=== PATIENT | male | born 1950 | race Caucasian/White ===

== ENCOUNTER 2018-10-25 10:36 | Emergency (ER) | payer OTHER, SELFPAY ==
[2018-10-25 10:38] VITALS: BP 152/81; PULSE 92; RESP 16; TEMP 36.7; O2SAT 91; BMI 21.2
--- NOTE | 2018-10-25 10:48 | CT_ITS ---
STUDY: CT BRAIN WITHOUT CONTRAST REASON FOR EXAM: Male, 68 years old. Headache. RADIATION DOSAGE (If Supplied By Facility): CTDIvol = ( 60.81 ) mGy, DLP = ( 1067.08 ) mGycm TECHNIQUE: Transaxial CT imaging of the brain was performed without administration of intravenous contrast material. Individualized dose optimization techniques were used for this CT. COMPARISON: Comparison is made with prior study dated January 08, 2007. FINDINGS: Normal soft tissue structures. Normal calvarium. There is mild cerebral atrophy with widening of the extra-axial spaces and ventricular dilatation. There are areas of decreased attenuation within the white matter tracts of the supratentorial brain, consistent with microvascular disease changes. Normal basal ganglia and thalami. Normal brainstem. Normal cerebellum. There is no intracranial hemorrhage. There are no findings of an acute ischemic infarction. Opacification of the maxillary sinuses as well as the ethmoid sinuses and right sphenoid sinus. Partial opacification of the frontal sinus worse on the left side. CT/Brain/Head without Contrast IMPRESSION: Chronic involutional changes of the brain. Pansinusitis. Electronically Signed: David Castanon, at 12:58 EDT , Service support ,
--- NOTE | 2018-10-25 11:04 | ED.DCSUM_ITS ---
- ER Visit Summary Date of Service: 10/25/18 Chief Complaint: Headache, nausea, vomiting History of Present Illness: The patient is a 68 M who is otherwise healthy presents to the emergency department with gradual onset of headache, nausea, and one episode of emesis. The patient was recently diagnosed with flu. He finished his Tamiflu yesterday. He states he woke this morning with a dull pressure behind his eyes and fullness in his face. He states it feels like a sinus headache. It did not wake him from sleep. He denies any visual change. He denies any weakness, numbness, tingling, or change in gait. He has no history of aneurysm. He states that he was also nauseated and had one episode of emesis. He denies any abdominal pain. He had normal bowel movement yesterday. He denies any fevers or chills. He denies any other systemic complaints. Physical Examination: Well-appearing patient is in no acute distress. Head is normocephalic, atraumatic. Pupils equal round reactive, extraocular muscles intact. There is no temporal artery tenderness. There is no vesicular rash. Neck supple. Kernig's and Brudzinski's are negative. Heart regular rate and rhythm. Lungs clear, chest nontender. Abdomen soft, nontender, nondistended. Neuro exam displays no focal or lateralizing deficit. 2+ symmetric lower extremity reflexes. No clonus. No ataxia or gait abnormality. Test Results: [] Emergency Department Course and Treatment: The patient presents with facial pressure and dull headache. His symptoms do seem consistent with sinusitis. However, given his age, I did obtain a head CT. Screening labs are unremarkable. The patient was given fentanyl as I wanted to hold on Toradol until his CT was done. With this, he did have some transient hypoxia. The patient does have underlying history of COPD. He was able to be quickly weaned from the oxygen. He ambulated through the emergency department and kept his saturations greater than 92%. His chest x-ray was unremarkable. CT does con firm sinusitis. I am going to treat the patient with Augmentin. On reevaluation is resting comfortably. Is not meningitic. He is nonencephalopathic. His neuro exam is normal. He will be discharged home. Treatment Plan: Disposition: Discharge Impression: 1. Acute sinusitis This note was generated with Dragon dictation software. It may contain incorrect words, spelling, and punctuation that were not noted in review of the chart prior to signing ED Disposition - Plan for ED Patient: Instructions: ED Sinusitis Abx Tx Prescriptions: Amox/Clavulanate Tablet [Augmentin Tablet] 875 mg PO Q12H #20 tab Referrals: Luis Antonio Reed MD [Primary Care Provider] -
[2018-10-25 11:07] LABS: Absolute Lymphocyte Count 1.95 X10^3/ul (0.83-4.51); Absolute Neutrophil Count 6.7 X10^3/uL (2.0-7.7); Basophil# 0.02 X10^3/uL; Basophil% 0.2 % (0-1); Eosinophil# 0.09 X10^3/uL; Hematocrit 44.3 % (40-54); Hemoglobin 14.4 g/dl (13.0-16.5); Lymphocyte # 1.95 X10^3/ul (4.0); Lymphocyte % 20.6 % (19-41); Mean Corp Hgb Conc 32.5 g/gl (32-36); Mean Corpuscular Hgb 31.4 pg (27.0-32.0); Mean Corpuscular Volume 96.5 fL (80-94); Mean Platelet Vol. 9.3 fl (6.2-12.0); Monocyte# 0.64 X10^3/uL; Monocyte% 6.8 % (0-10); Neutrophil # 6.73 X10^3/uL (2.7-7.7); Neutrophil % 71.2 % (47-70); Platelet Count 301 K/mm3 (150-450); RBC Distribution Width SD 49.4 fl (35.1-43.9); Red Blood Count 4.59 M/mm3 (4.6-6.2); White Blood Count 9.5 K/mm3 (4.4-11.0)
[2018-10-25 11:10] LABS: POSITIVE COUNT NO; POSITIVE DIFFERENTIAL NO; POSITIVE MORPHOLOGY NO
[2018-10-25 11:21] LABS: ALB/GLOB Ratio 0.7 RATIO (0.9-2.4); AST(SGOT) 26 U/L (15-37); Alanine Aminotransfer ALT/SGPT 33 U/L (16-61); Albumin, Serum 3.1 g/dL (3.2-5.0); Alkaline Phosphatase 117 U/L (45-117); Anion Gap 8 (5-15); BUN 10 mg/dL (7-18); BUN/Creat Ratio 12.2 RATIO (10-20); Calcium,Total 8.9 mg/dL (8.5-10.1); Chloride 108 mmol/L (98-107); Creatinine, Serum 0.82 mg/dL (0.70-1.30); EST Glomerular Filtration Rate 99 mL/min (>60); Est Glom Filt Rate - Afr Amer 120 mL/min (>60); Estimated Creatinine Clearance 76.37 ml/min; Globulin 4.2 g/dL (2.2-4.2); Glucose 139 mg/dL (74-106); Potassium 3.6 mmol/L (3.5-5.1); Protein, Total 7.3 g/dL (6.4-8.2); Sodium Level 143 mmol/L (136-145)
[2018-10-25] MEDS: Ondansetron 4 MG/2 ML Vial IV (11:28)
[2018-10-25] MEDS: 0.9% Normal Saline 1,000 ML 1000 ML IV (11:28)
[2018-10-25] MEDS: fentaNYL 100 MCG/2 ML Ampul 50 MCG IV (11:28)
--- NOTE | 2018-10-25 11:54 | RAD_ITS ---
STUDY: X-RAY CHEST REASON FOR EXAM: Male, 68 years old. One day history of headaches and nausea. TECHNIQUE: Single AP portable view of the chest. COMPARISON: Comparison is made with prior study dated August 13, 2016. FINDINGS: EKG electrodes are seen. Hyperinflation. Stable increased linear markings at the lung bases suggestive of bibasilar scarring. There is no demonstrated pleural abnormality. Normal size heart. Normal mediastinum and genny. Normal visualized pulmonary arteries. Normal visualized aortic arch and descending thoracic aorta. There are diffuse degenerative changes of the visualized thoracic spine. Normal visualized ribs, clavicles, and shoulders. There is no demonstrated abnormality of the visualized soft tissue structures of the upper abdomen. RAD/Chest 1 View (Portable) IMPRESSION: Hyperinflation. No acute abnormality is seen. Electronically Signed: David Castanon, at 12:39 EDT , Service support ,
[2018-10-25 13:18] VITALS: BP 154/76; PULSE 77; RESP 20; O2SAT 93
[2018-10-25] MEDS: Amox/Clavulanate 875 MG Tablet PO (13:19)
[2018-10-25 14:04] VITALS: BP 146/76; PULSE 84; RESP 18; O2SAT 94
== END 2018-10-25 14:04 | disposition home or self-care (01) ==
PROVIDERS: Emergency Provider Emergency Medicine; Family Provider Family Medicine; PCP Family Medicine
DX: J01.90 Acute sinusitis, unspecified (principal); J44.9 Chronic obstructive pulmonary disease, unspecified; Z87.891 Personal history of nicotine dependence
CPT/HCPCS: 70450; 71045; 80053; 85025; 96361; 96374; 96375; 99285; J7030; A4216; J2405

== ENCOUNTER → 2022-06-14 | Outpatient (CLI) | payer MEDICARE, SELFPAY ==
[2022-06-14 17:50] LABS: Absolute Lymphocyte Count 2.16 X10^3/uL (0.83-4.51); Absolute Neutrophil Count 5.6 X10^3/uL (2.0-7.7); Basophil# 0.05 X10^3/uL; Basophil% 0.6 % (0-1); Eosinophil# 0.29 X10^3/uL; Eosinophils% 3.3 % (0-5); Hematocrit 44.2 % (40-54); Hemoglobin 14.3 g/dL (13.0-16.5); Lymphocyte # 2.16 X10^3/ul (0.83-4.51); Lymphocyte % 24.6 % (19-41); Mean Corp Hgb Conc 32.4 g/dL (32-36); Mean Corpuscular Hgb 31.7 pg (27.0-32.0); Mean Platelet Vol. 9.6 fl (6.2-12.0); Monocyte# 0.61 X10^3/uL; Monocyte% 6.9 % (0-10); NRBC Flagged by Analyzer 0 % (0-5); Neutrophil # 5.64 X10^3/uL (2.7-7.7); Neutrophil % 64.3 % (47-70); Platelet Count 318 K/mm3 (150-450); RBC Distribution Width CV 13.6 % (11.6-14.6); RBC Distribution Width SD 49.5 fl (35.1-43.9); Red Blood Count 4.51 M/mm3 (4.6-6.2); White Blood Count 8.8 K/mm3 (4.4-11.0)
[2022-06-14 19:29] LABS: ALB/GLOB Ratio 0.9 RATIO (0.9-2.4); AST(SGOT) 14 U/L (15-37); Alanine Aminotransfer ALT/SGPT 22 U/L (16-61); Albumin, Serum 3.6 g/dL (3.2-5.0); Alkaline Phosphatase 84 U/L (45-117); Anion Gap 6 (5-15); BUN 8 mg/dL (7-18); BUN/Creat Ratio 8.5 RATIO (10-20); Chloride 104 mmol/L (98-107); Cholesterol 137 mg/dL (200); Creatinine, Serum 0.95 mg/dL (0.70-1.30); EST Glomerular Filtration Rate 83 mL/min (>60); Est Glom Filt Rate - Afr Amer 101 mL/min (>60); Globulin 3.9 g/dL (2.2-4.2); Glucose 97 mg/dL (74-106); High Density Lipoprotein 54 mg/dL; Potassium 4.6 mmol/L (3.5-5.1); Protein, Total 7.5 g/dL (6.4-8.2); Sodium Level 138 mmol/L (136-145); Triglycerides 84 mg/dL; Very Low Density Lipoprotein 17 mg/dL (5-40)
== END | disposition home or self-care (01) ==
PROVIDERS: PCP Family Medicine; Visit Provider Family Medicine
DX: I25.10 Atherosclerotic heart disease of native coronary artery without angina pectoris (principal); E78.5 Hyperlipidemia, unspecified; R06.00 Dyspnea, unspecified
CPT/HCPCS: 36415; 80053; 80061; 84443; 85025

== ENCOUNTER → 2022-07-27 | Outpatient (CLI) | payer MEDICARE, SELFPAY ==
--- NOTE | 2022-07-27 13:02 | CT_ITS ---
STUDY: LOW DOSE CT LUNG CANCER SCREENING REASON FOR EXAM: Male, 71 years old. Lung cancer screening -- 40 no suspicious nodules are seen. Yr hx;former smoker;asymptomatic RADIATION DOSAGE (If Supplied By Facility): CTDIvol = ( 4.02 ) mGy, DLP = ( 143.46 ) mGycm TECHNIQUE: No contrast was administered. Low dose technique was utilized (average mAS-38 and kVp 120). 1.25 mm axial source images with a slice interval of 1.25-mm were reconstructed in lung windows. 2.5 mm axial source images with a slice interval of 2.5-mm were reconstructed in lung windows. 5.0 mm axial source images with a slice interval of 5.0-mm were reconstructed in soft tissue windows. COMPARISON: None. NODULES: Emphysema: Emphysematous changes more prominent in the upper lobes with a centrilobular emphysematous changes. Pleural-based bulla are seen in the right lateral chest. Mild linear scarring at the lung bases as well as in the right middle lobe. Endobronchial lesion: None Aorta: Minimal atherosclerotic plaque formation. CORONARY ARTERIES: Coronary artery calcification is seen. Heart: Unremarkable Pulmonary artery: Unremarkable Mediastinal nodes: Small mediastinal lymph nodes. Other chest and abdominal findings: CT/Low Dose CT Lung Screening IMPRESSION: Lung-RADS category 2 - Continue annual screening with LDCT in 12 months. IMPORTANT NOTES FOR USE: ACR Lung-RADS Version 1.1 Assessment Categories Release Date: 2018 Category: Coded 0-4 bases on nodule(s) with highest degree of suspicion. Negative screen is defined as categories 1 and 2; a positive screen is defined as categories 3 and 4. Category 3 and 4A nodules that are unchanged on interval CT should be coded as category 2, and individuals returned to screening in 12 months. Category 4X: Category 3 or 4 nodules with additional imaging findings that increase the suspicion of lung cancer, such as spiculation, GGN that doubles in size in 1 year, enlarged lymph notes, etc. Category Modifiers: S (significant finding unrelated to lung cancer) Electronically Signed: David Castanon MD at 13:31 EST ,
== END | disposition home or self-care (01) ==
PROVIDERS: PCP Family Medicine; Visit Provider Nurse Practitioner Family
DX: Z12.2 Encounter for screening for malignant neoplasm of respiratory organs (principal); I70.0 Atherosclerosis of aorta; I25.10 Atherosclerotic heart disease of native coronary artery without angina pectoris; R91.8 Other nonspecific abnormal finding of lung field; J98.4 Other disorders of lung; Z87.891 Personal history of nicotine dependence
CPT/HCPCS: 71271

== ENCOUNTER → 2023-06-17 | Outpatient (CLI) | payer MEDICARE, SELFPAY ==
[2023-06-17 12:48] LABS: Absolute Neutrophil Count 5.4 X10^3/uL (2.0-7.7); Basophil# 0.04 X10^3/uL; Basophil% 0.5 % (0-1); Eosinophil# 0.25 X10^3/uL; Eosinophils% 3.1 % (0-5); Hematocrit 46.7 % (40-54); Hemoglobin 14.8 g/dL (13.0-16.5); Lymphocyte % 21.2 % (19-41); Mean Corp Hgb Conc 31.7 g/dL (32-36); Mean Corpuscular Hgb 30.9 pg (27.0-32.0); Mean Corpuscular Volume 97.5 fL (80-94); Mean Platelet Vol. 9.3 fl (6.2-12.0); Monocyte# 0.62 X10^3/uL; Monocyte% 7.7 % (0-10); NRBC Flagged by Analyzer 0 % (0-5); Neutrophil % 67.4 % (47-70); Platelet Count 321 K/mm3 (150-450); RBC Distribution Width CV 13.5 % (11.6-14.6); RBC Distribution Width SD 49.7 fl (35.1-43.9); Red Blood Count 4.79 M/mm3 (4.6-6.2)
[2023-06-17 12:54] LABS: AST(SGOT) 15 U/L (15-37); Alanine Aminotransfer ALT/SGPT 24 U/L (16-61); Albumin, Serum 3.8 g/dL (3.2-5.0); Alkaline Phosphatase 93 U/L (45-117); Anion Gap 4 (5-15); BUN 13 mg/dL (7-18); Calcium,Total 9.1 mg/dL (8.5-10.1); Chloride 105 mmol/L (98-107); Cholesterol 148 mg/dL (200); EST Glomerular Filtration Rate 78 mL/min (>60); Est Glom Filt Rate - Afr Amer 94 mL/min (>60); Globulin 3.8 g/dL (2.2-4.2); Glucose 112 mg/dL (74-106); High Density Lipoprotein 59 mg/dL; Potassium 4.3 mmol/L (3.5-5.1); Protein, Total 7.6 g/dL (6.4-8.2); Sodium Level 138 mmol/L (136-145); Triglycerides 112 mg/dL; Very Low Density Lipoprotein 22 mg/dL (5-40)
== END | disposition home or self-care (01) ==
LOC: BFHLAB 10:52
PROVIDERS: PCP Family Medicine; Visit Provider Nurse Practitioner Family
DX: E78.5 Hyperlipidemia, unspecified (principal); I10 Essential (primary) hypertension
CPT/HCPCS: 36415; 80053; 80061; 85025

== ENCOUNTER → 2023-08-16 | Outpatient (CLI) | payer MEDICARE, SELFPAY ==
--- NOTE | 2023-08-16 14:59 | CT_ITS ---
EXAM: CT CHEST, LUNG CANCER SCREENING WITHOUT INTRAVENOUS CONTRAST CLINICAL INDICATION: SCREEN TECHNIQUE: Helically acquired images were obtained of the chest without intravenous contrast using low dose (LDCT) lung cancer screening protocol. This CT exam was performed using one or more of the following dose reduction techniques: automated exposure control, adjustment of the mA and/or kV according to patient size, and/or use of iterative reconstruction technique. COMPARISON: 07/27/2022 FINDINGS: LUNGS AND PLEURAL SPACES: There is mild emphysematous change in the right upper lobe. There is minimal scarring in the right middle lobe and lung bases. No mass. No pleural effusion or thickening. No pneumothorax. HEART: Unremarkable. Heart size is normal. No pericardial effusion. No significant coronary artery calcifications. MEDIASTINUM: Unremarkable. No mediastinal or hilar adenopathy. Esophagus is unremarkable. No hiatal hernia. THYROID: Unremarkable. No thyroid lesions. BONES/JOINTS: Unremarkable. No suspicious lytic or blastic abnormality. VASCULATURE: Unremarkable. Thoracic aorta is non-dilated. LYMPH NODES: Unremarkable. No enlarged lymph nodes. CT/Low Dose CT Lung Screening IMPRESSION: No acute pulmonary abnormality. There are emphysematous changes in the upper lobes with minimal scarring. There has been no significant change from the reference exam. Lung-RADS score: 1 - Recommend continued annual screening with a low-dose CT (LDCT) in 12 months. Electronically Signed: Evert Montalvo MD at 0:01 EST ,
--- OUTSIDE RECORDS SUMMARY | 2023-08-16 17:38 | XMS RPT_ITS | CCD ---
Author Name Unknown Address [address] [facility] [address] [place] [address] Organization [facility] Care Team Providers Care Firer [employer] Name Role Phone DIMITRY FRYE Unavailable Unavailable MIRIZACH Attending Unavailable MIRIZACH Primary Care Unavailable MIRIZACH BLAKE Admitting Unavailable MIRIZACH Attending Unavailable MIRIZACH BLAKE Primary Care Unavailable MIRIZACH Admitting Unavailable Allergies Allergy Classification Reported Allergen(s) Allergy Type Date of Onset Reaction(s) Facility (1 source) morphine; Translations: [MORPHINE] Drug Allergy 0 AOF [facility] Repository (1 source) OTHER; Translations: [OTHER] Propensity to adverse reactions (disorder) [facility] Repository Results Test Name Value Interpretation Reference Range Facil ity Encounters Encounter Date Encounter Type Care Provider Facility Start: 11-10-2020 End: 11-10-2020 Patient encounter procedure ZACH Holly [facility] Start: 10-20-2020 End: 10-20-2020 Patient encounter procedure ZACH Holly [facility] Start: 11-24-2017 End: 11-25-2017 Ambulatory DIMITRY FRYE [facility] Start: 02-14-2017 End: 02-18-2017 Ambulatory DIMITRY FRYE [facility] Summary Purpose Family History No Family History Records FoundNo Family History Records Found Advance Directives No Advanced Directives Records FoundNo Advanced Directives Records Found Additional Source Comments (unrecognized sect ion and content) No Status Records FoundNo Status Records Found INFORMATION SOURCE (unrecogn ized section and content) DATE CREATED AUTHOR AUTHOR'S MUSA ATCHAYA 11/19/2020 [facility] FOR RECORDS PERTAINING TO PATIENTS WHO ARE OR HAVE BEEN ENROLLED IN A CHEMICAL DEPENDENCY/SUBSTANCEABUSE PROGRAM, SOME INFORMATION MAY BE OMITTED. This clinical summary was aggregated from multiple sources. Caution should be exercised in using it in the provision of clinical care. This summary normalizes information from multiple sources, and as a consequence, information in this document may materially change the coding, format and clinical context of patient data. In addition, data may be omitted in some cases. CLINICAL DECISIONS SHOULD BE BASED ON THE PRIMARY CLINICAL RECORDS. [facility] [employer] [facility]. provides no warranty or guarantee of the accuracy or completeness of information in this document.
== END | disposition home or self-care (01) ==
LOC: CT 14:59
PROVIDERS: PCP Nurse Practitioner Family; Referring Provider Nurse Practitioner Family; Visit Provider Nurse Practitioner Family
DX: Z12.2 Encounter for screening for malignant neoplasm of respiratory organs (principal); F17.210 Nicotine dependence, cigarettes, uncomplicated
CPT/HCPCS: 71271

== ENCOUNTER → 2023-09-30 | Outpatient (CLI) | payer MEDICARE, SELFPAY ==
[2023-09-30 15:52] LABS: Absolute Lymphocyte Count 1.96 X10^3/uL (0.83-4.51); Absolute Neutrophil Count 6.6 X10^3/uL (2.0-7.7); Basophil# 0.05 X10^3/uL; Basophil% 0.5 % (0-1); Eosinophil# 0.28 X10^3/uL; Eosinophils% 2.9 % (0-5); Hematocrit 43.9 % (40-54); Hemoglobin 13.8 g/dL (13.0-16.5); Lymphocyte # 1.96 X10^3/ul (0.83-4.51); Lymphocyte % 20.4 % (19-41); Mean Corp Hgb Conc 31.4 g/dL (32-36); Mean Corpuscular Hgb 30.7 pg (27.0-32.0); Mean Corpuscular Volume 97.8 fL (80-94); Mean Platelet Vol. 9.4 fl (6.2-12.0); Monocyte# 0.73 X10^3/uL; Monocyte% 7.6 % (0-10); NRBC Flagged by Analyzer 0 % (0-5); Neutrophil # 6.55 X10^3/uL (2.7-7.7); Neutrophil % 68.3 % (47-70); Platelet Count 405 K/mm3 (150-450); RBC Distribution Width CV 13.3 % (11.6-14.6); RBC Distribution Width SD 47.9 fl (35.1-43.9); Red Blood Count 4.49 M/mm3 (4.6-6.2); White Blood Count 9.6 K/mm3 (4.4-11.0)
[2023-09-30 16:35] LABS: ALB/GLOB Ratio 0.8 RATIO (0.9-2.4); AST(SGOT) 17 U/L (15-37); Alanine Aminotransfer ALT/SGPT 28 U/L (16-61); Albumin, Serum 3.3 g/dL (3.2-5.0); Alkaline Phosphatase 93 U/L (45-117); Anion Gap 4 (5-15); BUN 8 mg/dL (7-18); Calcium,Total 9.4 mg/dL (8.5-10.1); Chloride 102 mmol/L (98-107); Creatinine, Serum 0.89 mg/dL (0.70-1.30); EST Glomerular Filtration Rate 89 mL/min (>60); Est Glom Filt Rate - Afr Amer 107 mL/min (>60); Globulin 4.3 g/dL (2.2-4.2); Glucose 111 mg/dL (74-106); Magnesium 2.4 mg/dL (1.6-2.6); Potassium 4.1 mmol/L (3.5-5.1); Protein, Total 7.6 g/dL (6.4-8.2); Sodium Level 136 mmol/L (136-145)
== END | disposition home or self-care (01) ==
LOC: BFHLAB 13:46
PROVIDERS: PCP Nurse Practitioner Family; Visit Provider Nurse Practitioner Family
DX: R25.2 Cramp and spasm (principal)
CPT/HCPCS: 36415; 80053; 83735; 85025

== ENCOUNTER → 2023-10-11 | Outpatient (CLI) | payer MEDICARE, SELFPAY ==
--- NOTE | 2023-10-11 13:38 | ADU_ITS ---
Reason For Study: cramps and spasms Right Velocities Left Velocities Ext. Iliac Artery, dist = 168.2 cm./sec. Ext Iliac Artery, dist = 170.8 cm./sec. Common Femoral Artery, mid = 160.4 cm./sec. Common Femoral Artery, mid = 177.5 cm./sec. Supf Femoral Artery, prox = 144.9 cm./sec. Supf. Femoral Artery, prox = 195.9 cm./sec. Supf Femoral Artery, mid = 213.0 cm./sec. Supf. Femoral Artery, mid = 89.7 cm./sec. Common Femoral Artery, dist = 92.8 cm./sec. Supf. Femoral Artery, dist = 105.2 cm./sec. Supf Femoral Artery, dist. = 92.8 cm./sec. Profunda Femoral Artery = 113.1 cm./sec. Profunda Femoral Artery = 72.3 cm./sec. Popliteal Artery, proximal, = 120.8 cm./sec. Popliteal Artery, prox. = 212.8 cm./sec. Ant.Tibial Artery, prox = 68.7 cm./sec. Ant. Tibial Artery, prox = 146.9 cm./sec. Ant Tibial Artery, mid = 68.7 cm./sec. Ant. Tibial Artery, mid = 94.2 cm./sec. Ant. Tibial Artery, distal = 70.5 cm./sec. Ant. Tibial Artery, dist = 105.1 cm./sec. Post. Tibial Artery, prox = 92.4 cm./sec. Post. Tibial Artery, prox = 54.2 cm./sec. Post Tibial Artery, mid = 65.0 cm./sec. Post. Tibial Artery, mid = 67.1 cm./sec. Post Tibial Artery, dist. = 92.4 cm./sec. Post. Tibial Artery, dist = 38.2 cm./sec. Peroneal Artery, prox = 37.6 cm./sec. Peroneal Artery, prox = 71.1 cm./sec. Peroneal Artery, mid = 74.2 cm./sec. Peroneal Artery, mid = 96.6 cm./sec. Peroneal Artery,dist. = 70.5 cm./sec. Peroneal Artery,dist = 72.9 cm./sec. Procedure The exam was diagnostic. Exam performed in department. VL/US Art Duplex Bilat Lower Ext Interpretation Summary Right lower extremity arteries patent with normal velocities and no stenosis id entified. Posterior tibial artery with diminished waveforms. Left lower extremity arteries patent with normal velocities and no evidence of stenosis. Normal waveforms throughout Ordering Physician: Nataliya Blanca Performed By: Angel Frost RVT
== END | disposition home or self-care (01) ==
LOC: CVS 13:37
PROVIDERS: PCP Nurse Practitioner Family; Referring Provider Nurse Practitioner Family; Visit Provider Nurse Practitioner Family
DX: R25.2 Cramp and spasm (principal); R29.898 Other symptoms and signs involving the musculoskeletal system; R09.89 Other specified symptoms and signs involving the circulatory and respiratory systems
CPT/HCPCS: 93925

== ENCOUNTER → 2023-10-14 | Outpatient (CLI) | payer MEDICARE, SELFPAY ==
--- NOTE | 2023-10-14 12:00 | RAD_ITS ---
STUDY: X-RAY - LUMBAR SPINE REASON FOR EXAM: Male, 72 years old. LEG PAIN TECHNIQUE: 4 view(s) of the lumbar spine were obtained. COMPARISON: None FINDINGS: Normal lumbar lordosis. There is no substantial scoliosis. There is a normal alignment of the vertebrae. Normal vertebral bodies with spurring at the endplates. Normal disc space heights. The soft tissue structures are unremarkable. Calcified aorta. RAD/L/S Spine Min 4 Views IMPRESSION: Degenerative changes of the lumbar vertebral column. Electronically Signed: Morteza Gil DO at 18:36 EST Reading Location ID and State: [facility] / [place] Tel [phone], Service support ,
--- OUTSIDE RECORDS SUMMARY | 2023-10-14 12:16 | XMS RPT_ITS | CCD ---
Author Name Unknown Address [address] [facility] [address] [place] [address] Organization [facility] Care Team Providers Care Director Post Name Role Phone DIMITRY FRYE Unavailable Unavailable MIRIZACH Attending Unavailable MIRIZACH Primary Care Unavailable MIRIZACH BLAKE Admitting Unavailable MIRIZACH Attending Unavailable MIRIAZCH BLAKE Primary Care Unavailable MIRIZACH Admitting Unavailable Allergies Allergy Classification Reported Allergen(s) Allergy Type Date of Onset Reaction(s) Facility (1 source) morphine; Translations: [MORPHINE] Drug Allergy 0 AOF [facility] Repository (1 source) OTHER; Translations: [OTHER] Propensity to adverse reactions (disorder) [facility] Repository Results Test Name Value Interpretation Reference Range Facil ity Encounters Encounter Date Encounter Type Care Provider Facility Start: 11-10-2020 End: 11-10-2020 Patient encounter procedure ZACH Holly [facility] Start: 10-20-2020 End: 10-20-2020 Patient encounter procedure ZACH Holly [facility] Start: 11-24-2017 End: 11-25-2017 Ambulatory DIMITRY FRYE [facility] Start: 02-14-2017 End: 02-18-2017 Ambulatory DIMITRY FRYE [facility] Summary Purpose Family History No Family History Records FoundNo Family History Records Found Advance Directives No Advanced Directives Records FoundNo Advanced Directives Records Found Additional Source Comments (unrecognized sect ion and content) No Status Records FoundNo Status Records Found INFORMATION SOURCE (unrecogn ized section and content) DATE CREATED AUTHOR AUTHOR'S MUSA ATCHAYA 11/19/2020 [facility] FOR RECORDS PERTAINING TO PATIENTS WHO [...] BE BASED ON THE PRIMARY CLINICAL RECORDS. [facility] [employer] [facility]. provides no warranty or guarantee of the accuracy or completeness of information in this document.
== END | disposition home or self-care (01) ==
LOC: RAD 11:55
PROVIDERS: PCP Nurse Practitioner Family; Referring Provider Nurse Practitioner Family; Visit Provider Nurse Practitioner Family
DX: M79.604 Pain in right leg (principal); M79.605 Pain in left leg
CPT/HCPCS: 72100; 72110

== ENCOUNTER → 2024-03-05 | Outpatient (CLI) | payer MEDICARE, SELFPAY ==
--- NOTE | 2024-03-05 13:30 | RAD_ITS ---
STUDY: X-RAY CHEST REASON FOR EXAM: Male, 73 years old. COUGH - R/O PNEUMONIA TECHNIQUE: PA and lateral views of the chest. COMPARISON: Comparison is made with prior study dated October 25, 2018. FINDINGS: There is hyperinflation of the lungs consistent with chronic obstructive lung disease (COPD). Increased markings are seen in the right lower lobe with areas of confluence. Early infiltrate should be ruled out. Radiographic follow-up recommended. There is no demonstrated pleural abnormality. Normal size heart. Normal mediastinum and genny. There is prominence of the pulmonary hilar arteries without peripheral pulmonary vascular congestion, suggesting pulmonary hypertension. Normal visualized aortic arch and descending thoracic aorta. There are diffuse degenerative changes of the visualized thoracic spine. There is deformity of the right scapula. There is no demonstrated abnormality of the visualized soft tissue structures of the upper abdomen. RAD/Chest PA and Lateral IMPRESSION: Hyperinflation. Increased markings at the right lung base suggestive of early infiltrate. Follow-up recommended. Electronically Signed: David Castanon MD at 12:41 EDT ,
== END | disposition home or self-care (01) ==
LOC: MTRAD 13:29
PROVIDERS: PCP Nurse Practitioner Family; Referring Provider Nurse Practitioner Family; Visit Provider Nurse Practitioner Family
DX: R05.9 Cough, unspecified (principal); J44.9 Chronic obstructive pulmonary disease, unspecified
CPT/HCPCS: 71046

== ENCOUNTER → 2024-06-18 | Outpatient (CLI) | payer MEDICARE, SELFPAY ==
--- OUTSIDE RECORDS SUMMARY | 2024-06-18 17:08 | XMS RPT_ITS | CCD ---
Author Organization [facility] Care Team Providers Care Sports Equipment Racker Name Role Phone DIMITRY FRYE Unavailable Unavailable MIRIZACH Attending Unavailable MIRI, ZACH Holly Primary Care Unavailable MIRIZACH Admitting Unavailable MIRI, ZACH Holly Attending Unavailable MIRI, ZACH Holly Primary Care Unavailable MIRI, ZACH Holly Admitting Unavailable Allergies Allergy Classification Reported Allergen(s) Allergy Type Date of Onset Reaction(s) Facility (1 source) morphine; Translations: [MORPHINE] Drug Allergy 0 AOF [facility] Repository (1 source) OTHER; Translations: [OTHER] Propensity to adverse reactions (disorder) [facility] Repository Results Test Name Value Interpretation Reference Range Facility [facility] 11-24-2017 CNOV Office Visit (UCWSTR) LÁZARO SMITH ([id number]) 1950 MDate Time Provider Department11/24/17 4:45 PM KELLI HAIRSTON (ALEJANDRO) WSTR During your visit today, we recorded the following information about you: Temperature Pulse Respiration Blood pressure 98.8 degrees 102/minute 18/minute 122/78 Weight 78 kgKelli Hairston APRN.CNP 11/24/2017 5:06 PM SignedSubjectiveHPIHPI Lázaro Caro Willie is a 67 year old male who presents today for CC of coughThis started today. He is also having body aches. Symptoms are worsened bylying down. he has tried no treatment or medicaitons Risk factors co workersPMH COPD, h/o 20+ years smoking.BP 122/78 Pulse 102 Temp 37.1 ?C (98.8 ?F) (Tympanic) Resp 18 Wt 78 kg(172 lb) SpO2 95%ALLERGIESAllergen Reactions- Environmental [Othe*- Morphine Vomiting- Latex Lind [Other]ACTIVE PROBLEM LISTUnspecified Cardiovascular DiseaseChest Pain, UnspecifiedEsophageal RefluxPure HypercholesterolemiaUnspecified Asthma(493.90)Allergy, Unspecified Not Elsewhere ClassifiedUnspecified Essential HypertensionOther Voice and Resonance DisordersAbdominal Pain, Unspecified SiteHypertrophy of Prostate With Urinary Obstruction and Other Lower Urinary TractSymptoms (Luts)Chronic ProstatitisBack PainBladder Neck ObstructionClosed Fracture of Unspecified Part of ScapulaAdhesive Capsulitis of ShoulderFamily HistoryProblem Relation Age of Onset- Cancer Father liver- Heart MotherSocial History Marital status: Spouse name: Laura Years of education: Number of children: 3Occupational HistoryOccupation Employer Comment [employer]*Social History Main Topics Smoking status: Former Smoker Packs/day: 1.50 Years: 20.00 Types: Cigarettes Quit date: 08/15/2007 Smokeless status: Never Used Alcohol use: Yes Comment: hx alcoholism Drug use: No Sexual activity: Yes Partners with: FemaleReview of SystemsConstitutional: Negative. Negative for chills, fever and malaise/fatigue.HENT: Negative for congestion, ear pain, sinus pain and sore throat.Respiratory: Positive for cough. Negative for sputum production, shortness ofbreath and wheezing.Cardiovascular: Negative for chest pain.Musculoskeletal: Positive for myalgias.Skin: Negative for rash.Neurological: Negative for headaches.ObjectivePhysical ExamConstitutional: He is well-developed, well-nourished, and in no distress.HENT:Head: Normocephalic and atraumatic.Right Ear: Tympanic membrane, external ear and ear canal normal. Tympanicmembrane is not injected, not erythematous, not retracted and not bulging. Nomiddle ear effusion.Left Ear: Tympanic membrane, external ear and ear canal normal. Tympanicmembrane is not injected, not erythematous, not retracted and not bulging. Nomiddle ear effusion.Nose: Mucosal edema and rhinorrhea present. Right sinus exhibits no maxillarysinus tenderness and no frontal sinus tenderness. Left sinus exhibits nomaxillary sinus tenderness and no frontal sinus tenderness.Mouth/Throat: Uvula is midline and mucous membranes are normal. Posteriororopharyngeal erythema present. No oropharyngeal exudate, posteriororopharyngeal edema or tonsillar abscesses.Eyes: Conjunctivae and EOM are normal. Pupils are equal, round, and reactive tolight.Neck: Normal range of motion.Cardiovascular: Normal rate, regular rhythm and normal heart sounds.Pulmonary/Chest: Effort normal. No respiratory distress. He has no decreasedbreath sounds. He has wheezes (scattered expiratory). He has no rhonchi. He hasno rales.Lymphadenopathy: Head (right side): No submental, no submandibular, no tonsillar, nopreauricular and no posterior auricular adenopathy present. Head (left side): No submental, no submandibular, no tonsillar, nopreauricular and no posterior auricular adenopathy present. He has no cervical adenopathy. Right cervical: No posterior cervical adenopathy present. Left cervical: No posterior cervical adenopathy present. Right: No supraclavicular adenopathy present. Left: No supraclavicular adenopathy present.Skin: Skin is warm and dry.Psychiatric: Affect normal.Nursing note and vitals reviewed. ASSESSMENT/PLAN:1. COPD with exacerbation (HCC) - ICD9: 491.21, ICD10: J44.1 (primary diagnosis)- Discussed use of Prednisone 5 day course and albuterol inhaler as needed forcough, wheeze, shortness of breath* Prednisone 40 mg (2 tablets) per day for 5 days, take in morning or early inday* Do not NSAIDs during this 5 day course (ibuprofen, naproxen, Motrin, Aleve,Advil) Tylenol only during prednisone use* Follow up with primary care provider if no improvement with treatment* Seek medical care immediately, call 911, go to ER if you have chest pain,difficulty breathing, shortness of breath, inability to swallow.Rest, oral fluids, tylenol or motrin as needed for pain or feverSee your doctor if not improvingSeek emergency room care for worsening symptoms or condition changesPrednisone for airway congestion/wheezing/coughingZithro max for infection please take as directed and finish the entireprescription unless instructed otherwise - start if symptoms worsen, and notalleviated by prednisone and albuterol2. Cough - ICD9: 786.2, ICD10: [id number] and treatment plan were discussed and questions were answered to thepatient's satisfaction. Pt acknowledged understanding of concepts and follow upplan.Specific signs and symptoms that would indicate the need for higher level ofcare were discussed in detail warranting prompt ER evaluation.Pebbles Hernadez APRN.CNP 11/24/2017 5:02 PM SignedASSESSMENT/PLAN:1. COPD with exacerbation (HCC) - ICD9: 491.21, ICD10: J44.1 (primary diagnosis)- Discussed use of Prednisone 5 day course and albuterol inhaler as needed forcough, wheeze, shortness of breath* Prednisone 40 mg (2 tablets) per day for 5 days, take in morning or early inday* Do not NSAIDs during this 5 day course (ibuprofen, naproxen, Motrin, Aleve,Advil) Tylenol only during prednisone use* Follow up with primary care provider if no improvement with treatment* Seek medical care immediately, call 911, go to ER if you have chest pain,difficulty breathing, shortness of breath, inability to swallow.Rest, oral fluids, tylenol or motrin as needed for pain or feverSee your doctor if not improvingSeek emergency room care for worsening symptoms or condition changesPrednisone for airway congestion/wheezing/coughingZithro max for infection please take as directed and finish the entireprescription unless instructed otherwise - start if symptoms worsen, and notalleviated by prednisone and albuterol2. Cough - ICD9: 786.2, ICD10: Z06Faeexvsbm Provider: SELF [200]Allergies As of Date: 11/24/2017 Noted Allergy ReactionENVIRONMENTAL [Other] 03/31/2005MORPHINE 12/18/2009 11 - Vomitinglatex paint [Other] 04/08/2006Date Reviewed: 11/24/2017Reviewed by: Kelli Hairston - Fully AssessedReason for Visit: cough and HOBSON [Other] Cmt: symptoms started this amPrimary Visit Diagnosis:COPD with exacerbation (HCC) [J44.1] Other Visit Diagnosis:Cough [R05]Order(s):predniSONE (DELTASONE) 20 mg tabletPrednisone 40 mg (2-20mg tablets) po QD for 5 daysDisp: 10 tabletRfl: 0 azithromycin (ZITHROMAX Z-FARRUKH) 250 mg tabletTake 2 tablets day one, then, 1 tablet daily until gone.Disp: 1 PackageRfl: 0Prescriptions as of 11/24/2017 Sig: DISULFIRAM 500 MG TABLET CLOPIDOGREL 75 MG TABLET HYOSCYAMINE 0.125 MG SUBLINGU* Take 1 tablet by mouth twice * DEXLANSOPRAZOLE 60 MG CAPSULE* Take by mouth. ZOCOR 40 MG TABLET Take one(1) tablet two(2) nuria* IMDUR 30 MG TABLET,EXTENDED R* 1/2 tab a day FISH OIL 500 MG CAPSULE Take one(1) capsule daily. DXVFOMAOSMDQE-SKEGIAQRGEGJR-Q* as needed for migraines ZONEGRAN 100 MG CAPSULE once daily NITROSTAT 0.4 MG SUBLINGUAL T* Place one(1) tablet on tongue* TOPROL XL 25 MG TABLET,EXTEND* Take one(1) tablet daily. CENTRUM SILVER TABLET Take one(1) tablet daily. FOLIC ACID 400 MCG TABLET Take one(1) tablet daily. PREDNISONE 20 MG TABLET Prednisone 40 mg (2-20mg tabl* AZITHROMYCIN 250 MG TABLET Take 2 tablets day one, then,*Problem List As Of Date 11/24/2017 Noted Resolved ASCVD [I25.10] INVALID FOR* CHEST PAIN NOS [R07.9] INVALID FOR* ESOPHAGEAL REFLUX [K21.9] INVALID FOR* PURE HYPERCHOLESTEROLEM [E78.00] INVALID FOR* ASTHMA UNSPECIFIED [J45.909] INVALID FOR* ALLERGY, UNSPECIFIED [T78.40XA] INVALID FOR* HYPERTENSION NOS [I10] INVALID FOR* VOICE DISTURBANCE NEC [R49.8] INVALID FOR* ABDOMINAL PAIN UNSPEC SITE [R10.9] INVALID FOR* HYPERTROPHY PROSTATE WITH OBST [N40.1] INVALID FOR* CHRONIC PROSTATITIS [N41.1] INVALID FOR* Back Pain [M54.9] INVALID FOR* Bladder Neck Obstruction [N32.0] INVALID FOR* Closed Fracture of Unspecified Part of Scapula *INVALID FOR* Adhesive Capsulitis of Shoulder [M75.00] INVALID FOR* Other instructions from your clinician: ASSESSMENT/PLAN: 1. COPD with exacerbation (HCC) - ICD9: 491.21, ICD10: J44.1 (primary diagnosis) - Discussed use of Prednisone 5 day course and albuterol inhaler as needed for cough, wheeze, shortness of breath * Prednisone 40 mg (2 tablets) per day for 5 days, take in morning or early in day * Do not NSAIDs during this 5 day course (ibuprofen, naproxen, Motrin, Aleve, Advil) Tylenol only during prednisone use * Follow up with primary care provider if no improvement with treatment * Seek medical care immediately, call 911, go to ER if you have chest pain, difficulty breathing, shortness of breath, inability to swallow. Rest, oral fluids, tylenol or motrin as needed for pain or fever See your doctor if not improving Seek emergency room care for worsening symptoms or condition changes Prednisone for airway congestion/wheezing/coughing Zithromax for infection please take as directed and finish the entire prescription unless instructed otherwise - start if symptoms worsen, and not alleviated by prednisone and albuterol 2. Cough - ICD9: 786.2, ICD10: [id number] ordered this encounter Disp Refills Start End PREDNISONE 20 MG TABLET 10 t* 0 11/24/2017 Sig: Prednisone 40 mg (2-20mg tablets) po QD for 5 days AZITHROMYCIN 250 MG TABLET 1 Pa* 0 11/24/2017 11/29/2017 Class: Print RX Sig: Take 2 tablets day one, then, 1 tablet daily until gone. Status:Closed by KELLI HAIRSTON CNP on 11/24/17 [facility] PROGRESSon 11-24-2017 PROGRESS HNO ID: [id number] thor: Kelli (Alejandro) Blancaervice: (none)Author Type: Nurse PractitionerType: Progress NotesFiled: 11/24/2017 5:06 PMNote Text:SubjectiveHPIHPI Lázaro Smith is a 67 year old male who presents today for CC ofcough This started today. He is also having body aches. Symptoms areworsened by lying down. he has tried no treatment or medicaitons Riskfactors co workers PMH COPD, h/o 20+ years smoking.BP 122/78 Pulse 102 Temp 37.1 ?C (98.8 ?F) (Tympanic) Resp 18 Wt78 kg (172 lb) SpO2 95%ALLERGIESAllergen Reactions- Environmental [Othe*- Morphine Vomiting- Latex Lind [Other]ACTIVE PROBLEM LISTUnspecified Cardiovascular DiseaseChest Pain, UnspecifiedEsophageal RefluxPure HypercholesterolemiaUnspecified Asthma(493.90)Allergy, Unspecified Not Elsewhere ClassifiedUnspecified Essential HypertensionOther Voice and Resonance DisordersAbdominal Pain, Unspecified SiteHypertrophy of Prostate With Urinary Obstruction and Other Lower UrinaryTract Symptoms (Luts)Chronic ProstatitisBack PainBladder Neck ObstructionClosed Fracture of Unspecified Part of ScapulaAdhesive Capsulitis of ShoulderFamily HistoryProblem Relation Age of Onset- Cancer Father liver- Heart MotherSocial History Marital status: Spouse name: Laura Years of education: Number of children: 3Occupational HistoryOccupation Employer Comment [employer]*Social History Main Topics Smoking status: Former Smoker Packs/day: 1.50 Years: 20.00 Types: Cigarettes Quit date: 08/15/2007 Smokeless status: Never Used Alcohol use: Yes Comment: hx alcoholism Drug use: No Sexual activity: Yes Partners with: FemaleReview of SystemsConstitutional: Negative. Negative for chills, fever and malaise/fatigue.HENT: Negative for congestion, ear pain, sinus pain and sore throat.Respiratory: Positive for cough. Negative for sputum production, shortnessof breath and wheezing.Cardiovascular: Negative for chest pain.Musculoskeletal: Positive for myalgias.Skin: Negative for rash.Neurological: Negative for headaches.ObjectivePhysical ExamConstitutional: He is well-developed, well-nourished, and in no distress.HENT:Head: Normocephalic and atraumatic.Right Ear: Tympanic membrane, external ear and ear canal normal. Tympanicmembrane is not injected, not erythematous, not retracted and not bulging.No middle ear effusion.Left Ear: Tympanic membrane, external ear and ear canal normal. Tympanicmembrane is not injected, not erythematous, not retracted and not bulging. No middle ear effusion.Nose: Mucosal edema and rhinorrhea present. Right sinus exhibits nomaxillary sinus tenderness and no frontal sinus tenderness. Left sinusexhibits no maxillary sinus tenderness and no frontal sinus tenderness.Mouth/Throat: Uvula is midline and mucous membranes are normal. Posteriororopharyngeal erythema present. No oropharyngeal exudate, posteriororopharyngeal edema or tonsillar abscesses.Eyes: Conjunctivae and EOM are normal. Pupils are equal, round, andreactive to light.Neck: Normal range of motion.Cardiovascular: Normal rate, regular rhythm and normal heart sounds.Pulmonary/Chest: Effort normal. No respiratory distress. He has nodecreased breath sounds. He has wheezes (scattered expiratory). He has norhonchi. He has no rales.Lymphadenopathy: Head (right side): No submental, no submandibular, no tonsillar, nopreauricular and no posterior auricular adenopathy present. Head (left side): No submental, no submandibular, no tonsillar, nopreauricular and no posterior auricular adenopathy present. He has no cervical adenopathy. Right cervical: No posterior cervical adenopathy present. Left cervical: No posterior cervical adenopathy present. Right: No supraclavicular adenopathy present. Left: No supraclavicular adenopathy present.Skin: Skin is warm and dry.Psychiatric: Affect normal.Nursing note and vitals reviewed. ASSESSMENT/PLAN:1. COPD with exacerbation (HCC) - ICD9: 491.21, ICD10: J44.1 (primarydiagnosis)- Discussed use of Prednisone 5 day course and albuterol inhaler as neededfor cough, wheeze, shortness of breath* Prednisone 40 mg (2 tablets) per day for 5 days, take in morning orearly in day* Do not NSAIDs during this 5 day course (ibuprofen, naproxen, Motrin,Aleve, Advil) Tylenol only during prednisone use* Follow up with primary care provider if no improvement with treatment* Seek medical care immediately, call 911, go to ER if you have chestpain, difficulty breathing, shortness of breath, inability to swallow.Rest, oral fluids, tylenol or motrin as needed for pain or feverSee your doctor if not improvingSeek emergency room care for worsening symptoms or condition changesPrednisone for airway congestion/wheezing/coughingZithro max for infection please take as directed and finish the entireprescription unless instructed otherwise - start if symptoms worsen, andnot alleviated by prednisone and albuterol2. Cough - ICD9: 786.2, ICD10: B25Dazlwjidk and treatment plan were discussed and questions were answered tothe patient's satisfaction. Pt acknowledged understanding of concepts andfollow up plan.Specific signs and symptoms that would indicate the need for higher levelof care were discussed in detail warranting prompt ER evaluation.Kelli Hairston APRN.VACUUM CLEANER REPAIR PERSON [facility] CNOVon 02-14-2017 CNOV Office Visit (UCWSTR) LÁZARO SMITH ([id number]) 1950 MDate Time Provider Department02/14/17 12:30 PM KAYLEEN SHI) [facility] During your visit today, we recorded the following information about you: Temperature Pulse Respiration Blood pressure 97.7 degrees 88/minute 18/minute 109/72 Weight 78.5 kgKayleen Shi PA-C 02/14/2017 1:00 PM SignedHPI Comments: Pt presents with sinus pain and congestion for 4 days. No temptaken at home, has had the chills. He has had cough. Bringing up some phlegm,greyish color. Former smoker quit ten years ago. No wheezing. Pt has triedSudafed otc which provided no relief. No vomiting or diarrhea. No chest pain orshortness of breath.Patient is a 66 year old male presenting with cough and congestion.CoughAssociated symptoms include chills. Pertinent negatives include no chest pain,no ear pain, no sore throat, no myalgias, no shortness of breath and nowheezing.Nasal CongestionAssociated symptoms include chills, congestion and coughing. Pertinentnegatives include no ear pain, shortness of breath or sore throat.PAST MEDICAL HISTORYDiagnosis Date- Allergy, unspecified not elsewhere classified 03/31/2005- Benign neoplasm of colon- Chest pain, unspecified 03/31/2005- Esophageal reflux 03/31/2005- Other voice and resonance disorders 03/31/2005- Pure hypercholesterolemia 03/31/2005- Unspecified asthma(493.90) 03/31/2005- Unspecified cardiovascular disease 03/31/2005- Unspecified essential hypertension 03/31/2005- Unspecified transient cerebral ischemia 04/08/05Current Outpatient Prescriptions:Disulfiram 500 mg tab Disp: Rfl:clopidogrel (PLAVIX) 75 mg tablet Disp: Rfl:hyoscyamine sublingual (LEVSIN/SL) 0.125 mg subl Take 1 tablet by mouth twicedaily before meals. Disp: 60 tablet Rfl: 2Dexlansoprazole (DEXILANT) 60 mg CpDM Take by mouth. Disp: Rfl:simvastatin(ZOCOR 40 MG TAB) Take one(1) tablet two(2) times daily. Disp: 30Rfl: 11isosorbide mononitrate(IMDUR 30 MG 24 HR TAB) 1/2 tab a day Disp: 0 Rfl: 0omega-3 fatty acids(FISH OIL 500 MG CAP) Take one(1) capsule daily. Disp: Rfl:0DBLMNDUBNLSCH-EEAWAEXKSLVZF-H ICHLORALPHENAZONE 325 MG-65 MG-100 MG ORAL CAP asneeded for migraines Disp: Rfl: 0zonisamide(ZONEGRAN 100 MG CAP) once daily Disp: Rfl: 0nitroglycerin(NITROSTAT 0.4 MG SUBLINGUAL TAB) Place one(1) tablet on tongue asneeded for chest pain. Or cerebral symptoms Disp: 25 Rfl: 1metoprolol succinate(TOPROL XL 25 MG 24 HR TAB) Take one(1) tablet daily. Disp:30 Rfl: 11CENTRUM SILVER TAB Take one(1) tablet daily. Disp: Rfl: 0FOLIC ACID 400 MCG ORAL TAB Take one(1) tablet daily. Disp: Rfl: 0amoxicillin-clavulanic acid (AUGMENTIN) 875-125 mg per tablet Take 1 tablet bymouth twice daily for 10 days. Disp: 20 tablet Rfl: 0No current facility-administered medications for this visit.PAST SURGICAL HISTORY01/26/1980: [id number]/25/05: COLONOSCOP W/ OR W/O [facility] SPEC Comment: Laboyluntjg97/1/2013: COLONOSCOP W/ OR W/O [facility] SPEC Comment: Colonoscopy09/01/2005: CYSTO.PANENDO Comment: Cystoscopy, laser photovaporization of the prostate09/11/2001: LEFT HEART CATH,PERCUTANEOUS Comment: Cardiac cath, L heart01/2005: OP BRONCHOS DIAG, W/WO WASHING Comment: [id number]: PAST SURGICAL HISTORY OF Comment: cardiac stentNo date: REMOVAL OF TONSILS,ANDlt;11 Y/O Comment: [id number]: REPAIR ING HERNIA,5+Y/O,REDUCIBL Comment: Hernia repair, inguinal RIGHTFAMILY HISTORY Cancer Father Comment: liver Heart MotherSocial HistorySubstance Use Topics- Smoking status: Former Smoker Packs/day: 1.50 Years: 20.00 Types: Cigarettes Quit date: 08/15/2007- Smokeless tobacco: Not on file- Alcohol use Yes Comment: hx alcoholismBP 109/72 Pulse 88 Temp 36.5 ?C (97.7 ?F) (Tympanic) Resp 18 Wt 78.5 kg(173 lb)Review of SystemsConstitutional: Positive for chills. Negative for fever.HENT: Positive for congestion. Negative for ear pain and sore throat.Respiratory: Positive for cough and sputum production. Negative for hemoptysis,shortness of breath and wheezing.Cardiovascular: Negative for chest pain.Gastrointestinal: Negative for heartburn, nausea and vomiting.Genitourinary: Negative for dysuria and urgency.Musculoskeletal: Negative for myalgias.All other systems reviewed and are negative.Physical ExamConstitutional: He is well-developed, well-nourished, and in no distress.HENT:Head: Normocephalic and atraumatic.Right Ear: External ear normal.Left Ear: External ear normal.Nose: Nose normal.Mouth/Throat: Oropharynx is clear and moist. No oropharyngeal exudate.Eyes: Conjunctivae are normal. Pupils are equal, round, and reactive to light.Neck: Neck supple.Cardiovascular: Normal rate, regular rhythm and normal heart sounds.Pulmonary/Chest: Effort normal and breath sounds normal. No respiratorydistress. He has no wheezes.Lymphadenopathy: He has no cervical adenopathy.ASSESSMENT/PLAN:1. Acute non-recurrent maxillary sinusitis - ICD9: 461.0, ICD10: J01.00- Will begin treatment with Augmentin 875 mg PO BID for 10 days- Supportive care with plenty of fluids, rest, and analgesia prn.- Follow up in one week if symptoms persist or worsen.Sarah Oneill PA-C 02/14/2017 12:57 PM SignedSINUSITIS:You have sinusitis, an infection of the sinus cavities around the nose. Thisinfection usually follows a respiratory illness; it can also be related toallergies, changes in atmospheric pressure (flying, diving), or anything thatblocks nasal drainage. Symptoms include: headache, facial pain, a thick nasaldischarge, congestion, and cough.The treatment includes antibiotic therapy, increasing oral fluids, and painmedication if needed. Nose spray decongestants (Afrin, Kevin-Synephrine) and oraldecongestants may be needed to reduce congestion and drainage. Rarely the sinusmust be irrigated to remove the infected material.Sinusitis can lead to serious complications by spreading to other areas such asthe eye or brain. Please call your doctor or return here right away if you haveany of the following more serious symptoms: - Unusual swelling around the eye or trouble seeing. - Increasing pain, severe headache, or toothache. - Nausea, vomiting, or unusual drowsiness.Referring Provider: SELF [200]Allergies As of Date: 02/14/2017 Noted Allergy ReactionENVIRONMENTAL [Other] 03/31/2005MORPHINE 12/18/2009 11 - Vomitinglatex paint [Other] 04/08/2006Date Reviewed: 02/14/2017Reviewed by: Steph Green Registered Nurse Ambulatory - Fully AssessedReason for Visit: Pain, Sinus [857] Cmt: sinus pressure/drainage x 3 days Cough [28] Cmt: cough,chest congestion x 3 days Nasal Congestion [235] Cmt: x 3 daysPrimary Visit Diagnosis:Acute non-recurrent maxillary sinusitis [J01.00]Order(s):amoxicillin-clavu lanic acid (AUGMENTIN) 875-125 mg per tabletTake 1 tablet by mouth twice daily for 10 days.Disp: 20 tabletRfl: 0Prescriptions as of 02/14/2017 Sig: DISULFIRAM 500 MG TABLET CLOPIDOGREL 75 MG TABLET HYOSCYAMINE 0.125 MG SUBLINGU* Take 1 tablet by mouth twice * DEXLANSOPRAZOLE 60 MG CAPSULE* Take by mouth. ZOCOR 40 MG TABLET Take one(1) tablet two(2) nuria* IMDUR 30 MG TABLET,EXTENDED R* 1/2 tab a day FISH OIL 500 MG CAPSULE Take one(1) capsule daily. GHXHZXJXUNEZJ-SBIYMRHEJPZSK-R* as needed for migraines ZONEGRAN 100 MG CAPSULE once daily NITROSTAT 0.4 MG SUBLINGUAL T* Place one(1) tablet on tongue* TOPROL XL 25 MG TABLET,EXTEND* Take one(1) tablet daily. CENTRUM SILVER TABLET Take one(1) tablet daily. FOLIC ACID 400 MCG TABLET Take one(1) tablet daily. AMOXICILLIN 875 MG-POTASSIUM * Take 1 tablet by mouth twice *Problem List As Of Date 02/14/2017 Noted Resolved ASCVD [I25.10] INVALID FOR* CHEST PAIN NOS [R07.9] INVALID FOR* ESOPHAGEAL REFLUX [K21.9] INVALID FOR* PURE HYPERCHOLESTEROLEM [E78.00] INVALID FOR* ASTHMA UNSPECIFIED [J45.909] INVALID FOR* ALLERGY, UNSPECIFIED [T78.40XA] INVALID FOR* HYPERTENSION NOS [I10] INVALID FOR* VOICE DISTURBANCE NEC [R49.8] INVALID FOR* ABDOMINAL PAIN UNSPEC SITE [R10.9] INVALID FOR* HYPERTROPHY PROSTATE WITH OBST [N40.1] INVALID FOR* CHRONIC PROSTATITIS [N41.1] INVALID FOR* Back Pain [M54.9] INVALID FOR* Bladder Neck Obstruction [N32.0] INVALID FOR* Closed Fracture of Unspecified Part of Scapula *INVALID FOR* Adhesive Capsulitis of Shoulder [M75.00] INVALID FOR* Other instructions from your clinician: SINUSITIS: You have sinusitis, an infection of the sinus cavities around the nose. This infection usually follows a respiratory illness; it can also be related to allergies, changes in atmospheric pressure (flying, diving), or anything that blocks nasal drainage. Symptoms include: headache, facial pain, a thick nasal discharge, congestion, and cough. The treatment includes antibiotic therapy, increasing oral fluids, and pain medication if needed. Nose spray decongestants (Afrin, Kevin-Synephrine) and oral decongestants may be needed to reduce congestion and drainage. Rarely the sinus must be irrigated to remove the infected material. Sinusitis can lead to serious complications by spreading to other areas such as the eye or brain. Please call your doctor or return here right away if you have any of the following more serious symptoms: - Unusual swelling around the eye or trouble seeing. - Increasing pain, severe headache, or toothache. - Nausea, vomiting, or unusual drowsiness.Prescriptions ordered this encounter Disp Refills Start End AMOXICILLIN 875 MG-POTASSIUM CLAVULA* 20 t* 0 02/14/2017 02/24/2017 Route: ORAL Sig: Take 1 tablet by mouth twice daily for 10 days. Status:Closed by KAYLEEN SHI PA-C on 02/14/17 [facility] PROGRESSon 02-14-2017 PROGRESS HNO ID: [id number] thor: Kayleen Mcelroy (Simon) AthyService: (none)Author Type: Physician AssistantType: Progress NotesFiled: 02/14/2017 1:00 PMNote Text:HPI Comments: Pt presents with sinus pain and congestion for 4 days. Notemp taken at home, has had the chills. He has had cough. Bringing up somephlegm, greyish color. Former smoker quit ten years ago. No wheezing. Pthas tried Sudafed otc which provided no relief. No vomiting or diarrhea.No chest pain or shortness of breath.Patient is a 66 year old male presenting with cough and congestion.CoughAssociated symptoms include chills. Pertinent negatives include no chestpain, no ear pain, no sore throat, no myalgias, no shortness of breath andno wheezing.Nasal CongestionAssociated symptoms include chills, congestion and coughing. Pertinentnegatives include no ear pain, shortness of breath or sore throat.PAST MEDICAL HISTORYDiagnosis Date- Allergy, unspecified not elsewhere classified 03/31/2005- Benign neoplasm of colon- Chest pain, unspecified 03/31/2005- Esophageal reflux 03/31/2005- Other voice and resonance disorders 03/31/2005- Pure hypercholesterolemia 03/31/2005- Unspecified asthma(493.90) 03/31/2005- Unspecified cardiovascular disease 03/31/2005- Unspecified essential hypertension 03/31/2005- Unspecified transient cerebral ischemia 04/08/05Current Outpatient Prescriptions:Disulfiram 500 mg tab Disp: Rfl:clopidogrel (PLAVIX) 75 mg tablet Disp: Rfl:hyoscyamine sublingual (LEVSIN/SL) 0.125 mg subl Take 1 tablet by mouthtwice daily before meals. Disp: 60 tablet Rfl: 2Dexlansoprazole (DEXILANT) 60 mg CpDM Take by mouth. Disp: Rfl:simvastatin(ZOCOR 40 MG TAB) Take one(1) tablet two(2) times daily. Disp:30 Rfl: 11isosorbide mononitrate(IMDUR 30 MG 24 HR TAB) 1/2 tab a day Disp: 0 Rfl: 0omega-3 fatty acids(FISH OIL 500 MG CAP) Take one(1) capsule daily. Disp:Rfl: 1DCXBASRGDVVIR-VPNGXHEXRYPZK-XEFYU ORALPHENAZONE 325 MG-65 MG-100 MG ORALCAP as needed for migraines Disp: Rfl: 0zonisamide(ZONEGRAN 100 MG CAP) once daily Disp: Rfl: 0nitroglycerin(NITROSTAT 0.4 MG SUBLINGUAL TAB) Place one(1) tablet ontongue as needed for chest pain. Or cerebral symptoms Disp: 25 Rfl: 1metoprolol succinate(TOPROL XL 25 MG 24 HR TAB) Take one(1) tablet daily.Disp: 30 Rfl: 11CENTRUM SILVER TAB Take one(1) tablet daily. Disp: Rfl: 0FOLIC ACID 400 MCG ORAL TAB Take one(1) tablet daily. Disp: Rfl: 0amoxicillin-clavulanic acid (AUGMENTIN) 875-125 mg per tablet Take 1tablet by mouth twice daily for 10 days. Disp: 20 tablet Rfl: 0No current facility-administered medications for this visit.PAST SURGICAL HISTORY01/26/1980: [id number]/25/05: COLONOSCOP W/ OR W/O [facility] SPEC Comment: Fgptwoapecb67/1/2013: COLONOSCOP W/ OR W/O [facility] SPEC Comment: Colonoscopy09/01/2005: CYSTO.PANENDO Comment: Cystoscopy, laser photovaporization of the prostate09/11/2001: LEFT HEART CATH,PERCUTANEOUS Comment: Cardiac cath, L heart01/2005: OP BRONCHOS DIAG, W/WO WASHING Comment: [id number]: PAST SURGICAL HISTORY OF Comment: cardiac stentNo date: REMOVAL OF TONSILS,<12 Y/O Comment: [id number]: REPAIR ING HERNIA,5+Y/O,REDUCIBL Comment: Hernia repair, inguinal RIGHTFAMILY HISTORY Cancer Father Comment: liver Heart MotherSocial HistorySubstance Use Topics- Smoking status: Former Smoker Packs/day: 1.50 Years: 20.00 Types: Cigarettes Quit date: 08/15/2007- Smokeless tobacco: Not on file- Alcohol use Yes Comment: hx alcoholismBP 109/72 Pulse 88 Temp 36.5 ?C (97.7 ?F) (Tympanic) Resp 18 Wt78.5 kg (173 lb)Review of SystemsConstitutional: Positive for chills. Negative for fever.HENT: Positive for congestion. Negative for ear pain and sore throat.Respiratory: Positive for cough and sputum production. Negative forhemoptysis, shortness of breath and wheezing.Cardiovascular: Negative for chest pain.Gastrointestinal: Negative for heartburn, nausea and vomiting.Genitourinary: Negative for dysuria and urgency.Musculoskeletal: Negative for myalgias.All other systems reviewed and are negative.Physical ExamConstitutional: He is well-developed, well-nourished, and in no distress.HENT:Head: Normocephalic and atraumatic.Right Ear: External ear normal.Left Ear: External ear normal.Nose: Nose normal.Mouth/Throat: Oropharynx is clear and moist. No oropharyngeal exudate.Eyes: Conjunctivae are normal. Pupils are equal, round, and reactive tolight.Neck: Neck supple.Cardiovascular: Normal rate, regular rhythm and normal heart sounds.Pulmonary/Chest: Effort normal and breath sounds normal. No respiratorydistress. He has no wheezes.Lymphadenopathy: He has no cervical adenopathy.ASSESSMENT/PLAN:1. Acute non-recurrent maxillary sinusitis - ICD9: 461.0, ICD10: J01.00- Will begin treatment with Augmentin 875 mg PO BID for 10 days- Supportive care with plenty of fluids, rest, and analgesia prn.- Follow up in one week if symptoms persist or worsen.Kayleen Shi PA-C [facility] Encounters Encounter Date Encounter Type Care Provider Facility Start: 11-10-2020 End: 11-10-2020 Patient encounter procedure [facility] Start: 10-20-2020 End: 10-20-2020 Patient encounter procedure [facility] Start: 11-24-2017 End: 11-25-2017 Ambulatory [facility] Start: 02-14-2017 End: 02-18-2017 Ambulatory DIMITRY [facility] Summary Purpose Family History No Family History Records FoundNo Family History Records Found Advance Directives No Advanced Directives Records FoundNo Advanced Directives Records Found Additional Source Comments (unrecognized sect ion and content) No Status Records FoundNo Status Records Found INFORMATION SOURCE (unrecogn ized section and content) DATE CREATED AUTHOR 02/02/2018 [facility] DATE CREATED AUTHOR AUTHOR'S ORGANIZ ATION 11/19/2020 [facility] FOR RECORDS PERTAINING TO PATIENTS WHO [...] BE BASED ON THE PRIMARY CLINICAL RECORDS. [facility] [employer] [facility] provides no warranty or guarantee of the accuracy or completeness of information in this document.
[2024-06-18 17:53] LABS: Absolute Lymphocyte Count 1.55 X10^3/uL (0.83-4.51); Absolute Neutrophil Count 5.2 X10^3/uL (2.0-7.7); Basophil# 0.03 X10^3/uL; Basophil% 0.4 % (0-1); Eosinophil# 0.18 X10^3/uL; Eosinophils% 2.4 % (0-5); Hematocrit 42.5 % (40-54); Hemoglobin 13.5 g/dL (13.0-16.5); Lymphocyte # 1.55 X10^3/ul (0.83-4.51); Lymphocyte % 20.9 % (19-41); Mean Corp Hgb Conc 31.8 g/dL (32-36); Mean Corpuscular Hgb 31.3 pg (27.0-32.0); Mean Corpuscular Volume 98.4 fL (80-94); Mean Platelet Vol. 9.9 fl (6.2-12.0); Monocyte# 0.42 X10^3/uL; Monocyte% 5.7 % (0-10); NRBC Flagged by Analyzer 0 % (0-5); Neutrophil # 5.18 X10^3/uL (2.7-7.7); Neutrophil % 70.1 % (47-70); Platelet Count 344 K/mm3 (150-450); RBC Distribution Width CV 13.3 % (11.6-14.6); Red Blood Count 4.32 M/mm3 (4.6-6.2); White Blood Count 7.4 K/mm3 (4.4-11.0)
[2024-06-18 19:05] LABS: ALB/GLOB Ratio 0.8 RATIO (0.9-2.4); AST(SGOT) 17 U/L (15-37); Alanine Aminotransfer ALT/SGPT 26 U/L (16-61); Albumin, Serum 3.2 g/dL (3.2-5.0); Alkaline Phosphatase 99 U/L (45-117); Anion Gap 6 (5-15); BUN 6 mg/dL (7-18); BUN/Creat Ratio 6.7 RATIO (10-20); Calcium,Total 9.3 mg/dL (8.5-10.1); Chloride 105 mmol/L (98-107); Cholesterol 137 mg/dL (200); Creatinine, Serum 0.89 mg/dL (0.70-1.30); EST Glomerular Filtration Rate 89 mL/min (>60); Est Glom Filt Rate - Afr Amer 107 mL/min (>60); Glucose 109 mg/dL (74-106); High Density Lipoprotein 55 mg/dL; PSA,Total - Annual Screen 5.32 ng/mL (0.00-4.00); Potassium 4.2 mmol/L (3.5-5.1); Protein, Total 7.2 g/dL (6.4-8.2); Sodium Level 139 mmol/L (136-145); Triglycerides 95 mg/dL; Very Low Density Lipoprotein 19 mg/dL (5-40)
== END | disposition home or self-care (01) ==
LOC: BFHLAB 13:47
PROVIDERS: PCP Nurse Practitioner Family; Referring Provider Nurse Practitioner Family; Visit Provider Nurse Practitioner Family
DX: E78.5 Hyperlipidemia, unspecified (principal); I10 Essential (primary) hypertension; Z12.5 Encounter for screening for malignant neoplasm of prostate
CPT/HCPCS: 36415; 80053; 80061; 84153; 85025; G0103

== ENCOUNTER → 2024-10-31 | Outpatient (CLI) | payer MEDICARE, SELFPAY ==
--- NOTE | 2024-10-31 14:29 | RAD_ITS ---
PROCEDURE: FOOT MIN 3 VIEWS 10/31/2024 REASON FOR EXAM: RULE OUT FOOT FRACTURE TECHNIQUE: 3 view(s) of the right foot COMPARISON: None. RAD/Foot min 3 Views IMPRESSION: Generalized osteopenia is present. This reduces sensitivity for fractures. Omoq-lc-vdkxepra degenerative changes are seen throughout the toes. Deformity of the distal shaft of the right 5th metatarsal bone is seen, with ad jacent mature appearing callus formation, most probably representing a healed or healing fracture. Mild degenerative changes are seen throughout the midfoot and hindfoot. Mature appearing partial calcification of the plantar fascia is seen at the lev el of the distal calcaneus. A large inferior calcaneal spur is seen. Normal contour of the Achilles tendon is noted. No ankle joint effusion is seen. No acute fracture or dislocation is evident. If clinical concern persists, short-term follow-up imaging may be obtained to r ule out a currently occult fracture. Reading Location: [id number]
== END | disposition home or self-care (01) ==
LOC: MTRAD 14:28
PROVIDERS: PCP Nurse Practitioner Family; Referring Provider Nurse Practitioner Family; Visit Provider Nurse Practitioner Family
DX: M79.674 Pain in right toe(s) (principal)
CPT/HCPCS: 73630

== ENCOUNTER → 2025-05-14 | Outpatient (CLI) | payer MEDICARE, SELFPAY ==
--- NOTE | 2025-05-14 14:42 | CT_ITS ---
PROCEDURE: LOW DOSE CT LUNG SCREENING 05/14/2025 REASON FOR EXAM: LUNG CANCER SCREENING Former smoker, quit 4-5 years ago. 1-1/2 pack per day smoker times 20 years TECHNIQUE: Procedure Code: CTLUNGSCREEN Modality: CT Procedure: LOW DOSE CT LUNG SCREENING Coronal and Sagittal reconstruction series were provided. One or more dose reduction techniques were used (e.g., Automated exposure control, adjustment of the mA and/or kV according to patient size, use of iterative reconstruction technique). REFERENCE LINK: [employer] Lung-RADS RADIATION DOSE SUMMARY: CTDlvol: 4.02 mGy DLP: 138.43 mGycm COMPARISON: None FINDINGS: Lung windows show underlying emphysema with emphysematous blebs throughout both lung duarte, interstitial scarring/honeycombing in the periphery of both lung duarte, and nonspecific pleural thickening. There is no organized infiltrate, or effusion, no suspicious noncalcified mass or nodule. Soft tissue windows show a normal-appearing thyroid gland. No suspicious axillary, mediastinal or perihilar adenopathy. The thoracic aorta tapers normally. There are calcified coronary vessels. Limited cuts through the upper abdomen do not show a suspicious abnormality. Bony structures show degenerative change CT/Low Dose CT Lung Screening IMPRESSION: Underlying emphysema with chronic interstitial fibrotic changes in both lung fi elds, no superimposed process or suspicious noncalcified mass or nodule Coronary artery calcification (CAC) is is present Lung-RADS Category: 2 BENIGN (BASED ON IMAGING FEATURES OR INDOLENT BEHAVIOR). RECOMMEND 12-MONTH SCREENING LDCT. Other Significant Findings: Reading Location: [id number]
== END | disposition home or self-care (01) ==
LOC: CT 14:41
PROVIDERS: PCP Nurse Practitioner Family; Referring Provider Nurse Practitioner Family; Visit Provider Nurse Practitioner Family
DX: Z12.2 Encounter for screening for malignant neoplasm of respiratory organs (principal); Z87.891 Personal history of nicotine dependence
CPT/HCPCS: 71271

== ENCOUNTER 2025-06-28 19:14 | Emergency (ER) | payer MEDICARE, SELFPAY ==
[2025-06-28 19:15] VITALS: BP 188/74; PULSE 82; RESP 18; TEMP 36.7; O2SAT 97; BMI 32.3
[2025-06-28 19:30] VITALS: BP 161/70; PULSE 77; RESP 18; O2SAT 97
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
[2025-06-28] MEDS: fentaNYL 100 MCG/2 ML Ampul 50 MCG IV (19:49)
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
--- OUTSIDE RECORDS SUMMARY | 2025-06-28 19:57 | XMS RPT_ITS | CCD ---
Author Organization [facility] Care Team Providers Care Mixer Slagman Name Role Phone DIMITRY FRYE Unavailable Unavailable MIRIZACH BLAKE Attending Unavailable MIRIZACH ISLAS Primary Care Unavailable MIRIZACH Admitting Unavailable MIRIZACH Attending Unavailable MIRIZACH BLAKE Primary Care Unavailable MIRIZACH BLAKE Admitting Unavailable Dr. Luis Antonio Reed Primary Care Provider Dr. Luis Antonio Reed Referring Provider Paty CALCINE FURNACE LOADER, CALCINE FURNACE LOADER-C Tari Attending Provider [phone] Evangelist, CALC[employer] FURNACE LOADER-C Nataliya Primary Care Provider Dr. Andrew Albarado Attending Provider Evangelist [employer] F[employer]NACE LOADER-C, Nataliya Primary Care Provider Evangelist [employer] FURNACE LOADER-C, Nataliya Attending Provider [phone] Evangelist [employer] F[employer]NACE LOADER-C, Nataliya Referring Provider [phone] Evangelist [employer]CINE FURNACE LOADER-C, Nataliya Primary Care Physician Evangelist [employer] F[employer]NACE LOADER-C, Nataliya Referring Provider [phone] Paty CALCINE FURNACE LOADER-C, Tari Attending Physician Paty [employer] F[employer]NACE LOADER-C, Tari Referring Provider [phone] Evangelist, Nataliya Referring Unavailable Evangelist, Nataliya Attending Unavailable Evangelist, Nataliya Primary Care Unavailable Evangelist, Nataliya Referring Unavailable Evangelist, Nataliya Attending Unavailable Evangelist, Nataliya Primary Care Unavailable Evangelist, Nataliya Primary Care Unavailable Paty, Tari Referring Unavailable Paty, Tari Attending Unavailable Evangelist, Nataliya Primary Care Unavailable Evangelist, Nataliya Referring Unavailable Sergio Khoury Attending Unavailable Nataliya Blanca Primary Care Unavailable Tari Newman Referring Unavailable Tari Newman Attending Unavailable Paty CALCINE FURNACE LOADERTari Flores Referring Provider [phone] Allergies Allergy Classification Reported Allergen(s) Allergy Type Date of Onset Reaction(s) Facility (12 sources) morphine; Translations: [MORPHINE] Drug Allergy 0 AOF, Vomiting [facility] Repository (1 source) OTHER; Translations: [OTHER] Propensity to adverse reactions (disorder) 6 [facility] Repository (10 sources) Codeine Drug Allergy 9 Unknown [facility] Comment on above: Pt does not remember if or when he has ever had a reaction to codeine. (10 sources) Latex Propensity to adverse reactions 9 Other [facility] Comment on above: LATEX FUMES CAUSE SE KHADRA HEADACHE, (1 source) Codeine Drug Allergy 5 [facility] Repository (1 source) Latex Drug allergy (disorder) 5 [facility] Medications Current Medications Medication Drug Class(es) Dates Sig (Normalized) Sig (Original) [id number] actuat albuterol 0.09 mg/actuat metered dose inhaler (9 sources) beta2-Adrenergic Agonist Start: 01-03-2019 Albuterol Sulfate 90 mcg/actuation HFA aerosol inhaler Active 2 NMA INHALATION EVERY 6 HOURS as needed January 03, 2019 12:00am Complies with drug therapy Start: 01-03-2019 take 1 puff(s) by in halation every six hours Albuterol Sulfate Active 2 PUFF INHALATION EVERY 6 HOURS January 02, 2019 11:00pm Albuterol Sulfate 90 mcg/actuation HFA aerosol inhaler (1 source) Start: 01-03-2019 Albuterol Sulfate 90 mcg/actuation HFA aerosol inhaler Active 2 NMA INHALATION EVERY 6 HOURS as needed January 03, 2019 12:00am aspirin 81 mg chewable tablet (10 sources) Platelet Aggregation Inhibitor, Nonsteroidal Anti-inflammatory Drug Start: 04-14-2015 take 1 tablet by mouth once daily Aspirin 81 MG tablet,chewable Active 81 mg PO DAILY@0800 April 14, 2015 12:00am Complies with drug therapy Zveillhj-Jng-Xj-Lyco pen-Lutein (7 sources) Start: 11-06-2014 Iwxlbjxn-Mzr-Tw-Lyc open-Lutein Active 1 EACH PO DAILY November 05, 2014 11:00pm Peeoodew-Wxl-Ko-Lyco pen-Lutein 1 EACH tablet (3 sources) Start: 11-06-2014 Sfelsbnb-Crg-En-Lyc open-Lutein 1 EACH tablet Active 1 NMA PO DAILY November 06, 2014 12:00am Complies with drug therapy Start: 11-06-2014 Start: 11-06-2014 Ungjrusr-Aqz-F m-Mfvundg-Evrqsn 1 EACH tablet Active 1 NMA PO DAILY November 06, 2014 12:00am [place]-3 Fatty Acids-Fish Oil (7 sources) Start: 11-06-2014 [place]-3 Fatty Acids-Fish Oil Active 1 EACH PO DAILY November 05, 2014 11:00pm Completed/Discontinued Medications Medication Drug Class(es) Dates Sig (Normalized) Sig (Original) amoxicillin 875 mg / clavulanate 125 mg oral tablet (10 sources) Penicillin-class Antibacterial Start: 10-25-2018 End: 01-03-2019 take 1 tablet by mouth every twelve hours Amoxicillin-Pot Clavulanate 875 MG tablet Discontinued 875 mg PO Q12H 20 0 October 25, 2018 12:00am January 03, 2019 3:22pm atorvastatin 40 mg oral tablet (20 sources) HMG-CoA Reductase Inhibitor Start: 08-13-2016 End: 04-10-2019 take 1 tablet by mouth at bedtime Atorvastatin 40 mg tablet Discontinued 40 mg PO AT BEDTIME 90 3 January 03, 2019 3:28pm April 10, 2019 11:29am clopidogrel 75 mg oral tablet (20 sources) P2Y12 Platelet Inhibitor Start: 10-11-2018 End: 12-06-2024 take 1 tablet by mouth once daily Clopidogrel 75 mg tablet Discontinued 75 mg PO DAILY 90 3 October 28, 2023 12:09pm December 06, 2024 7:56am 24 hr metoprolol succinate 25 mg extended release oral tablet (20 sources) beta-Adrenergic Ivania Start: 11-06-2014 End: 12-21-2021 take 1 tablet by mouth once daily Metoprolol Succinate 25 mg tablet extended release 24 hr Discontinued 25 mg PO daily 90 3 December 05, 2020 10:06am December 21, 2021 9:52am [place]-3 Fatty Acids-Fish Oil 1 EACH capsule (3 sources) Start: 11-06-2014 End: 05-14-2025 [place]-3 Fatty Acids-Fish Oil 1 EACH capsule Discontinued 1 NMA PO DAILY November 06, 2014 12:00am May 14, 2025 2:19pm Start: 11-06-2014 [place]-3 Fatty Acids-Fish Oil 1 EACH capsule Active 1 NMA PO DAILY November 06, 2014 12:00am pantoprazole 40 mg delayed release oral tablet (20 sources) Proton Pump Inhibitor Start: 08-30-2015 End: 12-06-2024 take 1 tablet by mouth once daily Pantoprazole 40 mg tablet,delayed release (DR/EC) Discontinued 40 mg PO DAILY 90 3 October 28, 2023 12:09pm December 06, 2024 7:56am Problems Active Problems Problem Classification Problem Date Documented Date Episodic/Chronic Conduction disorders (10 sources) Right bundle branch block; Translations: [Unspecified right bundle-branch block] 01-03-2019 Chronic Coronary atherosclerosis and other heart disease (10 sources) Coronary atherosclerosis; Translations: [Atherosclerotic heart disease of [place] coronary artery without angina pectoris] 01-02-2019 Chronic Comment on above: PCI-CHUCKIE-RPL w/ 3.0 x 13 mm Cypher 01/12/2007 Disorders of lipid metabolism (11 sources) Hyperlipidemia; Translations: [Hyperlipidemia, unspecified] Onset: 07-10-2024 01-02-2019 Chronic Essential hypertension (10 sources) Essential hypertension; Translations: [Essential (primary) hypertension] 01-02-2019 Chronic Headache; including migraine (2 sources) Status migrainosus; Translations: [Migraine, unspecified, not intractable, with status migrainosus] 01-02-2019 Chronic Other and ill-defined cerebrovascular disease (10 sources) Cerebrovascular disease; Translations: [Cerebrovascular disease, unspecified] 01-02-2019 Chronic Other hereditary and degenerative nervous system conditions (10 sources) Akathisia; Translations: [Drug induced akathisia] 08-31-2015 Chronic Other screening for suspected conditions (not mental disorders or infectious disease) (20 sources) Thallium stress test abnormal; Translations: [Abnormal result of other cardiovascular function study] Onset: 06-05-2025 Episodic Screening and history of mental health and substance abuse codes (13 sources) Tobacco use and exposure - finding; Translations: [Personal history of nicotine dependence] Onset: 06-05-2025 Episodic Substance-related disorders (10 sources) Nicotine dependence; Translations: [Nicotine dependence, unspecified, uncomplicated] 07-27-2022 Chronic Past or Other Problems Problem Classification Problem Date Documented Da te Episodic/Chronic Other connective tissue disease (1 source) Pain in right toe(s); Translations: [Pain in right toe(s)] Onset: 11-09-2024 Episodic Unclassified (8 sources) Migraine without mention of intractable migraine with status migrainosus 01-02-2019 Results Test Name Value Interpretation Reference Range Facility Low Dose CT Lung Screeningon 05-14-[address] Lung Screening [facility] Imaging Services [address] [place] [id number] Lung Screening MR#: [id number] Acct: [id number] Name: LÁZRAO SMITH Rep #: [id number] : 1950 M 74 From: Fabricio Muir MD PCP: HEIDE Wilson Status: [facility] CL Study: Low Dose CT Lung Screening Date of Exam: 05/14 Exam# [id number] Ordering Dr: Tari Newman NP CALCINE FURNACE LOADER -C PROCEDURE: LOW DOSE CT LUNG SCREENING 05/14/2025 REASON FOR EXAM: LUNG CANCER SCREENING Former smoker, quit 4-5 years ago. 1-1/2 pack per day smoker times 20 years TECHNIQUE: Procedure Code: CTLUNGSCREEN Modality: CT Procedure: LOW DOSE CT LUNG SCREENING Coronal and Sagittal reconstruction series were provided. One or more dose reduction techniques were used (e.g., Automated exposure control, adjustment of the mA and/or kV according to patient size, use of iterative reconstruction technique). REFERENCE LINK: [facility] Lung-RADS RADIATION DOSE SUMMARY: CTDlvol: 4.02 mGy DLP: 138.43 mGycm COMPARISON: None FINDINGS: Lung windows show underlying emphysema with emphysematous blebs throughout both lung duarte, interstitial scarring/honeycombing in the periphery of both lung duarte, and nonspecific pleural thickening. There is no organized infiltrate, or effusion, no suspicious noncalcified mass or nodule. Soft tissue windows show a normal-appearing thyroid gland. No suspicious axillary, mediastinal or perihilar adenopathy. The thoracic aorta tapers normally. There are calcified coronary vessels. Limited cuts through the upper abdomen do not show a suspicious abnormality. Bony structures show degenerative change CT/Low Dose CT Lung Screening IMPRESSION: Underlying emphysema with chronic interstitial fibrotic changes in both lung duarte, no superimposed process or suspicious noncalcified mass or nodule Coronary artery calcification (CAC) is is present Lung-RADS Category: 2 BENIGN (BASED ON IMAGING FEATURES OR INDOLENT BEHAVIOR). RECOMMEND 12-MONTH SCREENING LDCT. Other Significant Findings: Reading Location: [id number] CC: HEIDE Blanca; HEIDE Newman Template Maker: Signed [facility] Oncology Visit Reporton 04-17 Oncology Visit Report [facility] [address] [place] [id number] OFFICE VISIT Date of Service: 05/14/25 1416 MR#: [id number] Acct: [id number] Name: LÁZARO SMITH Rep #: [id number] : 1950 From: Tari Flores Age/Sex: 74/M Location: [facility] [place] Status: Signed HPI HPI Reviewed eligibility criteria: 74 year old M with a 20 pack year smoking history (1/2-1 PPD x 30 years) . Smoking Status: Former smoker (quit 09/2021) Decision Making Engaged in shared decision making visit utilizing a visual aid. Discussed the risks and benefits of lung cancer screening including the total radiation exposure, false positive rate, over diagnosis and potential need for follow-up diagnostic testing all associated with low-dose chest CT. Comorbidities RBBB, CAD, HTN, Hyperlipidemia ROS Const Denies anorexia, Denies fatigue, Denies headache(s), Denies poor appetite and Denies weight loss ENT Denies headache(s) Card Denies chest pain, Reports dyspnea on exertion (improved after quitting tobacco, requires albuterol rescue 1-2 times per wk) and Denies palpitations Resp Denies cough, Reports dyspnea on exertion (improved after quitting tobacco, requires albuterol rescue 1-2 times per wk), Denies hemoptysis and Denies wheezing GI Reports system reviewed and no additional complaints, except as documented Reports system reviewed and no additional complaints, except as documented Musc Reports system reviewed and no additional complaints, except as documented Skin/Breast Reports system reviewed and no additional complaints, except as documented Neuro Yes system reviewed and no additional complaints, except as documented and No headache(s) Psych Reports system reviewed and no additional complaints, except as documented Endo Reports system reviewed and no additional complaints, except as documented, Denies fatigue and Denies palpitations Lio/Lymph Reports system reviewed and no additional complaints, except as documented Aller/Immun Denies wheezing Exam Const Orientation: alert and oriented x3 HENMT Head: normocephalic and atraumatic Neck Neck: supple and no lymphadenopathy noted Resp Effort Inspection: normal respiratory effort Auscultation: Bilateral: Clear to Auscultation and Diminished Lung Sounds Cardio Rate: regular rate Rhythm: regular rhythm Heart Sounds: S1 normal and S2 normal Psych Affect: normal affect Speech and Movement: speech and movement normal Results Results May 142024 Low Dose CT Lung Screening IMPRESSION: Underlying emphysema with chronic interstitial fibrotic changes in both lung duarte, no superimposed process or suspicious noncalcified mass or nodule Coronary artery calcification (CAC) is is present Lung-RADS Category: 2 BENIGN (BASED ON IMAGING FEATURES OR INDOLENT BEHAVIOR). RECOMMEND 12-MONTH SCREENING LDCT. Intake Vital Signs 01/03/19 12:12 05/14/25 14:20 Height 5 ft 8 in 5 ft 8 in Weight: 214 lb 3 oz BMI 32.5 BP 127/74 H Blood Pressure Location Lt brachial Position Sitting Respiration 18 Pulse 63 Pulse Source Monitor Temp 98.3 F Temp Source Temporal Pulse Oximetry (%) 94 Oxygen Delivery Method room air Intake Visit Reasons: Lung Cancer Screening Allergies codeine Allergy (Verified 05/14/25 14:19) Unknown latex Adverse Reaction (Verified 05/14/25 14:19) Other morphine Adverse Reaction (Verified 05/14/25 14:19) Vomiting Medications ???Medication ???Instructions ???Recorded ???Confirmed ???Type twfimwws-ypd-vqrem acid 0.4 1 ea PO DAILY 11/06/14 05/14/25 Hi story mg-lycopene 300 mcg-lutein 250 mcg tablet aspirin 81 mg chewable tablet 81 mg PO DAILY@0800 04/14/1505/14 History albuterol sulfate 90 mcg/actuation 2 puff inhalation Q6H PRN 05/14/25 History aerosol inhaler atorvastatin 40 mg tablet 40 mg PO QHS #90 tabs 04/10/19 Rx metoprolol succinate 25 mg 25 mg PO QDAY #90 tabs 12/21/21 Rx tablet,extended release 24 hr clopidogrel 75 mg tablet 75 mg PO DAILY #90 tabs 12/06/24 0 05/14/25 Rx pantoprazole 40 mg tablet,delayed 40 mg PO DAILY #90 tabs 12/06/24 05/14/25 Rx release Have you fallen in the past year?: No PFSH Medical History History of tobacco use Encounter for screening for malignant neoplasm of lung Right bundle branch block (RBBB) Nicotine dependence Migraine BPH (benign prostatic hyperplasia) GERD (gastroesophageal reflux disease) Atherosclerosis of coronary artery of [place] heart without angina pectoris Essential (primary) hypertension Hyperlipidemia Surgical History History of left heart catheterization (04/14/15) His (more content not included)... [facility] Foot min 3 Viewson Foot min 3 Views [facility] Imaging Services [address] [place] [address] Foot min 3 Views MR#: [id number] Acct: [id number] Name: LÁZARO SMITH Gordo Rep #: [id number] : 1950 M 74 From: Garcia Ramos PCP: HEIDE Wilson Status: REG CLI Study: Foot min 3 Views Date of Exam: 10/31/24 Exam# [id number] Ordering Dr: Nataliya Blanca PROCEDURE: FOOT MIN 3 VIEWS 10/31/2024 REASON FOR EXAM: RULE OUT FOOT FRACTURE TECHNIQUE: 3 view(s) of the right foot COMPARISON: None. RAD/Foot min 3 Views IMPRESSION: Generalized osteopenia is present. This reduces sensitivity for fractures. Uozq-hc-oownqksj degenerative changes are seen throughout the toes. Deformity of the distal shaft of the right 5th metatarsal bone is seen, with adjacent mature appearing callus formation, most probably representing a healed or healing fracture. Mild degenerative changes are seen throughout the midfoot and hindfoot. Mature appearing partial calcification of the plantar fascia is seen at the level of the distal calcaneus. A large inferior calcaneal spur is seen. Normal contour of the Achilles tendon is noted. No ankle joint effusion is seen. No acute fracture or dislocation is evident. If clinical concern persists, short-term follow-up imaging may be obtained to rule out a currently occult fracture. Reading Location: [id number] CC: HEIDE Blanca Template Maker: Signed [facility] CBC W/Diff, Automatedon 11-0 Absolute Lymph 1.55 X10 3/uL Normal 0.83-4.51 [facility] Comment on above: Performed By: #### L 501.9910, L100.0100, L500.4050, L500.4100 #### [facility] [address] [place], [address] Absolute Neut 5.2 X10 3/uL Normal 2.0-7.7 [facility] Comment on above: Performed By: #### L 501.9910, L100.0100, L500.4050, L500.4100 #### [facility] [address] [place], [address] Basophils/100 WBC (Bld) 0.4 % Normal 0-1 [facility] Comment on above: Performed By: #### L 501.9910, L100.0100, L500.4050, L500.4100 #### [facility] [address] [place], [address] Eosinophils/100 WBC (Bld) 2.4 % Normal 0-5 [facility] Comment on above: Performed By: #### L 501.9910, L100.0100, L500.4050, L500.4100 #### [facility] [address] [place], [address] Erythrocyte distribution width (RBC) [Ratio] 13.3 % Normal 11.6-14.6 [facility] Comment on above: Performed By: #### L 501.9910, L100.0100, L500.4050, L500.4100 #### [facility] [address] [place], [address] Hematocrit (Bld) [Volume fraction] 42.5 % Normal 40-54 [facility] Comment on above: Performed By: #### L 501.9910, L100.0100, L500.4050, L500.4100 #### [facility] [address] [place], [address] Hemoglobin (Bld) [Mass/Vol] 13.5 g/dL Normal 13.0-16.5 [facility] Comment on above: Performed By: #### L 501.9910, L100.0100, L500.4050, L500.4100 #### [facility] [address] [place], [address] IG% 0.500 Normal 0.0-0.9 [facility] Comment on above: Result Comment: IG% - Immature Granulocytes (promyelocytes, myelocytes and metamyelocytes) > 1% indicates that a LEFT SHIFT is Present. Performed By: #### L 501.9910, L100.0100, L500.4050, L500.4100 #### [facility] [address] [place], [address] Lymphocytes/100 WBC (Bld) 20.9 % Normal 19-41 [facility] Comment on above: Performed By: #### L 501.9910, L100.0100, L500.4050, L500.4100 #### [facility] [address] [place], [address] MCH (RBC) [Entitic mass] 31.3 pg Normal 27.0-32.0 [facility] Comment on above: Performed By: #### L 501.9910, L100.0100, L500.4050, L500.4100 #### [facility] [address] [place], [address] MCHC (RBC) [Mass/Vol] 31.8 g/dL Low 32-36 [facility] Comment on above: Performed By: #### L 501.9910, L100.0100, L500.4050, L500.4100 #### [facility] [address] [place], [address] MCV (RBC) [Entitic vol] 98.4 fL High 80-94 [facility] Comment on above: Performed By: #### L 501.9910, L100.0100, L500.4050, L500.4100 #### [facility] [address] [place], [address] Monocytes/100 WBC (Bld) 5.7 % Normal 0-10 [facility] Comment on above: Performed By: #### L 501.9910, L100.0100, L500.4050, L500.4100 #### [facility] [address] [place], [address] Neutrophils/100 WBC (Bld) 70.1 % High 47-70 [facility] Comment on above: Performed By: #### L 501.9910, L100.0100, L500.4050, L500.4100 #### [facility] [address] [place], [address] Nucleated RBC (Bld) [#/Vol] 0 10*3/uL Normal 0-5 [facility] Comment on above: Performed By: #### L 501.9910, L100.0100, L500.4050, L500.4100 #### [facility] [address] [place], [address] Platelet mean volume (Bld) [Entitic vol] 9.9 fL Normal 6.2-12.0 [facility] Comment on above: Performed By: #### L 501.9910, L100.0100, L500.4050, L500.4100 #### [facility] [address] [place], [address] Platelets (Bld) [#/Vol] 344 10*3/uL Normal 150-450 [facility] Comment on above: Performed By: #### L 501.9910, L100.0100, L500.4050, L500.4100 #### [facility] [address] [place], [address] RBC (Bld) [#/Vol] 4.32 10*6/uL Low 4.6-6.2 [facility] Comment on above: Performed By: #### L 501.9910, L100.0100, L500.4050, L500.4100 #### [facility] [address] [place], [address] RDW SD 49.0 fl High 35.1-43.9 [facility] Comment on above: Performed By: #### L 501.9910, L100.0100, L500.4050, L500.4100 #### [facility] [address] [place], [address] WBC (Bld) [#/Vol] 7.4 10*3/uL Normal 4.4-11.0 [facility] Comment on above: Performed By: #### L 501.9910, L100.0100, L500.4050, L500.4100 #### [facility] [address] [place], [address] Comprehensive Metabolic Prof ilon 06-18-2024 Albumin [Mass/Vol] 3.2 g/dL Normal 3.2-5.0 [facility] Comment on above: Performed By: #### L 501.9910, L100.0100, L500.4050, L500.4100 #### [facility] [address] [place], [address] Albumin/Globulin [Mass ratio] 0.8 {ratio} Low 0.9-2.4 [facility] Comment on above: Performed By: #### L 501.9910, L100.0100, L500.4050, L500.4100 #### [facility] [address] [place], [address] ALK P 99 U/L Normal 45-117 [facility] Comment on above: Performed By: #### L 501.9910, L100.0100, L500.4050, L500.4100 #### [facility] [address] [place], [address] ALT [Catalytic activity/Vol] 26 U/L Normal 16-61 [facility] Comment on above: Performed By: #### L 501.9910, L100.0100, L500.4050, L500.4100 #### [facility] [address] [place], [address] AST [Catalytic activity/Vol] 17 U/L Normal 15-37 [facility] Comment on above: Performed By: #### L 501.9910, L100.0100, L500.4050, L500.4100 #### [facility] [address] [place], [address] Bilirubin [Mass/Vol] 0.40 mg/dL Normal 0.20-1.00 [facility] Comment on above: Result Comment: For patients on eltrombopag therapy, use of Dimension [place] TBIL is not recommended. Performed By: #### L 501.9910, L100.0100, L500.4050, L500.4100 #### [facility] [address] [place], [address] BUN/CRE 6.7 RATIO Low 10-20 [facility] Comment on above: Performed By: #### L 501.9910, L100.0100, L500.4050, L500.4100 #### [facility] [address] [place], [address] CA,Total 9.3 mg/dL Normal 8.5-10.1 [facility] Comment on above: Performed By: #### L 501.9910, L100.0100, L500.4050, L500.4100 #### [facility] [address] [place], [address] Chloride [Moles/Vol] 105 mmol/L Normal 98-107 [facility] Comment on above: Performed By: #### L 501.9910, L100.0100, L500.4050, L500.4100 #### [facility] [address] [place], [address] CO2 [Moles/Vol] 28.0 mmol/L Normal 21.0-32.0 [facility] Comment on above: Performed By: #### L 501.9910, L100.0100, L500.4050, L500.4100 #### [facility] [address] [place], [address] Creatinine [Mass/Vol] 0.89 mg/dL Normal 0.70-1.30 [facility] Comment on above: Result Comment: The validity of the calculated GFR GFRAA in patients over 70 years has not been determined. Clinical correlation is essential. Performed By: #### L 501.9910, L100.0100, L500.4050, L500.4100 #### [facility] [address] [place], [address] EST GFR - AA 107 mL/min Normal >60 [facility] Comment on above: Result Comment: Afri can Citizen Of [place] GFR Calc Performed By: #### L 501.9910, L100.0100, L500.4050, L500.4100 #### [facility] [address] [place], [address] GAP 6 Normal 5-15 [facility] Comment on above: Performed By: #### L 501.9910, L100.0100, L500.4050, L500.4100 #### [facility] [address] [place], [address] GFR/1.73 sq M.predicted among non-blacks MDRD (S/P/Bld) [Vol rate/Area] 89 mL/min/{1.73_m2} Normal >60 [facility] Comment on above: Result Comment: Non- GFR Calc Performed By: #### L 501.9910, L100.0100, L500.4050, L500.4100 #### [facility] [address] [place], [address] Globulin (S) [Mass/Vol] 4.0 g/dL Normal 2.2-4.2 [facility] Comment on above: Performed By: #### L 501.9910, L100.0100, L500.4050, L500.4100 #### [facility] [address] [place], [address] Glucose [Mass/Vol] 109 mg/dL High 74-106 [facility] Comment on above: Result Comment: Fast ing Glucose result from 100 to 125 mg/dL suggests IMPAIRED HOMEOSTASIS per A.D.A. criteria. Performed By: #### L 501.9910, L100.0100, L500.4050, L500.4100 #### [facility] [address] [place], [address] Potassium [Moles/Vol] 4.2 mmol/L Normal 3.5-5.1 [facility] Comment on above: Performed By: #### L 501.9910, L100.0100, L500.4050, L500.4100 #### [facility] [address] [place], [address] Sodium [Moles/Vol] 139 mmol/L Normal 136-145 [facility] Comment on above: Performed By: #### L 501.9910, L100.0100, L500.4050, L500.4100 #### [facility] [address] [place], [address] T PROT 7.2 g/dL Normal 6.4-8.2 [facility] Comment on above: Performed By: #### L 501.9910, L100.0100, L500.4050, L500.4100 #### [facility] [address] [place], [address] Urea nitrogen [Mass/Vol] 6 mg/dL Low 7-18 [facility] Comment on above: Performed By: #### L 501.9910, L100.0100, L500.4050, L500.4100 #### [facility] [address] [place], [address] Lipid Profileon 06-18-2024 Cholesterol [Mass/Vol] 137 mg/dL Normal 200 [facility] Comment on above: Result Comment: <200 mg/dL Desirable 200-240 mg/dL Borderline >240 mg/dL High Risk Performed By: #### L 501.9910, L100.0100, L500.4050, L500.4100 #### [facility] [address] [place], [address] Cholesterol in HDL [Mass/Vol] 55 mg/dL Normal [facility] Comment on above: Result Comment: The drugs N-Acetylcysteine and Metamizole may falsely depress this assay. Reference Range HDL <40 mg/dL Low HDL Cholesterol HDL >or= 60 mg/dL High HDL Cholesterol Performed By: #### L 501.9910, L100.0100, L500.4050, L500.4100 #### [facility] [address] [place], [address] Cholesterol in LDL [Mass/Vol] 63 mg/dL Normal 0-130 [facility] Comment on above: Performed By: #### L 501.9910, L100.0100, L500.4050, L500.4100 #### [facility] [address] [place], [address] Cholesterol in VLDL [Mass/Vol] 19 mg/dL Normal 5-40 [facility] Comment on above: Performed By: #### L 501.9910, L100.0100, L500.4050, L500.4100 #### [facility] [address] [place], [address] Triglyceride [Mass/Vol] 95 mg/dL Normal [facility] Comment on above: Result Comment: The drugs N-Acetylcysteine and Metamizole may falsely depress this assay. Serum Triglycerides Reference Interval Normal <150 mg/dL Borderline high 150 - 199 mg/dL High 200 - 499 mg/dL Very High > or = 500 mg/dL Performed By: #### L 501.9910, L100.0100, L500.4050, L500.4100 #### [facility] [address] [place], [address] PSA,Total - Annual Screenon 06-18-2024 PSA,TOT SCREEN 5.32 ng/mL High 0.00-4.00 [facility] Comment on above: Result Comment: This test was performed using the TPSA assay method for the [employer] system. Values obtained with different assay methods cannot be used interchangably. When changing PSA assays in the course of monitoring a patient, additional sequential testing should be carried out to confirm baseline values. Performed By: #### L 501.9910, L100.0100, L500.4050, L500.4100 #### [facility] [address] [place], [address] Absolute lymphocyte countOrd ered By: Nataliya Blanca on 09-30-2023 Lymphocytes Auto (Unsp spec) [#/Vol] 1.96 10*3/uL 0.83-4.51 [facility] Automated lymphocyte count a s percentage of total leukocytesOrdered By: Nataliya Blanca on 09-30-2023 Lymphocytes/100 WBC Auto (Unsp spec) 20.4 % 19-41 [facility] Basophil percentageOrdered B y: Nataliya Blanca on 09-30-2023 Basophils/100 WBC (Bld) 0.5 % 0-1 [facility] Bilirubin [Mass/Vol] 0.60 mg/dL 0.20-1.00 [facility] Comment on above: For patients on eltr ombopag therapy, use of Dimension [place] TBIL is not recommended. Chloride [Moles/Vol] 102 mmol/L 98-107 [facility] Eosinophils/100 WBC (Bld) 2.9 % 0-5 [facility] Glucose [Mass/Vol] 111 mg/dL 74-106 [facility] Comment on above: Fasting Glucose resu lt from 100 to 125 mg/dL suggests IMPAIRED HOMEOSTASIS per A.D.A. criteria. Hemoglobin (Bld) [Mass/Vol] 13.8 g/dL 13.0-16.5 [facility] Monocytes/100 WBC (Bld) 7.6 % 0-10 [facility] Neutrophils (Bld) [#/Vol] 6.6 10*3/uL 2.0-7.7 [facility] Neutrophils/100 WBC (Bld) 68.3 % 47-70 [facility] Potassium [Moles/Vol] 4.1 mmol/L 3.5-5.1 [facility] Protein [Mass/Vol] 7.6 g/dL 6.4-8.2 [facility] Sodium [Moles/Vol] 136 mmol/L 136-145 [facility] WBC (Bld) [#/Vol] 9.6 10*3/uL 4.4-11.0 [facility] Determination of erythrocyte mean corpuscular volume (MCV)Ordered By: Nataliya Jaygar on 09-30-2023 MCV (RBC) [Entitic vol] 97.8 fL 80-94 [facility] Erythrocyte distribution wid th ratioOrdered By: Belcourt Evangelist on 09-30-2023 Erythrocyte distribution width (RBC) [Ratio] 13.3 % 11.6-14.6 [facility] Erythrocyte distribution wid th standard deviationOrdered By: [facility] on 09-30-2023 Erythrocyte distribution width (RBC) [Entitic vol] 47.9 fL 35.1-43.9 [facility] Hematocrit Auto (Bld) [Volum e fraction]Ordered By: Belcourt Evangelist on 09-30-2023 Hematocrit (Bld) [Volume fraction] 43.9 % 40-54 [facility] Immature granulocytes/100 WB C Auto (Bld)Ordered By: [facility] on 09-30-2023 Immature granulocytes/100 WBC (Bld) 0.300 % 0.0-0.9 [facility] Comment on above: IG% - Immature Granu locytes (promyelocytes, myelocytes and metamyelocytes) > 1% indicates that a LEFT SHIFT is Present. Laboratory - Chemistry and C hemistry - challengeOrdered By: [facility] on 09-30-2023 Albumin/Globulin [Mass ratio] 0.8 {ratio} 0.9-2.4 [facility] ALP [Catalytic activity/Vol] 93 U/L 45-117 [facility] ALT [Catalytic activity/Vol] 28 U/L 16-61 [facility] CO2 [Moles/Vol] 30.0 mmol/L 21.0-32.0 [facility] Globulin (S) [Mass/Vol] 4.3 g/dL 2.2-4.2 [facility] Magnesium [Mass/Vol] 2.4 mg/dL 1.6-2.6 [facility] Urea nitrogen/Creatinine [Mass ratio] 9.0 mg/mg 10-20 [facility] - Hematology and Cell countsOrdered By: [facility] on 09-30-2023 MCH (RBC) [Entitic mass] 30.7 pg 27.0-32.0 [facility] MCHC (RBC) [Mass/Vol] 31.4 g/dL 32-36 [facility] Nucleated RBC/100 WBC (Bld) [Ratio] 0 % 0-5 [facility] Platelet mean volume (Bld) [Entitic vol] 9.4 fL 6.2-12.0 [facility] Platelets (Bld) [#/Vol] 405 10*3/uL 150-450 [facility] No Panel InformationOrdered By: Nataliya Blanca on 09-30-2023 Estimated GFR (MDRD) Amer 107 mL/min >60 [facility] Comment on above: GFR Calc Estimated GFR (MDRD) Non-Af Amer 89 mL/min >60 [facility] Comment on above: Non- GFR Calc RBC Auto (Bld) [#/Vol]Ordere d By: Nataliya Blanca on 09-30-2023 RBC (Bld) [#/Vol] 4.49 10*6/uL 4.6-6.2 [facility] Serum or plasma calcium arthur urement (mass/volume)Ordered By: Nataliya Blanca on 09-30-2023 Calcium [Mass/Vol] 9.4 mg/dL 8.5-10.1 [facility] Serum or plasma creatinine m easurement (mass/volume)Ordered By: Nataliya Blanca on 09-30-2023 Creatinine [Mass/Vol] 0.89 mg/dL 0.70-1.30 [facility] Comment on above: The validity of the calculated GFR & GFRAA in patients over 70 years has not been determined. Clinical correlation is essential. Serum or plasma urea nitroge n measurement (mass/volume)Ordered By: Nataliya Blanca on 09-30-2023 Urea nitrogen [Mass/Vol] 8 mg/dL 7-18 [facility] Thin prep Papanicolaou smear with manual screeningOrdered By: Nataliya Blanca on 09-30-2023 Thin prep Papanicolaou smear with manual screening 3.3 g/dL 3.2-5.0 [facility] Thin prep Papanicolaou smear with manual screening 17 U/L 15-37 [facility] Thin prep Papanicolaou smear with manual screening 4 5-15 [facility] Absolute lymphocyte countOrd ered By: Nataliya Blanca on 06-17-2023 Lymphocytes Auto (Unsp spec) [#/Vol] 1.70 10*3/uL 0.83-4.51 [facility] Basophil percentageOrdered B y: Nataliya Blanca on 06-17-2023 Basophils/100 WBC (Bld) 0.5 % 0-1 [facility] Bilirubin [Mass/Vol] 0.40 mg/dL 0.20-1.00 [facility] Comment on above: For patients on eltr ombopag therapy, use of Dimension [place] TBIL is not recommended. Chloride [Moles/Vol] 105 mmol/L 98-107 [facility] Cholesterol [Mass/Vol] 148 mg/dL <200 [facility] Comment on above: <200 mg/dL Desirable 200-240 mg/dL Borderline >240 mg/dL High Risk Eosinophils/100 WBC (Bld) 3.1 % 0-5 [facility] Glucose [Mass/Vol] 112 mg/dL 74-106 [facility] Comment on above: Fasting Glucose resu lt from 100 to 125 mg/dL suggests IMPAIRED HOMEOSTASIS per A.D.A. criteria. Neutrophils (Bld) [#/Vol] 5.4 10*3/uL 2.0-7.7 [facility] Neutrophils/100 WBC (Bld) 67.4 % 47-70 [facility] Potassium [Moles/Vol] 4.3 mmol/L 3.5-5.1 [facility] Protein [Mass/Vol] 7.6 g/dL 6.4-8.2 [facility] Sodium [Moles/Vol] 138 mmol/L 136-145 [facility] Triglyceride [Mass/Vol] 112 mg/dL <199 [facility] Comment on above: The drugs N-Acetylcy steine and Metamizole may falsely depress this assay.Serum Triglycerides Reference Interval Normal <150 mg/dL Borderline high 150 - 199 mg/dL High 200 - 499 mg/dL Very High > or = 500 mg/dL WBC (Bld) [#/Vol] 8.0 10*3/uL 4.4-11.0 [facility] Blood erythrocytes count (nu mber/volume)Ordered By: Nataliya Blanca on 06-17-2023 RBC (Bld) [#/Vol] 4.79 10*6/uL 4.6-6.2 [facility] Blood hemoglobin measurement (mass/volume)Ordered By: Nataliya Blanca on 06-17-2023 Hemoglobin (Bld) [Mass/Vol] 14.8 g/dL 13.0-16.5 [facility] Blood lymphocytes/100 leukoc ytesOrdered By: Nataliyajens Blanca on 06-17-2023 Lymphocytes/100 WBC (Bld) 21.2 % 19-41 [facility] Blood monocytes/100 leukocyt esOrdered By: Nataliyajens Blanca on 06-17-2023 Monocytes/100 WBC (Bld) 7.7 % 0-10 [facility] Blood platelet mean volumeOr dered By: Nataliyajens Blanca on 06-17-2023 Platelet mean volume (Bld) [Entitic vol] 9.3 fL 6.2-12.0 [facility] Determination of erythrocyte mean corpuscular volume (MCV)Ordered By: Nataliyajens Blanca on 06-17-2023 MCV (RBC) [Entitic vol] 97.5 fL 80-94 [facility] Hematocrit Auto (Bld) [Volum e fraction]Ordered By: Belcourt Evangelist on 06-17-2023 Hematocrit (Bld) [Volume fraction] 46.7 % 40-54 [facility] - Chemistry and C hemistry - challengeOrdered By: [facility] on 06-17-2023 ALP [Catalytic activity/Vol] 93 U/L 45-117 [facility] ALT [Catalytic activity/Vol] 24 U/L 16-61 [facility] CO2 [Moles/Vol] 29.0 mmol/L 21.0-32.0 [facility] Globulin (S) [Mass/Vol] 3.8 g/dL 2.2-4.2 [facility] Urea nitrogen/Creatinine [Mass ratio] 13.0 mg/mg 10-20 [facility] - Hematology and Cell countsOrdered By: Belcourt Evangelist on 06-17-2023 Erythrocyte distribution width (RBC) [Entitic vol] 49.7 fL 35.1-43.9 [facility] Erythrocyte distribution width (RBC) [Ratio] 13.5 % 11.6-14.6 [facility] Immature granulocytes/100 WBC (Bld) 0.100 % 0.0-0.9 [facility] Comment on above: IG% - Immature Granu locytes (promyelocytes, myelocytes and metamyelocytes) > 1% indicates that a LEFT SHIFT is Present. MCH (RBC) [Entitic mass] 30.9 pg 27.0-32.0 [facility] Nucleated RBC/100 WBC (Bld) [Ratio] 0 % 0-5 [facility] MCHC Auto (RBC) [Mass/Vol]Or dered By: Nataliya Blanca on 06-17-2023 MCHC (RBC) [Mass/Vol] 31.7 g/dL 32-36 [facility] No Panel InformationOrdered By: Nataliya Blanca on 06-17-2023 Estimated GFR (MDRD) Amer 94 mL/min >60 [facility] Comment on above: GFR Calc Estimated GFR (MDRD) Non-Af Amer 78 mL/min >60 [facility] Comment on above: Non- GFR Calc Platelets bldOrdered By: Ca Blanca on 06-17-2023 Platelets (Bld) [#/Vol] 321 10*3/uL 150-450 [facility] Serum or plasma albumin arthur urement (mass/volume)Ordered By: Nataliya Blanca on 06-17-2023 Albumin [Mass/Vol] 3.8 g/dL 3.2-5.0 [facility] Serum or plasma albumin/glob ulin mass ratioOrdered By: Nataliya Blanca on 06-17-2023 Albumin/Globulin [Mass ratio] 1.0 {ratio} 0.9-2.4 [facility] Serum or plasma calcium arthur urement (mass/volume)Ordered By: Nataliya Blanca on 06-17-2023 Calcium [Mass/Vol] 9.1 mg/dL 8.5-10.1 [facility] Serum or plasma cholesterol in HDL measurement (mass/volume)Ordered By: Nataliya Blanca on 06-17-2023 Cholesterol in HDL [Mass/Vol] 59 mg/dL >40 [facility] Comment on above: The drugs N-Acetylcy steine and Metamizole may falsely depress this assay. Reference Range HDL <40 mg/dL Low HDL Cholesterol HDL >or= 60 mg/dL High HDL Cholesterol Serum or plasma cholesterol in VLDL measurement (mass/volume)Ordered By: Nataliya Blanca on 06-17-2023 Cholesterol in VLDL [Mass/Vol] 22 mg/dL 5-40 [facility] Serum or plasma creatinine m easurement (mass/volume)Ordered By: Nataliyajens Blanca on 06-17-2023 Creatinine [Mass/Vol] 1.00 mg/dL 0.70-1.30 [facility] Comment on above: The validity of the calculated GFR & GFRAA in patients over 70 years has not been determined. Clinical correlation is essential. Serum or plasma low density lipoprotein (LDL) cholesterol measurement (mass/volume)Ordered By: Nataliyajens Blanca on 06-17-2023 Cholesterol in LDL [Mass/Vol] 67 mg/dL 0-130 [facility] Serum or plasma urea nitroge n measurement (mass/volume)Ordered By: [facility] on 06-17-2023 Urea nitrogen [Mass/Vol] 13 mg/dL 7-18 [facility] Thin prep Papanicolaou smear with manual screeningOrdered By: Nataliyajens Blanca on 06-17-2023 Thin prep Papanicolaou smear with manual screening 15 U/L 15-37 [facility] Thin prep Papanicolaou smear with manual screening 4 5-15 [facility] Absolute lymphocyte counton 06-14-2022 Lymphocytes Auto (Unsp spec) [#/Vol] 2.16 10*3/uL 0.83-4.51 [facility] Work Phone: Basophil percentageon 2021 Basophils/100 WBC (Bld) 0.6 % 0-1 [facility] Work Phone: Bilirubin [Mass/Vol] 0.40 mg/dL 0.20-1.00 [facility] Work Phone: Comment on above: For patients on eltr ombopag therapy, use of Dimension [place] TBIL is not recommended. Chloride [Moles/Vol] 104 mmol/L 98-107 [facility] Work Phone: Cholesterol [Mass/Vol] 137 mg/dL <200 [facility] Work Phone: Comment on above: <200 mg/dL Desirable 200-240 mg/dL Borderline >240 mg/dL High Risk Eosinophils/100 WBC (Bld) 3.3 % 0-5 [facility] Work Phone: Glucose [Mass/Vol] 97 mg/dL 74-106 [facility] Work Phone: Neutrophils (Bld) [#/Vol] 5.6 10*3/uL 2.0-7.7 [facility] Work Phone: [phone] Neutrophils/100 WBC (Bld) 64.3 % 47-70 [facility] Work Phone: Potassium [Moles/Vol] 4.6 mmol/L 3.5-5.1 [facility] Work Phone: Protein [Mass/Vol] 7.5 g/dL 6.4-8.2 [facility] Work Phone: Sodium [Moles/Vol] 138 mmol/L 136-145 [facility] Work Phone: [phone] Triglyceride [Mass/Vol] 84 mg/dL <199 [facility] Work Phone: [phone] Comment on above: The drugs N-Acetylcy steine and Metamizole may falsely depress this assay.Serum Triglycerides Reference Interval Normal <150 mg/dL Borderline high 150 - 199 mg/dL High 200 - 499 mg/dL Very High > or = 500 mg/dL WBC (Bld) [#/Vol] 8.8 10*3/uL 4.4-11.0 [facility] Work Phone: [phone] Blood erythrocytes count (nu mber/volume)on 06-14-2022 RBC (Bld) [#/Vol] 4.51 10*6/uL 4.6-6.2 [facility] Work Phone: Blood hemoglobin measurement (mass/volume)on 06-14-2022 Hemoglobin (Bld) [Mass/Vol] 14.3 g/dL 13.0-16.5 [facility] Work Phone: Blood lymphocytes/100 leukoc yteson 06-14-2022 Lymphocytes/100 WBC (Bld) 24.6 % 19-41 [facility] Work Phone: Blood monocytes/100 leukocyt eson 06-14-2022 Monocytes/100 WBC (Bld) 6.9 % 0-10 [facility] Work Phone: Blood platelet mean volumeon 06-14-2022 Platelet mean volume (Bld) [Entitic vol] 9.6 fL 6.2-12.0 [facility] Work Phone: Determination of erythrocyte mean corpuscular volume (MCV)on 06-14-2022 MCV (RBC) [Entitic vol] 98.0 fL 80-94 [facility] Work Phone: Hematocrit Auto (Bld) [Volum e fraction]on 06-14-2022 Hematocrit (Bld) [Volume fraction] 44.2 % 40-54 [facility] Work Phone: [phone] Laboratory - Chemistry and C hemistry - challengeon 06-14-2022 ALP [Catalytic activity/Vol] 84 U/L 45-117 [facility] Work Phone: ALT [Catalytic activity/Vol] 22 U/L 16-61 [facility] Work Phone: CO2 [Moles/Vol] 28.0 mmol/L 21.0-32.0 [facility] Work Phone: [phone] Globulin (S) [Mass/Vol] 3.9 g/dL 2.2-4.2 [facility] Work Phone: [phone] Urea nitrogen/Creatinine [Mass ratio] 8.5 mg/mg 10-20 [facility] Work Phone: [phone] Laboratory - Hematology and Cell countson 06-14-2022 Erythrocyte distribution width (RBC) [Entitic vol] 49.5 fL 35.1-43.9 [facility] Work Phone: Erythrocyte distribution width (RBC) [Ratio] 13.6 % 11.6-14.6 [facility] Work Phone: [phone] Immature granulocytes/100 WBC (Bld) 0.300 % 0.0-0.9 [facility] Work Phone: [phone] Comment on above: IG% - Immature Granu locytes (promyelocytes, myelocytes and metamyelocytes) > 1% indicates that a LEFT SHIFT is Present. MCH (RBC) [Entitic mass] 31.7 pg 27.0-32.0 [facility] Work Phone: Nucleated RBC/100 WBC (Bld) [Ratio] 0 % 0-5 [facility] Work Phone: MCHC Auto (RBC) [Mass/Vol]on 06-14-2022 MCHC (RBC) [Mass/Vol] 32.4 g/dL 32-36 [facility] Work Phone: No Panel Informationon 06-14 Estimated GFR (MDRD) Amer 101 mL/min >60 [facility] Work Phone: Comment on above: GFR Calc Estimated GFR (MDRD) Non-Af Amer 83 mL/min >60 [facility] Work Phone: Comment on above: Non- GFR Calc Thyroid Stimulating Hormone (TSH) 1.80 uIU/mL 0.358-3.74 [facility] Work Phone: Platelets bldon 06-14-2022 Platelets (Bld) [#/Vol] 318 10*3/uL 150-450 [facility] Work Phone: Serum or plasma albumin arthur urement (mass/volume)on 06-14-2022 Albumin [Mass/Vol] 3.6 g/dL 3.2-5.0 [facility] Work Phone: [phone] Serum or plasma albumin/glob ulin mass ratioon 06-14-2022 Albumin/Globulin [Mass ratio] 0.9 {ratio} 0.9-2.4 [facility] Work Phone: [phone] Serum or plasma calcium arthur urement (mass/volume)on 06-14-2022 Calcium [Mass/Vol] 9.0 mg/dL 8.5-10.1 [facility] Work Phone: Serum or plasma cholesterol in HDL measurement (mass/volume)on 06-14-2022 Cholesterol in HDL [Mass/Vol] 54 mg/dL >40 [facility] Work Phone: Comment on above: The drugs N-Acetylcy steine and Metamizole may falsely depress this assay. Reference Range HDL <40 mg/dL Low HDL Cholesterol HDL >or= 60 mg/dL High HDL Cholesterol Serum or plasma cholesterol in VLDL measurement (mass/volume)on 06-14-2022 Cholesterol in VLDL [Mass/Vol] 17 mg/dL 5-40 [facility] Work Phone: Serum or plasma creatinine m easurement (mass/volume)on 06-14-2022 Creatinine [Mass/Vol] 0.95 mg/dL 0.70-1.30 [facility] Work Phone: Comment on above: The validity of the calculated GFR & GFRAA in patients over 70 years has not been determined. Clinical correlation is essential. Serum or plasma low density lipoprotein (LDL) cholesterol measurement (mass/volume)on 06-14-2022 Cholesterol in LDL [Mass/Vol] 66 mg/dL 0-130 [facility] Work Phone: Serum or plasma urea nitroge n measurement (mass/volume)on 06-14-2022 Urea nitrogen [Mass/Vol] 8 mg/dL 7-18 [facility] Work Phone: Thin prep Papanicolaou smear with manual screeningon 06-14-2022 Thin prep Papanicolaou smear with manual screening 14 U/L 15-37 [facility] Work Phone: Thin prep Papanicolaou smear with manual screening 6 5-15 [facility] Work Phone: CNOVon 11-24-2017 CNOV Office Visit ([facility]) LÁZARO ROBBINS ([id number]) 1950 MDate Time Provider Department11/24/17 4:45 PM [facility] During your visit today, we recorded the following information about you: Temperature Pulse Respiration Blood pressure 98.8 degrees 102/minute 18/minute 122/78 Weight 78 kgOneldonell CaryGLENNA muir 11/24/2017 5:06 PM SignedSubjectiveHPIHPI Lázaro Smith is a 67 year old [...] 95%ALLERGIESAllergen Reactions- Environmental [Othe*- Morphine Vomiting- Latex Spreckels [Other]ACTIVE PROBLEM LISTUnspecified Cardiovascular DiseaseChest Pain, UnspecifiedEsophageal [...] Number of children: 3Occupational HistoryOccupation Employer Comment [employer]*Social History Main Topics Smoking status: Former Smoker [...] worsening symptoms or condition changesPrednisone for airway congestion/wheezing/coughingZit hromax for infection please take as directed and finish the entireprescription unless instructed otherwise - start if symptoms worsen, and notalleviated by prednisone and albuterol2. Cough - ICD9: 786.2, ICD10: [id number] and treatment plan were discussed and questions were answered to thepatient's satisfaction. Pt acknowledged understanding of concepts and follow upplan.Specific signs and symptoms that would indicate the need for higher level ofcare were discussed in detail warranting prompt ER evaluation.Kelli Hairston APRN.Guillaume Hairston APRN.CNP 11/24/2017 5:02 PM SignedASSESSMENT/PLAN:1. COPD with [...] worsening symptoms or condition changesPrednisone for airway congestion/wheezing/coughingZit hromax for infection please take as directed and finish the entireprescription unless instructed otherwise - start if symptoms worsen, and notalleviated by prednisone and albuterol2. Cough - ICD9: 786.2, ICD10: [id number] Provider: SELF [200]Allergies As of Date: 11/24/2017 Noted Allergy ReactionENVIRONMENTAL [Other] 03/31/2005MORPHINE 12/18/2009 11 - Vomitinglatex paint [Other] 04/08/2006Date Reviewed: 11/24/2017Reviewed by: Kelli NguyenBrookline HospitalKait Hairston - Fully AssessedReason for Visit: cough [...] 500 MG CAPSULE Take one(1) capsule daily. [id number]* as needed for migraines ZONEGRAN 100 MG [...] albuterol 2. Cough - ICD9: 786.2, ICD10: [id number] ordered this encounter Disp Refills Start End PREDNISONE 20 MG TABLET 10 t* 0 11/24/2017 Sig: Prednisone 40 mg (2-20mg tablets) po QD for 5 days AZITHROMYCIN 250 MG TABLET 1 Pa* 0 11/24/2017 11/29/2017 Class: Print RX Sig: Take 2 tablets day one, then, 1 tablet daily until gone. Status:Closed by KELLI HAIRSTON CNP on 11/24/17 [facility] PROGRESSon 11-24-2017 PROGRESS HNO ID: [id number] thor: Kelli (Amelia) Blancaervice: (none)Author Type: Nurse PractitionerType: Progress NotesFiled: [...] 95%ALLERGIESAllergen Reactions- Environmental [Othe*- Morphine Vomiting- Latex Spreckels [Other]ACTIVE PROBLEM LISTUnspecified Cardiovascular DiseaseChest Pain, UnspecifiedEsophageal [...] Number of children: 3Occupational HistoryOccupation Employer Comment [employer]*Social History Main Topics Smoking status: Former Smoker [...] worsening symptoms or condition changesPrednisone for airway congestion/wheezing/coughingZit hromax for infection please take as directed and finish the entireprescription unless instructed otherwise - start if symptoms worsen, andnot alleviated by prednisone and albuterol2. Cough - ICD9: 786.2, ICD10: F18Sridbefsx and treatment plan were discussed and questions were answered tothe patient's satisfaction. Pt acknowledged understanding of concepts andfollow up plan.Specific signs and symptoms that would indicate the need for higher levelof care were discussed in detail warranting prompt ER evaluation.Kelli Hairston APRN.[facility] CNOVon 02-14-2017 CNOV Office Visit (UCWSTR) LÁZARO ROBBINS ([id number]) 1950 MDate Time Provider Department02/14/17 12:30 PM KAYLEEN SHI) WSTR During your visit today, we recorded [...] MG CAP) Take one(1) capsule daily. Disp: Rfl:0ACETAMINOPHEN-ISOMETHEPTEN E-DICHLORALPHENAZONE 325 MG-65 MG-100 MG ORAL CAP asneeded [...] facility-administered medications for this visit.PAST SURGICAL HISTORY01/26/1980: [id number]/25/05: COLONOSCOP W/ OR W/O [facility] SPEC Comment: Gsmjkknalcf70/1/2013: COLONOSCOP W/ OR W/O [facility] SPE[facility] Comment: Colonoscopy09/01/2005: CYSTO.PANENDO Comment: Cystoscopy, laser photovaporization of the prostate09/11/2001: LEFT HEART CATH,PERCUTANEOUS Comment: Cardiac cath, L heart01/2005: OP BRONCHOS DIAG, W/WO WASHING Comment: [id number]: PAST SURGICAL HISTORY OF Comment: cardiac stentNo date: REMOVAL OF TONSILS,ANDlt;11 Y/O Comment: [id number]: REPAIR ING HERNIA,5+Y/O,REDUCIBL Comment: Hernia repair, inguinal [...] in one week if symptoms persist or worsen.SIMON Oneill-Amando Shi PA-C 02/14/2017 12:57 PM SignedSINUSITIS:You have sinusitis, [...] [Other] 04/08/2006Date Reviewed: 02/14/2017Reviewed by: Steph Green Cma - Fully AssessedReason for Visit: Pain, Sinus [857] Cmt: sinus pressure/drainage x 3 days Cough [28] Cmt: cough,chest congestion x 3 days Nasal Congestion [235] Cmt: x 3 daysPrimary Visit Diagnosis:Acute non-recurrent maxillary sinusitis [J01.00]Order(s):amoxicillin-cl avulanic acid (AUGMENTIN) 875-125 mg per tabletTake 1 [...] 500 MG CAPSULE Take one(1) capsule daily. SJRTUMFKCLSHL-BXUKUACVESEYQ-R* as needed for migraines ZONEGRAN 100 MG [...] Status:Closed by KAYLEEN SHI PA-C on 02/14/17 [facility] PROGRESSon 02-14-2017 PROGRESS HNO ID: [id number] thor: Kayleen Mcelroy (Simon) AthyService: (none)Author Type: [...] MG CAP) Take one(1) capsule daily. Disp:Rfl: 6DRYZLDOUSBEJI-XELJWOUNZSMON-SQ CHLORALPHENAZONE 325 MG-65 MG-100 MG ORALCAP as needed [...] facility-administered medications for this visit.PAST SURGICAL HISTORY01/26/1980: [id number]/25/05: COLONOSCOP W/ OR W/O [facility] Comment: Hlfvjjrivok21/1/2013: COLONOSCOP W/ OR W/O [facility] SPE[facility] Comment: Colonoscopy09/01/2005: CYSTO.PANENDO Comment: Cystoscopy, laser photovaporization of the prostate09/11/2001: LEFT HEART CATH,PERCUTANEOUS Comment: Cardiac cath, L heart6/2005: OP BRONCHOS DIAG, W/WO WASHING Comment: [id number]: PAST SURGICAL HISTORY OF Comment: cardiac stentNo date: REMOVAL OF TONSILS,<12 Y/O Comment: [id number]: REPAIR ING HERNIA,5+Y/O,REDUCIBL Comment: Hernia repair, inguinal [...] symptoms persist or worsen.Kayleen Shi PA-C Normal [facility] Vital Signs Date Time Vital Sign Value Performing Clinician Cole aragon 05-14-2025 14:20-0400 Body height 172.72 cm Nataliya Blanca [employer] LOADER-C Work Phone: [facility] 05-14-2025 14:20-0400 Body mass index (BMI) [Ratio] 32.5 kg/m2 Nataliya Blanca [employer] LOADER-C Work Phone: [facility] 05-14-2025 14:20-0400 Body temperature 98.3 [degF] Nataliya Jaygar [employer] LOADER-C Work Phone: [facility] 05-14-2025 14:20-0400 Body weight 97.15 kg Nataliya Evangelist [employer]ADER-C Work Phone: [facility] 05-14-2025 14:20-0400 Diastolic blood pressure 74 mm[Hg] Nataliya Jaygar [employer] LOADER-C Work Phone: [facility] 05-14-2025 14:20-0400 Heart rate 63 /min Nataliya Jaygar [employer] LOADER-C Work Phone: [facility] 05-14-2025 14:20-0400 Respiratory rate 18 /min Nataliya Jaygar [employer] LOADER-C Work Phone: [facility] 05-14-2025 14:20-0400 SaO2% (BldA) [Mass fraction] 94 % Nataliya Blanca [employer] LOADER-C Work Phone: [facility] 05-14-2025 14:20-0400 Systolic blood pressure 127 mm[Hg] Nataliya Blanca [employer] LOADER-C Work Phone: [facility] 07-27-2022 12:43-0500 Body temperature 98 [degF] Dr. Luis Antonio Reed Work Phone: [facility] Work Phone: 07-27-2022 12:43-0500 Body weight 94.[address] Luis Antonio Reed Work Phone: [facility] Work Phone: 07-27-2022 12:43-0500 Diastolic blood pressure 81 mm[Hg] Dr. Luis Antonio Reed Work Phone: [facility] Work Phone: 07-27-2022 12:43-0500 Heart rate 68 /min Dr. Luis Antonio Reed Work Phone: [facility] Work Phone: 07-27-2022 12:43-0500 Respiratory rate 16 /min Dr. Luis Antonio Reed Work Phone: [facility] Work Phone: 07-27-2022 12:43-0500 SaO2% (BldA) [Mass fraction] 92 % Dr. Luis Antonio Reed Work Phone: [facility] Work Phone: 07-27-2022 12:43-0500 Systolic blood pressure 141 mm[Hg] Dr. Luis Antonio Reed Work Phone: [facility] Work Phone: Encounters Encounter Date Encounter Type Care Provider Facility Start: 09-10-2025 ambulatory Nataliya Jaygar Facility:[facility] CT Start: 05-14-2025 End: 05-14-2025 Patient encounter procedure Tari Newman [employer] LOADER-C -Cat Scan [facility] Work Phone: Start: 05-14-2025 End: 05-14-2025 ambulatory Nataliya Blanca [employer] LOADER-C Work Phone: [facility] Start: 05-14-2025 End: 05-14-2025 ambulatory Nataliya Blanca Facility:[facility] Start: 10-31-2024 End: 10-31-2024 ambulatory Nataliya Blanca [employer] LOADER-C Work Phone: [facility] Work Phone: Start: 10-31-2024 End: 10-31-2024 Patient encounter procedure Nataliya Blanca [employer]NA[employer] LOADER-C -Radiology, [place] Work Phone: Start: 10-31-2024 End: 10-31-2024 ambulatory Nataliya Blanca Facility:[facility] Start: 06-18-2024 End: 06-18-2024 ambulatory Nataliya Blanca Facility:[facility] Start: 10-14-2023 End: 10-14-2023 ambulatory [employer] Nataliya Blanca Work Phone: [facility] Work Phone: Start: 10-14-2023 End: 10-14-2023 Patient encounter procedure [employer]ER-C Nataliya Blanca Work Phone: [facility]-Radiology, [facility] Work Phone: Start: 10-11-2023 Non-patient / Non-visit [employer]-C Navi Blanca Work Phone: [facility] Start: 10-11-2023 End: 10-11-2023 ambulatory [employer]ER-C Nataliya Blanca Work Phone: [facility] Work Phone: Start: 10-11-2023 End: 10-11-2023 Patient encounter procedure [employer]-C Nataliya Blanca Work Phone: [facility] Work Phone: Start: 09-30-2023 End: 09-30-2023 ambulatory [facility] Work Phone: Start: 09-30-2023 End: 09-30-2023 Patient encounter procedure [facility] Hern[facility] Start: 08-16-2023 End: 08-16-2023 ambulatory [facility] Work Phone: Start: 08-16-2023 End: 08-16-2023 Patient encounter procedure [facility]-Cat Scan, [facility] Work Phone: Start: 06-17-2023 End: 06-17-2023 ambulatory [facility] Work Phone: Start: 06-17-2023 End: 06-17-2023 [facility] Start: 07-27-2022 End: 07-27-[address] Luis Antonio Reed Work Phone: [facility] Work Phone: Start: 07-27-2022 End: 07-27-[address] Luis Antonio Reed Work Phone: [facility] Start: 06-14-2022 End: 06-14-2022 ambulatory [facility] Work Phone: Start: 06-14-2022 End: 06-14-2022 Patient encounter procedure [facility] Tiffanie Hernández [facility] Start: 11-10-2020 End: 11-10-2020 Patient encounter procedure [place] Start: 10-20-2020 End: 10-20-2020 Patient encounter procedure [place] Start: 11-24-2017 End: 11-25-2017 Ambulatory DIMITRY FRYE [facility] Start: 02-14-2017 End: 02-18-2017 [facility] Procedures Date Procedure Procedure Detail Performing Clinician Start: 05-14-2025 CT of chest Nataliya garcia [employer]ER-C Work Phone: Start: 10-31-2024 X-ray of foot, three or more views Nataliya Blanca [employer]ER-C Work Phone: Start: 10-14-2023 X-ray of lumbosacral spine [employer]C Nataliya Blanca Work Phone: Start: 08-16-2023 CT of chest Start: 07-27-[address] Luis Antonio Reed Work Phone: Start: 01-12-2007 History of placement of stent for coronary artery disease History of coronary artery stent placement Comment on above: PCI-CHUCKIE-RPL w/ 3.0 x 13 mm Cypher 01/12/2007 Immunizations Immunization Date Immunization Notes Care Provider Fa [facility] 06-28-2014 Influenza virus vaccine [facility] 05-29-2012 pneumococcal vaccine , unspecified formulation [facility] Payers Date Payer Category Payer Private Health Insurance [id number] 2024 Self-pay [id number] Private Health Insurance [id number] Unknown [id number] Unknown [id number] [id number] [id number] Unknown [id number] 2.16.8 [id number] Unknown [id number] 2.16.8 [id number] Unknown [id number] 2.16.8 [id number] Unknown [id number] 2.16.8 [id number] Social History Date Type Detail Facility Start: 01-03-2019 End: 07-27-2022 Tobacco smoking status AKIS Unknown if ever smoked [facility] Start: 04-15-2015 None [facility] Start: 04-15-2015 Spouse/ Signif icant Other [facility] Start: 06-14-2022 Cigarettes [facility] Start: 1950 Sex Assigned At Male [facility] Start: 07-27-2022 End: 05-14-2025 Tobacco smoking status NHIS Ex-smoker (finding) [facility] Start: 11-09-2024 Sex Male (finding) [facility] Sex Male [facility] Evaluation note 05-14-2025 Note Date & Type Note Facility 05-14-2025 Evaluation note Diagnosis Onset Date Resolution Encounter for screening for malignant neoplasm of lung acute May 14, 2025 2:01pm History of tobacco use acute Se ptember 2024 2:01pm [facility] Work Phone: Radiology Diagnostic study note 05-14-2025 Note Date & Type Note Facility 05-14-2025 Radiology Diagnostic study note [facility] Imaging Services [address] [place] [address] Lung Screening MR#: [id number] Acct: [id number] Name: LÁZARO SMITH Rep #: [id number] : 1950 M 74 From: Scot Muir MD PCP: Nataliya Blanca [employer] LOADER-C Status: REG CLI Study:Low Dose CT Lung Screening Date of Exam : 05/14/25 Exam# [id number] Ordering Dr: Tari Scott NP [employer]ER-C PROCEDURE: LOW DOSE CT LUNG SCREENING 05/14/2025 REASON FOR EXAM: LUNG CANCER SCREENING Former smoker, quit 4-5 years ago. 1-1/2 pack per day smoker times 20 years TECHNIQUE: Procedure Code: CTLUNGSCREEN Modality: CT Procedure: LOW DOSE CT LUNG SCREENING Coronal and Sagittal reconstruction series were provided. One or more dose reduction techniques were used (e.g., Automated exposure control, adjustment of the mA and/or kV according to patient size, use of iterative reconstruction technique). REFERENCE LINK: [employer] [facility] [employer] Lung-RADS RADIATION DOSE SUMMARY: CTDlvol: 4.02 mGy DLP: 138.43 mGycm COMPARISON: None FINDINGS: Lung windows show underlying emphysema with emphysematous blebs throughout both lung duarte, interstitial scarring/honeycombing in the periphery of both lung duarte, and nonspecific pleural thickening. Thereis no organized infiltrate, or effusion, no suspicious noncalcified mass or nodule. Soft tissue windows show a normal-appearing thyroid gland. No suspicious axillary, mediastinal or perihilar adenopathy. The thoracic aorta tapers normally. There are calcified coronary vessels. Limited cuts through the upper abdomen do not show a suspicious abnormality. Bony structures show degenerative change CT/Low Dose CT Lung Screening IMPRESSION: Underlying emphysema with chronic interstitial fibrotic changes in both lung duarte, no superimposed process or suspicious noncalcified mass or nodule Coronary artery calcification (CAC) is is present Lung-RADS Category: 2 BENIGN (BASED ON IMAGING FEATURES OR INDOLENT BEHAVIOR). RECOMMEND 12-MONTH SCREENING LDCT. Other Significant Findings: Reading Location: GEO CC: HEIDE Blanca; HEIDE Newman ~ Template Maker: Signed [facility] Progress note 05-14-2025 Note Date & Type Note Facility 05-14-2025 Progress note [facility] Radiology Diagnostic study note 10-31-2024 Note Date & Type Note Facility 10-31-2024 Radiology Diagnostic study note [facility] Imaging Services [address] [place], [place] [id number] Foot min 3 Views MR#: [id number] Acct: [id number] Name: LÁZARO SMITH Rep #: [id number] : 1950 M 74 From: Angel Damon MD PCP: HEIDE Wilson Status: REG CLI Study:Foot min 3 Views Date of Exam: Exam# [id number] Ordering Dr: Ra samara Blanca PROCEDURE: FOOT MIN 3 VIEWS 10/31/2024 REASON FOR EXAM: RULE OUT FOOT FRACTURE TECHNIQUE: 3 view(s) of the right foot COMPARISON: None. RAD/Foot min 3 Views IMPRESSION: Generalized osteopenia is present. This reduces sensitivity for fractures. Bwto-jn-fjfrljlm degenerative changes are seen throughout the toes. Deformity of the distal shaft of the right 5th metatarsal bone is seen, with adjacent mature appearing callus formation, most probably representing a healed or healing fracture. Mild degenerative changes are seen throughout the midfoot and hindfoot. Mature appearing partial calcification of the plantar fascia is seen at the level of the distal calcaneus. A large inferior calcaneal spur is seen. Normal contour of the Achilles tendon is noted. No ankle joint effusion is seen. No acute fracture or dislocation is evident. If clinical concern persists, short-term follow-up imaging may be obtained to rule out a currently occult fracture. Reading Location: REX CC: [employer] LOADER-C Nataliya Evangelist ~ Template Maker: Signed [facility] Evaluation note Note Date & Type Note Facility Evaluation note No assessment information availa ble [facility] Work Phone: Evaluation note Note Date & Type Note Facility Evaluation note Diagnosis Onset Date Encounter for screening for malignant neoplasm of lung acute History of tobacco use acute [facility] Work Phone: Evaluation note Note Date & Type Note Facility Evaluation note Diagnosis Onset Date Resolution Encounter for screening for malignant neoplasm of lung acute May 14, 2025 2:01pm History of tobacco use acute Se pt2024 2:01pm [facility] Work Phone: Progress note Note Date & Type Note Facility Progress note Note Date/Time May 14, 2025 2:33pm [facility] [address] [place] [address]. [place] [address] OFFICE VISIT Date of Service: 05/14/25 1416 MR#: [id number] Acct: [id number] Name: LÁZARO SMITH Rep #: [id number] : 1950 From: Tari Figueroa ch [employer] LOADER [employer]NACE LOADER-C Age/Sex: 74/M Location: [facility] Status: Signed HPI HPI Reviewed eligibility criteria: 74 year old M with a 20 pack year smoking history(1/2-1 PPD x 30 years) . Smoking Status: Former smoker (quit 09/2021) Decision Making Engaged in shared decision making visit utilizing a visual aid. Discussed the risks and benefits of lung cancer screening including the total radiation exposure, false positive rate, over diagnosis and potential need for follow-up diagnostic testing all associated with low-dose chest CT. Comorbidities RBBB, CAD, HTN, Hyperlipidemia ROS Const Denies anorexia, Denies fatigue, Denies headache(s), Denies poor appetite and Denies weight loss ENT Denies headache(s) Card Denies chest pain, Reports dyspnea on exertion (improved after quitting tobacco,requires albuterol rescue 1-2 times per wk) and Denies palpitations Resp Denies cough, Reports dyspnea on exertion (improved after quitting tobacco, requires albuterol rescue 1-2 times per wk), Denies hemoptysis and Denies wheezing GI Reports system reviewed and no additional complaints, except as documented Reports system reviewed and no additional complaints, except as documented Musc Reports system reviewed and no additional complaints, except as documented Skin/Breast Reports system reviewed and no additional complaints, except as documented Neuro Yes system reviewed and no additional complaints, except as documented and No headache(s) Psych Reports system reviewed and no additional complaints, except as documented Endo Reports system reviewed and no additional complaints, except as documented, Denies fatigue and Denies palpitations Lio/Lymph Reports system reviewed and no additional complaints, except as documented Aller/Immun Denies wheezing Exam Const Orientation: alert and oriented x3 HENMT Head: normocephalic and atraumatic Neck Neck: supple and no lymphadenopathy noted Resp Effort & Inspection: normal respiratory effort Auscultation: Bilateral: Clear to Auscultation and Diminished Lung Sounds Cardio Rate: regular rate Rhythm: regular rhythm Heart Sounds: S1 normal and S2 normal Psych Affect: normal affect Speech and Movement: speech and movement normal Results Results May 14[address] Lung Screening IMPRESSION: Underlying emphysema with chronic interstitial fibrotic changes in both lung duarte, no superimposed process or suspicious noncalcified mass or nodule Coronary artery calcification (CAC) is is present Lung-RADS Category: 2 BENIGN (BASED ON IMAGING FEATURES OR INDOLENT BEHAVIOR). RECOMMEND 12-MONTH SCREENING LDCT. Intake Vital Signs 01/03/19 12:12 05/14/25 14:20 Height 5 ft 8 in 5 ft 8 in Weight: 214 lb 3 oz BMI 32.5 BP 127/74 H Blood Pressure Location Lt brachial Position Sitting Respiration 18 Pulse 63 Pulse Source Monitor Temp 98.3 F Temp Source Temporal Pulse Oximetry (%) 94 Oxygen Delivery Method room air Intake Visit Reasons: Lung Cancer Screening Allergies codeine Allergy (Verified 05/14/25 14:19) Unknown latex Adverse Reaction (Verified 05/14/25 14:19) Other morphine Adverse Reaction (Verified 05/14/25 14:19) Vomiting Medications ?Medication ?Instructions ?Recorded ?Confirmed ?Type mdrcppsr-duk-mkcyu acid 0.4 1 ea PO DAILY 11/06/14 History mg-lycopene 300 mcg-lutein 250 mcg tablet aspirin 81 mg chewable tablet 81 mg PO DAILY@0800 08/3 08/2905/14/25 History albuterol sulfate 90 mcg/actuation 2 puff inhalation Q 6H PRN 01/03/19 05/14/25 History aerosol inhaler atorvastatin 40 mg tablet 40 mg PO QHS #90 tabs 05/14/25 Rx metoprolol succinate 25 mg 25 mg PO QDAY #90 tabs 05/0605/14/25 Rx tablet,extended release 24 hr clopidogrel 75 mg tablet 75 mg PO DAILY #90 tabs 11/1405/14/25 Rx pantoprazole 40 mg tablet,delayed 40 mg PO DAILY #90 t abs 12/06/24 05/14/25 Rx release Have you fallen in the past year?: No PFSH Medical History History of tobacco use Encounter for screening for malignant neoplasm of lung Right bundle branch block (RBBB) Nicotine dependence Migraine BPH (benign prostatic hyperplasia) GERD (gastroesophageal reflux disease) Atherosclerosis of coronary artery of [place] heart without angina pectoris Essential (primary) hypertension Hyperlipidemia Surgical History History of left heart catheterization (04/14/15) History of appendectomy History of herniorrhaphy History of prostate surgery History of coronary artery stent placement (01/12/07) Family History Mother CAD (coronary artery disease) Sister CAD (coronary artery disease) Social History Smoking Status: Former smoker (quit 09/2021) Assessment and Plan (No Qualifiers) Assessment and Plan (1) Encounter for screening for malignant neoplasm of lung: Status: Acute Plan: 1. Per LUNG RADS category 2 a LDCT chest scan is recommended in 12 months. Patient is made aware images may be subject to multidisciplinary review and if alternate recommendations for screening are advised, he will be contacted via phone. 2. Other findings: Emphysema, coronary artery calcifications. Advise routine follow-up with his PCP. (2) History of tobacco use: Status: Acute Plan: Commended on cessation. 05/14/251731 <Electronically signed by Tari JAEGER> Date _ Tari Paty [employer] FURNACE LOADER CALCINE FURNACE LOADER-C Moreer Signature: Date (if applicable) CC: [employer]NACE LOADER-C Nataliya Jaygar ~ [facility] Work Phone: Reason for referral (narrative) Note Date & Type Note Facility Reason for referral (narrative) No reason for referral information available [facility] Work Phone: Summary Purpose Family History Relationship Condition Age at Onset Recorded Date/T jairo mother Coronary artery disease Unknown sister Coronary artery disease Unknown Advance Directives Advance Directive Response Recorded Date/ Time Advance Directives Yes July 3:20pm Living Will No October 25, 2018 9:38am Power of Lumber Sticker No October 25 9:38am Advance Directive Response Recorded Date/ Time Advance Directives Yes July 4:20pm Chief Complaint and Reason for Visit Chief Complaint Lung cancer screenin g NICOTINE DEPENDENCE Reason for Visit Encounter for screen ing for malignant neoplasm of lung History of tobacco use Chief Complaint SCREENING, QUIT SMOK ING 2019, HX >20 PK YRS Chief Complaint SCREENING, QUIT SMOK ING 2019, HX >20 PK YRS Cramp and spasm LUMBAR SPINCE XRAY - LEG PAIN Chief Complaint Admit Date RULE OUT FOOT FRACTURE October 31, 2024 2:27pm Chief Complaint Admit Date Lung Cancer Screening May 14 2:01pm Nicotine dependence, cigarettes, in celeste ssion May 14, 2025 2:38pm Reason for Visit Admit Date Encounter for screening for malignant ne oplasm of lung May 14, 2025 2:01pm History of tobacco use May 14 2:01pm Additional Source Comments (unrecognized sect ion and content) No Status Records FoundNo Status Records FoundNo Status Records Found INFORMATION SOURCE (unrecogn ized section and content) DATE CREATED AUTHOR 02/02/2018 [facility] DATE CREATED AUTHOR AUTHOR'S ORGANIZ ATION [facility] DATE CREATED AUTHOR AUTHOR'S ORGANIZ ATION 06/07/2025 [facility] Goals (unrecognized section and content) Goals may be documented in a n alternate sectionGoals may be documented in an alternate sectionGoals may be documented in an alternate sectionGoals may be documented in an alternate sectionGoals may be documented in an alternate sectionGoals may be documented in an alternate sectionGoals may be documented in an alternate sectionGoals may be documented in an alternate sectionGoals may be documented in an alternate sectionGoals may be documented in an alternate section Care Teams (unrecognized sec tion and content) Team Status: Active Member Role Status Dates Dr. Luis Antonio Reed MD Family Provider Active Dr. Luis Antonio Reed MD Primary Care Provider Active Team Status: Inactive Member Role Status Dates Dr. Luis Antonio Reed MD Primary Care Provider Active HEIDE Wilson Attending Provider Active Team Status: Active Member Role Status Dates Dr. Luis Antonio Reed MD Family Provider Active Nataliya Blanca NP-Bridger Primary Care Provider Active Team Status: Inactive Member Role Status Dates Nataliya Blanca NP-Bridger Primary Care Provide r, Attending Provider, Referring Provider Active Team Status: Inactive Member Role Status Dates HEIED Wilson Primary Care Provider, Attending P yusuf Active Team Status: Active Member Role Status Dates Nataliya Blanca NP-Bridger Primary Care Provider Active Dr. Andrew Albarado MD Attending Provider Active Team Status: Active Member Role Status Dates HEIDE Wilson Primary Care Provide r, Attending Provider, Referring Provider Active Team Status: Inactive Member Role Status Dates Nataliya Blanca NP-Bridger Primary Care Provider Active Start: October 31, 2024 End: October 31, 2024 HEIDE Wilson Attending Provider Active St art: October 31, 2024 End: October 31, 2024 Nataliya Blanca NP-Bridger Referring Provider Active St art: October 31, 2024 End: October 31, 2024 Team Status: Active Member Role/Relationship Status Dates HEIDE Wilson Primary care physician Active Team Status: Inactive Member Role/Relationship Status Dates HEIDE Wilson Primary care physician Active Start: May 14, 2025 End: May 14, 2025 Nataliya Blanca NP-Bridger Referring Provider Active St art: May 14, 2025 End: May 14, 2025 Tari Newman NP, [employer]ER-C Attending physician Active Start: May 14, 2025 End: May 14, 2025 Team Status: Active Member Role/Relationship Status Dates Nataliya Blanca NP-C Primary care physician Active Start: May 14, 2025 Tari Newman [employer]ADER, [employer]ADER-C Attending physician Active Start: May 14, 2025 Tari GerardPaty [employer] LOADER, [employer] LOADER-C Referring Provider Active Start: May 14, 2025 Team Status: Inactive Member Role/Relationship Status Dates Nataliya Blanca [employer]-C Primary care physician Active Start: May 14, 2025 End: May 14, 2025 Tari Millerach [employer] LOADER, [employer] LOADER-C Attending physician Active Start: May 14, 2025 End: May 14, 2025 Tari Millerach [employer] LOADER, [employer] LOADER-C Referring Provider Active Start: May 14, 2025 End: May 14, 2025 Team Status: Inactive Member Role/Relationship Status Dates Nataliya Blanca [employer]ER-C Primary care physician Active Start: May 14, 2025 End: May 14, 2025 Tari Millerach [employer] LOADER, [employer] LOADER-C Attending physician Active Start: May 14, 2025 End: May 14, 2025 Tari GerardPaty [employer] LOADER, [employer] LOADER-C Referring Provider Active Start: May 14, 2025 End: May 14, 2025 FOR RECORDS PERTAINING TO PATIENTS WHO ARE [...] BE BASED ON THE PRIMARY CLINICAL RECORDS. [facility]. provides no warranty or guarantee of the accuracy or completeness of information in this document.
[2025-06-28 20:42] LABS: Anion Gap 10 (5-15); BUN 9 mg/dL (4-19); BUN/Creat Ratio 9.7 RATIO (10-20); Calcium,Total 9.1 mg/dL (7.6-11.0); Carbon Dioxide 26.5 mmol/L (21.0-32.0); Chloride 104 mmol/L (98-108); Estimated Creatinine Clearance 77.23 ml/min (50-250); Glucose 108 mg/dL (70-99); Potassium 4.3 mmol/L (3.3-5.1)
[2025-06-28 21:00] VITALS: BP 139/67; PULSE 73; RESP 18; O2SAT 93
[2025-06-28 22:37] VITALS: BP 133/73; PULSE 71; RESP 18; TEMP 36.6; O2SAT 94
== END 2025-06-28 22:39 | disposition home or self-care (01) ==
PROVIDERS: Emergency Provider Student in an Organized Health Care Education/Training Program; PCP Nurse Practitioner Family; Visit Provider Student in an Organized Health Care Education/Training Program
DX: S22.49XA Multiple fractures of ribs, unspecified side, initial encounter for closed fracture (principal); K44.9 Diaphragmatic hernia without obstruction or gangrene; I25.10 Atherosclerotic heart disease of native coronary artery without angina pectoris; Z79.82 Long term (current) use of aspirin; Z79.02 Long term (current) use of antithrombotics/antiplatelets; E78.5 Hyperlipidemia, unspecified; Z87.891 Personal history of nicotine dependence; I10 Essential (primary) hypertension; Z95.5 Presence of coronary angioplasty implant and graft; K21.9 Gastro-esophageal reflux disease without esophagitis; V43.62XA Car passenger injured in collision with other type car in traffic accident, initial encounter; Z82.49 Family history of ischemic heart disease and other diseases of the circulatory system
CPT/HCPCS: 71260; 80048; 96374; 99285; Q9967; A4216

== ENCOUNTER → 2025-07-10 | Outpatient (CLI) | payer MEDICARE, SELFPAY ==
--- NOTE | 2025-07-10 14:10 | RAD_ITS ---
PROCEDURE: CHEST PA AND LATERAL 07/10/2025 REASON FOR EXAM: HEMOPTYSIS TECHNIQUE: Procedure Code: RADCXR Modality: DX Procedure: CHEST PA AND LATERAL COMPARISON: CT scan of the chest dated 06/28/2025 and chest x-ray dated 03/05/2024 FINDINGS: Hardware: None Heart: Heart is normal in size. Mediastinum: Mediastinum is unremarkable. Pulmonary arteries: Pulmonary arteries are prominent centrally. Lungs: Lungs are hyperinflated with flattening of the hemidiaphragms. Emphysematous changes are seen in the upper lobes. These findings are compatible with COPD. There is no atelectasis, consolidation, effusion or pneumonic infiltrate. Bones: Degenerative changes of the thoracic spine are noted. Diffuse osteopenia of the bony thorax is noted. RAD/Chest PA and Lateral IMPRESSION: COPD. There is no obvious pulmonary abnormality seen to correlate to the patient's sy mptom of hemoptysis. CT scan of the chest is more sensitive for detecting pulmonary abnormalities and may be of value if clinical ly warranted. Reading Location: [id number]
--- OUTSIDE RECORDS SUMMARY | 2025-07-10 14:37 | XMS RPT_ITS | CCD ---
Author Organization [facility] Care Team Providers Care Master Brewer Name Role Phone DIMITRY FRYE Unavailable Unavailable MIRIZACH BLAKE Attending Unavailable MIRIZACH ISLAS Primary Care Unavailable MIRIZACH Admitting Unavailable MIRIZACH Attending Unavailable MIRIZACH BLAKE Primary Care Unavailable MIRIZACH BLAKE Admitting Unavailable Dr. Luis Antonio Reed Primary Care Provider Dr. Luis Antonio Reed Referring Provider [phone] Paty AUDIO VISUAL FACILITIES ENGINEER, AUDIO VISUAL FACILITIES ENGINEER-C Tari Attending Provider [phone] Evangelist, AUDIO VISUAL FACILITIES ENGINEER-C Nataliya Primary Care Provider Dr. Andrew Albarado Attending Provider Evangelist AUDIO VISUAL FACILITIES ENGINEER-C, Nataliya Primary Care Provider Evangelist AUDIO VISUAL FACILITIES ENGINEER-C, Nataliya Attending Provider [phone] Evangelist AUDIO VISUAL FACILITIES ENGINEER-C, Nataliya Referring Provider [phone] Evangelist AUDIO VISUAL FACILITIES ENGINEER-C, Nataliya Primary Care Physician Evangelist AUDIO VISUAL FACILITIES ENGINEER-C, Nataliya Referring Provider [phone] Paty AUDIO VISUAL FACILITIES ENGINEER-C, Tari Attending Physician Paty AUDIO VISUAL FACILITIES ENGINEER-C, Tari Referring Provider [phone] Evangelist, Nataliya Referring Unavailable Evangelist, Nataliya Attending Unavailable Evangelist, Nataliya Primary Care Unavailable Evangelist, Nataliya Referring Unavailable Evangelist, Nataliya Attending Unavailable Evangelist, Nataliya Primary Care Unavailable Evangelist, Nataliya Primary Care Unavailable Paty, Tari Referring Unavailable Paty, Tari Attending Unavailable Evangelist, Nataliya Primary Care Unavailable Evangelist, Natlaiya Referring Unavailable Sergio Khoury Attending Unavailable Nataliya Blanca Primary Care Unavailable Tari Newman Referring Unavailable Tari Newman Attending Unavailable Paty AUDIO VISUAL FACILITIES ENGINEERTari Flores Referring Provider Allergies Allergy Classification Reported Allergen(s) Allergy Type Date of Onset Reaction(s) Facility (12 sources) morphine; Translations: [MORPHINE] Drug Allergy 0 AOF, Vomiting [facility] Repository (1 source) OTHER; Translations: [OTHER] Propensity to adverse reactions (disorder) 6 [facility] Repository (10 sources) Codeine Drug Allergy 9 Unknown [facility] Comment on above: Pt does not remember if or when he has ever had a reaction to codeine. (10 sources) Latex Propensity to adverse reactions 9 Other [facility] Comment on above: LATEX FUMES CAUSE SE KHADRA HEADACHE, (1 source) Codeine Drug Allergy 5 [facility] Repository (1 source) Latex Drug allergy (disorder) 5 [facility] Repository Medications Current Medications Medication Drug Class(es) Dates Sig (Normalized) Sig (Original) [id number] actuat albuterol 0.09 mg/actuat metered dose [...] 14, 2015 12:00am Complies with drug therapy Hfwltdbh-Vyr-Qh-Lyco pen-Lutein (7 sources) Start: 11-06-2014 Kmurpylr-Bda-Ie-Lyc open-Lutein Active 1 EACH PO DAILY November 05, 2014 11:00pm Wwobjosz-Txe-Fl-Lyco pen-Lutein 1 EACH tablet (3 sources) Start: 11-06-2014 Zyrdcfog-Cyr-Xs-Lyc open-Lutein 1 EACH tablet Active 1 NMA PO DAILY November 06, 2014 12:00am Complies with drug therapy Start: 11-06-2014 Start: 11-06-2014 Uwsvkgct-Hif-P r-Kbikezp-Ekwzng 1 EACH tablet Active 1 NMA PO DAILY November 06, 2014 12:00am [place]-3 Fatty Acids-Fish Oil (7 sources) Start: 11-06-2014 [place]-3 Fatty Acids-Fish Oil Active 1 EACH PO [...] 05, 2020 10:06am December 21, 2021 9:52am [place]-3 Fatty Acids-Fish Oil 1 EACH capsule (3 sources) Start: 11-06-2014 End: 05-14-2025 [place]-3 Fatty Acids-Fish Oil 1 EACH capsule Discontinued 1 NMA PO DAILY November 06, 2014 12:00am May 14, 2025 2:19pm Start: 11-06-2014 [place]-3 Fatty Acids-Fish Oil 1 EACH capsule Active [...] Coronary atherosclerosis; Translations: [Atherosclerotic heart disease of tribal coronary artery without angina pectoris] 01-02-2019 Chronic [...] Screeningon 05-14-[address] Lung Screening [facility] Imaging Services [address] [place] [address] Lung Screening MR#: [id number] Acct: [id number] Name: LÁZARO SMITH Rep #: [id number] : 1950 M 74 From: Fabricio Muir MD PCP: HEIDE Wilson Status: [facility] Study: Low Dose CT Lung Screening Date of Exam: 05/14 Exam# [id number] Ordering Dr: Tari Newman NP AUDIO VISUAL FACILITIES ENGINEER -C PROCEDURE: LOW DOSE CT LUNG SCREENING [...] use of iterative reconstruction technique). REFERENCE LINK: [employer] [place] Lung-RADS RADIATION DOSE SUMMARY: CTDlvol: 4.02 mGy [...] SCREENING LDCT. Other Significant Findings: Reading Location: [id number] CC: HEIDE Blanca; HEIDE Newman General Surgery Physician Assistant: Signed Normal [facility] Oncology Visit Reporton 04-17 Oncology Visit Report [facility] [address] [place] [address] OFFICE VISIT Date of Service: 05/14/25 1416 MR#: [id number] Acct: [id number] Name: LÁZARO SMITH Rep #: [id number] : 1950 From: Tari Flores Age/Sex: 74/M [place] [facility]: Signed HPI HPI Reviewed eligibility criteria: [...] Vomiting Medications ???Medication ???Instructions ???Recorded ???Confirmed ???Type topulsfz-cve-tqjpf acid 0.4 1 ea PO DAILY 11/06/14 [...] reflux disease) 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 Normal [facility] Foot min 3 Viewson Foot min 3 Views [facility] Imaging Services [address] [place] [address] Foot min 3 Views MR#: [id number] Acct: [id number] Name: LÁZARO SMITH Gordo Rep #: [id number] : 1950 M 74 From: Garcia Ramos PCP: HEIDE Wilson Status: REG CLI Study: Foot min 3 Views Date of Exam: 10/31/24 Exam# [id number] Ordering Dr: Nataliya Blanca PROCEDURE: FOOT MIN 3 VIEWS 10/31/2024 REASON FOR EXAM: RULE OUT FOOT FRACTURE TECHNIQUE: 3 view(s) of the right foot COMPARISON: None. RAD/Foot min 3 Views IMPRESSION: Generalized osteopenia is present. This reduces sensitivity for fractures. Jtah-vr-pquqitre degenerative changes are seen throughout the toes. [...] out a currently occult fracture. Reading Location: [id number] CC: HEIDE Blanca General Surgery Physician Assistant: Signed Normal [facility] CBC W/Diff, Automatedon 11-0 Absolute Lymph 1.55 X10 3/uL Normal 0.83-4.51 [facility] Comment on above: Performed By: #### L 501.9910, L100.0100, L500.4050, L500.4100 #### [facility] [address] [place], [address] Absolute Neut 5.2 X10 3/uL Normal 2.0-7.7 [facility] Comment on above: Performed By: #### L 501.9910, L100.0100, L500.4050, L500.4100 #### [facility] [address] [place], [address] Basophils/100 WBC (Bld) 0.4 % Normal 0-1 [facility] Comment on above: Performed By: #### L 501.9910, L100.0100, L500.4050, L500.4100 #### [facility] [address] [place], [address] Eosinophils/100 WBC (Bld) 2.4 % Normal 0-5 [facility] Comment on above: Performed By: #### L 501.9910, L100.0100, L500.4050, L500.4100 #### [facility] [address] [place], [address] Erythrocyte distribution width (RBC) [Ratio] 13.3 % Normal 11.6-14.6 [facility] Comment on above: Performed By: #### L 501.9910, L100.0100, L500.4050, L500.4100 #### [facility] [address] [place], [address] Hematocrit (Bld) [Volume fraction] 42.5 % Normal 40-54 [facility] Comment on above: Performed By: #### L 501.9910, L100.0100, L500.4050, L500.4100 #### [facility] [address] [place], [address] Hemoglobin (Bld) [Mass/Vol] 13.5 g/dL Normal 13.0-16.5 [facility] Comment on above: Performed By: #### L 501.9910, L100.0100, L500.4050, L500.4100 #### [facility] [address] [place], [address] IG% 0.500 Normal 0.0-0.9 [facility] Comment on above: Result Comment: IG% - Immature Granulocytes (promyelocytes, myelocytes and metamyelocytes) > 1% indicates that a LEFT SHIFT is Present. Performed By: #### L 501.9910, L100.0100, L500.4050, L500.4100 #### [facility] [address] [place], [address] Lymphocytes/100 WBC (Bld) 20.9 % Normal 19-41 [facility] Comment on above: Performed By: #### L 501.9910, L100.0100, L500.4050, L500.4100 #### [facility] [address] [place], [address] MCH (RBC) [Entitic mass] 31.3 pg Normal 27.0-32.0 [facility] Comment on above: Performed By: #### L 501.9910, L100.0100, L500.4050, L500.4100 #### [facility] [address] [place], [address] MCHC (RBC) [Mass/Vol] 31.8 g/dL Low 32-36 [facility] Comment on above: Performed By: #### L 501.9910, L100.0100, L500.4050, L500.4100 #### [facility] [address] [place], [address] MCV (RBC) [Entitic vol] 98.4 fL High 80-94 [facility] Comment on above: Performed By: #### L 501.9910, L100.0100, L500.4050, L500.4100 #### [facility] [address] [place], [address] Monocytes/100 WBC (Bld) 5.7 % Normal 0-10 [facility] Comment on above: Performed By: #### L 501.9910, L100.0100, L500.4050, L500.4100 #### [facility] [address] [place], [address] Neutrophils/100 WBC (Bld) 70.1 % High 47-70 [facility] Comment on above: Performed By: #### L 501.9910, L100.0100, L500.4050, L500.4100 #### [facility] [address] [place], [address] Nucleated RBC (Bld) [#/Vol] 0 10*3/uL Normal 0-5 [facility] Comment on above: Performed By: #### L 501.9910, L100.0100, L500.4050, L500.4100 #### [facility] [address] [place], [address] Platelet mean volume (Bld) [Entitic vol] 9.9 fL Normal 6.2-12.0 [facility] Comment on above: Performed By: #### L 501.9910, L100.0100, L500.4050, L500.4100 #### [facility] [address] [place], [address] Platelets (Bld) [#/Vol] 344 10*3/uL Normal 150-450 [facility] Comment on above: Performed By: #### L 501.9910, L100.0100, L500.4050, L500.4100 #### [facility] [address] [place], [address] RBC (Bld) [#/Vol] 4.32 10*6/uL Low 4.6-6.2 [facility] Comment on above: Performed By: #### L 501.9910, L100.0100, L500.4050, L500.4100 #### [facility] [address] [place], [address] RDW SD 49.0 fl High 35.1-43.9 [facility] Comment on above: Performed By: #### L 501.9910, L100.0100, L500.4050, L500.4100 #### [facility] [address] [place], [address] WBC (Bld) [#/Vol] 7.4 10*3/uL Normal 4.4-11.0 [facility] Comment on above: Performed By: #### L 501.9910, L100.0100, L500.4050, L500.4100 #### [facility] [address] [place], [address] Comprehensive Metabolic Prof ilon 06-18-2024 Albumin [Mass/Vol] 3.2 g/dL Normal 3.2-5.0 [facility] Comment on above: Performed By: #### L 501.9910, L100.0100, L500.4050, L500.4100 #### [facility] [address] [place], [address] Albumin/Globulin [Mass ratio] 0.8 {ratio} Low 0.9-2.4 [facility] Comment on above: Performed By: #### L 501.9910, L100.0100, L500.4050, L500.4100 #### [facility] [address] [place], [address] ALK P 99 U/L Normal 45-117 [facility] Comment on above: Performed By: #### L 501.9910, L100.0100, L500.4050, L500.4100 #### [facility] [address] [place], [address] ALT [Catalytic activity/Vol] 26 U/L Normal 16-61 [facility] Comment on above: Performed By: #### L 501.9910, L100.0100, L500.4050, L500.4100 #### [facility] [address] [place], [address] AST [Catalytic activity/Vol] 17 U/L Normal 15-37 [facility] Comment on above: Performed By: #### L 501.9910, L100.0100, L500.4050, L500.4100 #### [facility] [address] [place], [address] Bilirubin [Mass/Vol] 0.40 mg/dL Normal 0.20-1.00 [facility] Comment on above: Result Comment: For patients on eltrombopag therapy, use of Dimension [place] TBIL is not recommended. Performed By: #### L 501.9910, L100.0100, L500.4050, L500.4100 #### [facility] [address] [place], [address] BUN/CRE 6.7 RATIO Low 10-20 [facility] Comment on above: Performed By: #### L 501.9910, L100.0100, L500.4050, L500.4100 #### [facility] [address] [place], [address] CA,Total 9.3 mg/dL Normal 8.5-10.1 [facility] Comment on above: Performed By: #### L 501.9910, L100.0100, L500.4050, L500.4100 #### [facility] [address] [place], [address] Chloride [Moles/Vol] 105 mmol/L Normal 98-107 [facility] Comment on above: Performed By: #### L 501.9910, L100.0100, L500.4050, L500.4100 #### [facility] [address] [place], [address] CO2 [Moles/Vol] 28.0 mmol/L Normal 21.0-32.0 [facility] Comment on above: Performed By: #### L 501.9910, L100.0100, L500.4050, L500.4100 #### [facility] [address] [place], [address] Creatinine [Mass/Vol] 0.89 mg/dL Normal 0.70-1.30 [facility] Comment on above: Result Comment: The validity of the calculated GFR GFRAA in patients over 70 years has not been determined. Clinical correlation is essential. Performed By: #### L 501.9910, L100.0100, L500.4050, L500.4100 #### [facility] [address] [place], [address] EST GFR - AA 107 mL/min Normal >60 [facility] Comment on above: Result Comment: Afri can Guyanese GFR Calc Performed By: #### L 501.9910, L100.0100, L500.4050, L500.4100 #### [facility] [address] [place], [address] GAP 6 Normal 5-15 [facility] Comment on above: Performed By: #### L 501.9910, L100.0100, L500.4050, L500.4100 #### [facility] [address] [place], [address] GFR/1.73 sq M.predicted among non-blacks MDRD (S/P/Bld) [Vol rate/Area] 89 mL/min/{1.73_m2} Normal >60 [facility] Comment on above: Result Comment: Non- GFR Calc Performed By: #### L 501.9910, L100.0100, L500.4050, L500.4100 #### [facility] [address] [place], [address] Globulin (S) [Mass/Vol] 4.0 g/dL Normal 2.2-4.2 [facility] Comment on above: Performed By: #### L 501.9910, L100.0100, L500.4050, L500.4100 #### [facility] [address] [place], [address] Glucose [Mass/Vol] 109 mg/dL High 74-106 [facility] Comment on above: Result Comment: Fast ing Glucose result from 100 to 125 mg/dL suggests IMPAIRED HOMEOSTASIS per A.D.A. criteria. Performed By: #### L 501.9910, L100.0100, L500.4050, L500.4100 #### [facility] [address] [place], [address] Potassium [Moles/Vol] 4.2 mmol/L Normal 3.5-5.1 [facility] Comment on above: Performed By: #### L 501.9910, L100.0100, L500.4050, L500.4100 #### [facility] [address] [place], [address] Sodium [Moles/Vol] 139 mmol/L Normal 136-145 [facility] Comment on above: Performed By: #### L 501.9910, L100.0100, L500.4050, L500.4100 #### [facility] [address] [place], [address] T PROT 7.2 g/dL Normal 6.4-8.2 [facility] Comment on above: Performed By: #### L 501.9910, L100.0100, L500.4050, L500.4100 #### [facility] [address] [place], [address] Urea nitrogen [Mass/Vol] 6 mg/dL Low 7-18 [facility] Comment on above: Performed By: #### L 501.9910, L100.0100, L500.4050, L500.4100 #### [facility] [address] [place], [address] Lipid Profileon 06-18-2024 Cholesterol [Mass/Vol] 137 mg/dL Normal 200 [facility] Comment on above: Result Comment: <200 mg/dL Desirable 200-240 mg/dL Borderline >240 mg/dL High Risk Performed By: #### L 501.9910, L100.0100, L500.4050, L500.4100 #### [facility] [address] [place], [address] Cholesterol in HDL [Mass/Vol] 55 mg/dL Normal [facility] Comment on above: Result Comment: The drugs N-Acetylcysteine and Metamizole may falsely depress this assay. Reference Range HDL <40 mg/dL Low HDL Cholesterol HDL >or= 60 mg/dL High HDL Cholesterol Performed By: #### L 501.9910, L100.0100, L500.4050, L500.4100 #### [facility] [address] [place], [address] Cholesterol in LDL [Mass/Vol] 63 mg/dL Normal 0-130 [facility] Comment on above: Performed By: #### L 501.9910, L100.0100, L500.4050, L500.4100 #### [facility] [address] [place], [address] Cholesterol in VLDL [Mass/Vol] 19 mg/dL Normal 5-40 [facility] Comment on above: Performed By: #### L 501.9910, L100.0100, L500.4050, L500.4100 #### [facility] [address] [place], [address] Triglyceride [Mass/Vol] 95 mg/dL Normal [facility] Comment on above: Result Comment: The drugs N-Acetylcysteine and Metamizole may falsely depress this assay. Serum Triglycerides Reference Interval Normal <150 mg/dL Borderline high 150 - 199 mg/dL High 200 - 499 mg/dL Very High > or = 500 mg/dL Performed By: #### L 501.9910, L100.0100, L500.4050, L500.4100 #### [facility] [address] [place], [address] PSA,Total - Annual Screenon 06-18-2024 PSA,TOT SCREEN 5.32 ng/mL High 0.00-4.00 [facility] Comment on above: Result Comment: This test was performed using the TPSA assay method for the [facility] system. Values obtained with different assay methods cannot be used interchangably. When changing PSA assays in the course of monitoring a patient, additional sequential testing should be carried out to confirm baseline values. Performed By: #### L 501.9910, L100.0100, L500.4050, L500.4100 #### [facility] [address] [place], [address] Absolute lymphocyte countOrd ered By: Nataliya Blanca on 09-30-2023 Lymphocytes Auto (Unsp spec) [#/Vol] 1.96 10*3/uL 0.83-4.51 [facility] Automated lymphocyte count a s percentage of total leukocytesOrdered By: aNtaliya Blanca on 09-30-2023 Lymphocytes/100 WBC Auto (Unsp spec) 20.4 % 19-41 [facility] Basophil percentageOrdered B y: Nataliya Blanca on 09-30-2023 Basophils/100 WBC (Bld) 0.5 % 0-1 [facility] Bilirubin [Mass/Vol] 0.60 mg/dL 0.20-1.00 [facility] Comment on above: For patients on eltr ombopag therapy, use of Dimension [place] TBIL is not recommended. Chloride [Moles/Vol] 102 mmol/L 98-107 [facility] Eosinophils/100 WBC (Bld) 2.9 % 0-5 [facility] Glucose [Mass/Vol] 111 mg/dL 74-106 [facility] Comment on above: Fasting Glucose resu lt from 100 to 125 mg/dL suggests IMPAIRED HOMEOSTASIS per A.D.A. criteria. Hemoglobin (Bld) [Mass/Vol] 13.8 g/dL 13.0-16.5 [facility] Monocytes/100 WBC (Bld) 7.6 % 0-10 [facility] Neutrophils (Bld) [#/Vol] 6.6 10*3/uL 2.0-7.7 [facility] Neutrophils/100 WBC (Bld) 68.3 % 47-70 [facility] Potassium [Moles/Vol] 4.1 mmol/L 3.5-5.1 [facility] Protein [Mass/Vol] 7.6 g/dL 6.4-8.2 [facility] Sodium [Moles/Vol] 136 mmol/L 136-145 [facility] WBC (Bld) [#/Vol] 9.6 10*3/uL 4.4-11.0 [facility] Determination of erythrocyte mean corpuscular volume (MCV)Ordered By: Nataliya Jaygar on 09-30-2023 MCV (RBC) [Entitic vol] 97.8 fL 80-94 [facility] Erythrocyte distribution wid th ratioOrdered By: [place] Evangelist on 09-30-2023 Erythrocyte distribution width (RBC) [Ratio] 13.3 % 11.6-14.6 [facility] Erythrocyte distribution wid th standard deviationOrdered By: [facility] on 09-30-2023 Erythrocyte distribution width (RBC) [Entitic vol] 47.9 fL 35.1-43.9 [facility] Hematocrit Auto (Bld) [Volum e fraction]Ordered By: [place] Evangelist on 09-30-2023 Hematocrit (Bld) [Volume fraction] 43.9 % 40-54 [facility] Immature granulocytes/100 WB C Auto (Bld)Ordered By: [facility] on 09-30-2023 Immature granulocytes/100 WBC (Bld) 0.300 % 0.0-0.9 [facility] Comment on above: IG% - Immature Granu locytes (promyelocytes, myelocytes and metamyelocytes) > 1% indicates that a LEFT SHIFT is Present. Laboratory - Chemistry and C hemistry - challengeOrdered By: [facility] on 09-30-2023 Albumin/Globulin [Mass ratio] 0.8 {ratio} 0.9-2.4 [facility] ALP [Catalytic activity/Vol] 93 U/L 45-117 [facility] ALT [Catalytic activity/Vol] 28 U/L 16-61 [facility] CO2 [Moles/Vol] 30.0 mmol/L 21.0-32.0 [facility] Globulin (S) [Mass/Vol] 4.3 g/dL 2.2-4.2 [facility] Magnesium [Mass/Vol] 2.4 mg/dL 1.6-2.6 [facility] Urea nitrogen/Creatinine [Mass ratio] 9.0 mg/mg 10-20 [facility] Laboratory - Hematology and Cell countsOrdered By: [facility] on 09-30-2023 MCH (RBC) [Entitic mass] 30.7 pg 27.0-32.0 [facility] MCHC (RBC) [Mass/Vol] 31.4 g/dL 32-36 [facility] Nucleated RBC/100 WBC (Bld) [Ratio] 0 % 0-5 [facility] Platelet mean volume (Bld) [Entitic vol] 9.4 fL 6.2-12.0 [facility] Platelets (Bld) [#/Vol] 405 10*3/uL 150-450 [facility] No Panel InformationOrdered By: Nataliya Blanca on 09-30-2023 Estimated GFR (MDRD) Amer 107 mL/min >60 [facility] Comment on above: GFR Calc Estimated GFR (MDRD) Non-Af Amer 89 mL/min >60 [facility] Comment on above: Non- GFR Calc RBC Auto (Bld) [#/Vol]Ordere d By: Nataliya Blanca on 09-30-2023 RBC (Bld) [#/Vol] 4.49 10*6/uL 4.6-6.2 [facility] Serum or plasma calcium arthur urement (mass/volume)Ordered By: Nataliya Blanca on 09-30-2023 Calcium [Mass/Vol] 9.4 mg/dL 8.5-10.1 [facility] Serum or plasma creatinine m easurement (mass/volume)Ordered By: Nataliya Blanca on 09-30-2023 Creatinine [Mass/Vol] 0.89 mg/dL 0.70-1.30 [facility] Comment on above: The validity of the calculated GFR & GFRAA in patients over 70 years has not been determined. Clinical correlation is essential. Serum or plasma urea nitroge n measurement (mass/volume)Ordered By: Nataliya Blanca on 09-30-2023 Urea nitrogen [Mass/Vol] 8 mg/dL 7-18 [facility] Thin prep Papanicolaou smear with manual screeningOrdered By: Nataliya Blanca on 09-30-2023 Thin prep Papanicolaou smear with manual screening 3.3 g/dL 3.2-5.0 [facility] Thin prep Papanicolaou smear with manual screening 17 U/L 15-37 [facility] Thin prep Papanicolaou smear with manual screening 4 5-15 [facility] Absolute lymphocyte countOrd ered By: Nataliya Blanca on 06-17-2023 Lymphocytes Auto (Unsp spec) [#/Vol] 1.70 10*3/uL 0.83-4.51 [facility] Basophil percentageOrdered B y: Nataliya Blanca on 06-17-2023 Basophils/100 WBC (Bld) 0.5 % 0-1 [facility] Bilirubin [Mass/Vol] 0.40 mg/dL 0.20-1.00 [facility] Comment on above: For patients on eltr ombopag therapy, use of Dimension [place] TBIL is not recommended. Chloride [Moles/Vol] 105 mmol/L 98-107 [facility] Cholesterol [Mass/Vol] 148 mg/dL <200 [facility] Comment on above: <200 mg/dL Desirable 200-240 mg/dL Borderline >240 mg/dL High Risk Eosinophils/100 WBC (Bld) 3.1 % 0-5 [facility] Glucose [Mass/Vol] 112 mg/dL 74-106 [facility] Comment on above: Fasting Glucose resu lt from 100 to 125 mg/dL suggests IMPAIRED HOMEOSTASIS per A.D.A. criteria. Neutrophils (Bld) [#/Vol] 5.4 10*3/uL 2.0-7.7 [facility] Neutrophils/100 WBC (Bld) 67.4 % 47-70 [facility] Potassium [Moles/Vol] 4.3 mmol/L 3.5-5.1 [facility] Protein [Mass/Vol] 7.6 g/dL 6.4-8.2 [facility] Sodium [Moles/Vol] 138 mmol/L 136-145 [facility] Triglyceride [Mass/Vol] 112 mg/dL <199 [facility] Comment on above: The drugs N-Acetylcy steine and Metamizole may falsely depress this assay.Serum Triglycerides Reference Interval Normal <150 mg/dL Borderline high 150 - 199 mg/dL High 200 - 499 mg/dL Very High > or = 500 mg/dL WBC (Bld) [#/Vol] 8.0 10*3/uL 4.4-11.0 [facility] Blood erythrocytes count (nu mber/volume)Ordered By: Nataliya Blanca on 06-17-2023 RBC (Bld) [#/Vol] 4.79 10*6/uL 4.6-6.2 [facility] Blood hemoglobin measurement (mass/volume)Ordered By: Nataliya Blanca on 06-17-2023 Hemoglobin (Bld) [Mass/Vol] 14.8 g/dL 13.0-16.5 [facility] Blood lymphocytes/100 leukoc ytesOrdered By: Nataliyajens Blanca on 06-17-2023 Lymphocytes/100 WBC (Bld) 21.2 % 19-41 [facility] Blood monocytes/100 leukocyt esOrdered By: Nataliyajens Blanca on 06-17-2023 Monocytes/100 WBC (Bld) 7.7 % 0-10 [facility] Blood platelet mean volumeOr dered By: Nataliyajens Blanca on 06-17-2023 Platelet mean volume (Bld) [Entitic vol] 9.3 fL 6.2-12.0 [facility] Determination of erythrocyte mean corpuscular volume (MCV)Ordered By: Nataliyajens Blanca on 06-17-2023 MCV (RBC) [Entitic vol] 97.5 fL 80-94 [facility] Hematocrit Auto (Bld) [Volum e fraction]Ordered By: [place] Evangelist on 06-17-2023 Hematocrit (Bld) [Volume fraction] 46.7 % 40-54 [facility] Laboratory - Chemistry and C hemistry - challengeOrdered By: [facility] on 06-17-2023 ALP [Catalytic activity/Vol] 93 U/L 45-117 [facility] ALT [Catalytic activity/Vol] 24 U/L 16-61 [facility] CO2 [Moles/Vol] 29.0 mmol/L 21.0-32.0 [facility] Globulin (S) [Mass/Vol] 3.8 g/dL 2.2-4.2 [facility] Urea nitrogen/Creatinine [Mass ratio] 13.0 mg/mg 10-20 [facility] Laboratory - Hematology and Cell countsOrdered By: [place] Evangelist on 06-17-2023 Erythrocyte distribution width (RBC) [Entitic vol] 49.7 fL 35.1-43.9 [facility] Erythrocyte distribution width (RBC) [Ratio] 13.5 % 11.6-14.6 [facility] Immature granulocytes/100 WBC (Bld) 0.100 % 0.0-0.9 [facility] Comment on above: IG% - Immature Granu locytes (promyelocytes, myelocytes and metamyelocytes) > 1% indicates that a LEFT SHIFT is Present. MCH (RBC) [Entitic mass] 30.9 pg 27.0-32.0 [facility] Nucleated RBC/100 WBC (Bld) [Ratio] 0 % 0-5 [facility] MCHC Auto (RBC) [Mass/Vol]Or dered By: Nataliya Blanca on 06-17-2023 MCHC (RBC) [Mass/Vol] 31.7 g/dL 32-36 [facility] No Panel InformationOrdered By: Ntaaliya Blanca on 06-17-2023 Estimated GFR (MDRD) Amer 94 mL/min >60 [facility] Comment on above: GFR Calc Estimated GFR (MDRD) Non-Af Amer 78 mL/min >60 [facility] Comment on above: Non- GFR Calc Platelets bldOrdered By: Ca Blanca on 06-17-2023 Platelets (Bld) [#/Vol] 321 10*3/uL 150-450 [facility] Serum or plasma albumin arthur urement (mass/volume)Ordered By: Nataliya Blanca on 06-17-2023 Albumin [Mass/Vol] 3.8 g/dL 3.2-5.0 [facility] Serum or plasma albumin/glob ulin mass ratioOrdered By: Nataliya Blanca on 06-17-2023 Albumin/Globulin [Mass ratio] 1.0 {ratio} 0.9-2.4 [facility] Serum or plasma calcium arthur urement (mass/volume)Ordered By: Nataliya Blanca on 06-17-2023 Calcium [Mass/Vol] 9.1 mg/dL 8.5-10.1 [facility] Serum or plasma cholesterol in HDL measurement (mass/volume)Ordered By: Nataliya Blanca on 06-17-2023 Cholesterol in HDL [Mass/Vol] 59 mg/dL >40 [facility] Comment on above: The drugs N-Acetylcy steine and Metamizole may falsely depress this assay. Reference Range HDL <40 mg/dL Low HDL Cholesterol HDL >or= 60 mg/dL High HDL Cholesterol Serum or plasma cholesterol in VLDL measurement (mass/volume)Ordered By: Nataliya Blanca on 06-17-2023 Cholesterol in VLDL [Mass/Vol] 22 mg/dL 5-40 [facility] Serum or plasma creatinine m easurement (mass/volume)Ordered By: Nataliyajens Blanca on 06-17-2023 Creatinine [Mass/Vol] 1.00 mg/dL 0.70-1.30 [facility] Comment on above: The validity of the calculated GFR & GFRAA in patients over 70 years has not been determined. Clinical correlation is essential. Serum or plasma low density lipoprotein (LDL) cholesterol measurement (mass/volume)Ordered By: Nataliyajens Blanca on 06-17-2023 Cholesterol in LDL [Mass/Vol] 67 mg/dL 0-130 [facility] Serum or plasma urea nitroge n measurement (mass/volume)[facility] By: [facility] 06-17-[facility]23 Urea nitrogen [Mass/Vol] 13 mg/dL 7-18 [facility] Thin prep Papanicolaou smear with manual screeningOrdered By: Nataliyajens Blanca on 06-17-2023 Thin prep Papanicolaou smear with manual screening 15 U/L 15-37 [facility] Thin prep Papanicolaou smear with manual screening 4 5-15 [facility] Absolute lymphocyte counton 06-14-2022 Lymphocytes Auto (Unsp spec) [#/Vol] 2.16 10*3/uL 0.83-4.51 [facility] Work Phone: Basophil percentageon 2021 Basophils/100 WBC (Bld) 0.6 % 0-1 [facility] Work Phone: Bilirubin [Mass/Vol] 0.40 mg/dL 0.20-1.00 [facility] Work Phone: Comment on above: For patients on eltr ombopag therapy, use of Dimension [place] TBIL is not recommended. Chloride [Moles/Vol] 104 mmol/L 98-107 [facility] Work Phone: Cholesterol [Mass/Vol] 137 mg/dL <200 [facility] Work Phone: Comment on above: <200 mg/dL Desirable 200-240 mg/dL Borderline >240 mg/dL High Risk Eosinophils/100 WBC (Bld) 3.3 % 0-5 [facility] Work Phone: Glucose [Mass/Vol] 97 mg/dL 74-106 [facility] Work Phone: Neutrophils (Bld) [#/Vol] 5.6 10*3/uL 2.0-7.7 [facility] Work Phone: [phone] Neutrophils/100 WBC (Bld) 64.3 % 47-70 [facility] Work Phone: Potassium [Moles/Vol] 4.6 mmol/L 3.5-5.1 [facility] Work Phone: Protein [Mass/Vol] 7.5 g/dL 6.4-8.2 [facility] Work Phone: Sodium [Moles/Vol] 138 mmol/L 136-145 [facility] Work Phone: [phone] Triglyceride [Mass/Vol] 84 mg/dL <199 [facility] Work Phone: [phone] Comment on above: The drugs N-Acetylcy steine and Metamizole may falsely depress this assay.Serum Triglycerides Reference Interval Normal <150 mg/dL Borderline high 150 - 199 mg/dL High 200 - 499 mg/dL Very High > or = 500 mg/dL WBC (Bld) [#/Vol] 8.8 10*3/uL 4.4-11.0 [facility] Work Phone: [phone] Blood erythrocytes count (nu mber/volume)on 06-14-2022 RBC (Bld) [#/Vol] 4.51 10*6/uL 4.6-6.2 [facility] Work Phone: Blood hemoglobin measurement (mass/volume)on 06-14-2022 Hemoglobin (Bld) [Mass/Vol] 14.3 g/dL 13.0-16.5 [facility] Work Phone: Blood lymphocytes/100 leukoc yteson 06-14-2022 Lymphocytes/100 WBC (Bld) 24.6 % 19-41 [facility] Work Phone: Blood monocytes/100 leukocyt eson 06-14-2022 Monocytes/100 WBC (Bld) 6.9 % 0-10 [facility] Work Phone: Blood platelet mean volumeon 06-14-2022 Platelet mean volume (Bld) [Entitic vol] 9.6 fL 6.2-12.0 [facility] Work Phone: Determination of erythrocyte mean corpuscular volume (MCV)on 06-14-2022 MCV (RBC) [Entitic vol] 98.0 fL 80-94 [facility] Work Phone: Hematocrit Auto (Bld) [Volum e fraction]on 06-14-2022 Hematocrit (Bld) [Volume fraction] 44.2 % 40-54 [facility] Work Phone: [phone] Laboratory - Chemistry and C hemistry - challengeon 06-14-2022 ALP [Catalytic activity/Vol] 84 U/L 45-117 [facility] Work Phone: ALT [Catalytic activity/Vol] 22 U/L 16-61 [facility] Work Phone: CO2 [Moles/Vol] 28.0 mmol/L 21.0-32.0 [facility] Work Phone: [phone] Globulin (S) [Mass/Vol] 3.9 g/dL 2.2-4.2 [facility] Work Phone: [phone] Urea nitrogen/Creatinine [Mass ratio] 8.5 mg/mg 10-20 [facility] Work Phone: [phone] Laboratory - Hematology and Cell countson 06-14-2022 Erythrocyte distribution width (RBC) [Entitic vol] 49.5 fL 35.1-43.9 [facility] Work Phone: Erythrocyte distribution width (RBC) [Ratio] 13.6 % 11.6-14.6 [facility] Work Phone: [phone] Immature granulocytes/100 WBC (Bld) 0.300 % 0.0-0.9 [facility] Work Phone: [phone] Comment on above: IG% - Immature Granu locytes (promyelocytes, myelocytes and metamyelocytes) > 1% indicates that a LEFT SHIFT is Present. MCH (RBC) [Entitic mass] 31.7 pg 27.0-32.0 [facility] Work Phone: Nucleated RBC/100 WBC (Bld) [Ratio] 0 % 0-5 [facility] Work Phone: MCHC Auto (RBC) [Mass/Vol]on 06-14-2022 MCHC (RBC) [Mass/Vol] 32.4 g/dL 32-36 [facility] Work Phone: No Panel Informationon 06-14 Estimated GFR (MDRD) Amer 101 mL/min >60 [facility] Work Phone: Comment on above: GFR Calc Estimated GFR (MDRD) Non-Af Amer 83 mL/min >60 [facility] Work Phone: Comment on above: Non- GFR Calc Thyroid Stimulating Hormone (TSH) 1.80 uIU/mL 0.358-3.74 [facility] Work Phone: Platelets bldon 06-14-2022 Platelets (Bld) [#/Vol] 318 10*3/uL 150-450 [facility] Work Phone: Serum or plasma albumin arthur urement (mass/volume)on 06-14-2022 Albumin [Mass/Vol] 3.6 g/dL 3.2-5.0 [facility] Work Phone: [phone] Serum or plasma albumin/glob ulin mass ratioon 06-14-2022 Albumin/Globulin [Mass ratio] 0.9 {ratio} 0.9-2.4 [facility] Work Phone: [phone] Serum or plasma calcium arthur urement (mass/volume)on 06-14-2022 Calcium [Mass/Vol] 9.0 mg/dL 8.5-10.1 [facility] Work Phone: Serum or plasma cholesterol in HDL measurement (mass/volume)on 06-14-2022 Cholesterol in HDL [Mass/Vol] 54 mg/dL >40 [facility] Work Phone: Comment on above: The drugs N-Acetylcy steine and Metamizole may falsely depress this assay. Reference Range HDL <40 mg/dL Low HDL Cholesterol HDL >or= 60 mg/dL High HDL Cholesterol Serum or plasma cholesterol in VLDL measurement (mass/volume)on 06-14-2022 Cholesterol in VLDL [Mass/Vol] 17 mg/dL 5-40 [facility] Work Phone: Serum or plasma creatinine m easurement (mass/volume)on 06-14-2022 Creatinine [Mass/Vol] 0.95 mg/dL 0.70-1.30 [facility] Work Phone: Comment on above: The validity of the calculated GFR & GFRAA in patients over 70 years has not been determined. Clinical correlation is essential. Serum or plasma low density lipoprotein (LDL) cholesterol measurement (mass/volume)on 06-14-2022 Cholesterol in LDL [Mass/Vol] 66 mg/dL 0-130 [facility] Work Phone: Serum or plasma urea nitroge n measurement (mass/volume)on 06-14-2022 Urea nitrogen [Mass/Vol] 8 mg/dL 7-18 [facility] Work Phone: Thin prep Papanicolaou smear with manual screeningon 06-14-2022 Thin prep Papanicolaou smear with manual screening 14 U/L 15-37 [facility] Work Phone: Thin prep Papanicolaou smear with manual screening 6 5-15 [facility] Work Phone: CNOVon 11-24-2017 CNOV Office Visit (UCWSTR) LÁZARO ROBBINS ([id number]) 1950 MDate Time Provider Department11/24/17 4:45 PM [facility] During your visit today, we [...] 95%ALLERGIESAllergen Reactions- Environmental [Othe*- Morphine Vomiting- Latex [place] [Other]ACTIVE PROBLEM LISTUnspecified Cardiovascular DiseaseChest Pain, UnspecifiedEsophageal [...] Number of children: 3Occupational HistoryOccupation Employer Comment [employer]*Social History Main Topics Smoking status: Former [...] and albuterol2. Cough - ICD9: 786.2, ICD10: [id number] and treatment plan were discussed and questions [...] and albuterol2. Cough - ICD9: 786.2, ICD10: [id number] Provider: SELF [200]Allergies As of Date: 11/24/2017 Noted Allergy ReactionENVIRONMENTAL [Other] 03/31/2005MORPHINE 12/18/2009 11 - Vomitinglatex paint [Other] 04/08/2006Date Reviewed: 11/24/2017Reviewed by: Kelli NguyenGrafton State HospitalKait Hairston - Fully AssessedReason for Visit: [...] 500 MG CAPSULE Take one(1) capsule daily. [id number]-[id number]* as needed for migraines ZONEGRAN 100 MG [...] albuterol 2. Cough - ICD9: 786.2, ICD10: [id number] ordered this encounter Disp Refills Start End PREDNISONE 20 MG TABLET 10 t* 0 11/24/2017 Sig: Prednisone 40 mg (2-20mg tablets) po QD for 5 days AZITHROMYCIN 250 MG TABLET 1 Pa* 0 11/24/2017 11/29/2017 Class: Print RX Sig: Take 2 tablets day one, then, 1 tablet daily until gone. Status:Closed by KELLI HAIRSTON CNP on 11/24/17 [facility] PROGRESSon 11-24-2017 PROGRESS HNO ID: [id number] thor: Kelli (Amelia) Blancaervice: (none)Author Type: Nurse [...] 95%ALLERGIESAllergen Reactions- Environmental [Othe*- Morphine Vomiting- Latex [place] [Other]ACTIVE PROBLEM LISTUnspecified Cardiovascular DiseaseChest Pain, UnspecifiedEsophageal [...] Number of children: 3Occupational HistoryOccupation Employer Comment [employer]*Social History Main Topics Smoking status: Former [...] and albuterol2. Cough - ICD9: 786.2, ICD10: L90Cyjaarnlp and treatment plan were discussed and questions were answered tothe patient's satisfaction. Pt acknowledged understanding of concepts andfollow up plan.Specific signs and symptoms that would indicate the need for higher levelof care were discussed in detail warranting prompt ER evaluation.Kelli Hairston APRN.[facility] CNOVon 02-14-2017 CNOV Office Visit (UCWSTR) LÁZARO ROBBINS ([id number]) 1950 MDate Time Provider Department02/14/17 12:30 PM [...] facility-administered medications for this visit.PAST SURGICAL HISTORY01/26/1980: [id number]/25/05: COLONOSCOP W/ OR W/O [facility] SPEC Comment: Cwotstlreix31/1/2013: COLONOSCOP W/ OR W/O [facility] SPEC Comment: Colonoscopy09/01/2005: CYSTO.PANENDO Comment: Cystoscopy, laser photovaporization of the prostate09/11/2001: LEFT HEART CATH,PERCUTANEOUS Comment: Cardiac cath, L heart01/2005: OP BRONCHOS DIAG, W/WO WASHING Comment: [id number]: PAST SURGICAL HISTORY OF Comment: cardiac stentNo date: REMOVAL OF TONSILS,ANDlt;11 Y/O Comment: [id number]: REPAIR ING HERNIA,5+Y/O,REDUCIBL Comment: Hernia repair, inguinal [...] 500 MG CAPSULE Take one(1) capsule daily. VZLXUSJVBLHYR-GHIDLKZBKHXCR-I* as needed for migraines ZONEGRAN 100 MG [...] Status:Closed by KAYLEEN SHI PA-C on 02/14/17 [facility] PROGRESSon 02-14-2017 PROGRESS HNO ID: [id number] thor: Kayleen Mcelroy (Simon) AthyService: (none)Author Type: [...] MG CAP) Take one(1) capsule daily. Disp:Rfl: [id number]-IN CHLORALPHENAZONE 325 MG-65 MG-100 MG ORALCAP as [...] facility-administered medications for this visit.PAST SURGICAL HISTORY01/26/1980: [id number]/25/05: COLONOSCOP W/ OR W/O [facility] SPEC Comment: Zpcxuhyapqm81/1/2013: COLONOSCOP W/ OR W/O [facility] SPEC Comment: Colonoscopy09/01/2005: CYSTO.PANENDO Comment: Cystoscopy, laser photovaporization of the prostate09/11/2001: LEFT HEART CATH,PERCUTANEOUS Comment: Cardiac cath, L heart6/2005: OP BRONCHOS DIAG, W/WO WASHING Comment: [id number]: PAST SURGICAL HISTORY OF Comment: cardiac stentNo date: REMOVAL OF TONSILS,<12 Y/O Comment: [id number]: REPAIR ING HERNIA,5+Y/O,REDUCIBL Comment: Hernia repair, inguinal [...] symptoms persist or worsen.Kayleen Shi PA-C Normal [facility] Vital Signs Date Time Vital Sign Value Performing Clinician Cole aragon 05-14-2025 14:20-0400 Body height 172.72 cm Nataliya Blanca AUDIO VISUAL FACILITIES ENGINEER-C Work Phone: [facility] 05-14-2025 14:20-0400 Body mass index (BMI) [Ratio] 32.5 kg/m2 Nataliya Blanca AUDIO VISUAL FACILITIES ENGINEER-C Work Phone: [facility] 05-14-2025 14:20-0400 Body temperature 98.3 [degF] Nataliya Jaygar AUDIO VISUAL FACILITIES ENGINEER-C Work Phone: [facility] 05-14-2025 14:20-0400 Body weight 97.15 kg Nataliya Evangelist AUDIO VISUAL FACILITIES ENGINEER-C Work Phone: [facility] 05-14-2025 14:20-0400 Diastolic blood pressure 74 mm[Hg] Nataliya Jaygar AUDIO VISUAL FACILITIES ENGINEER-C Work Phone: [facility] 05-14-2025 14:20-0400 Heart rate 63 /min Nataliya Jaygar AUDIO VISUAL FACILITIES ENGINEER-C Work Phone: [facility] 05-14-2025 14:20-0400 Respiratory rate 18 /min Nataliya Jaygar AUDIO VISUAL FACILITIES ENGINEER-C Work Phone: [facility] 05-14-2025 14:20-0400 SaO2% (BldA) [Mass fraction] 94 % Nataliya Blanca AUDIO VISUAL FACILITIES ENGINEER-C Work Phone: [facility] 05-14-2025 14:20-0400 Systolic blood pressure 127 mm[Hg] Nataliya Blanca AUDIO VISUAL FACILITIES ENGINEER-C Work Phone: [facility] 07-27-2022 12:43-0500 Body temperature 98 [degF] Dr. Luis Antonio Reed Work Phone: [facility] Work Phone: 07-27-2022 12:43-0500 Body weight 94.[address] Luis Antonio Reed Work Phone: [facility] Work Phone: 07-27-2022 12:43-0500 Diastolic blood pressure 81 mm[Hg] Dr. Luis Antonio Reed Work Phone: [facility] Work Phone: 07-27-2022 12:43-0500 Heart rate 68 /min Dr. Luis Antonio Reed Work Phone: [facility] Work Phone: 07-27-2022 12:43-0500 Respiratory rate 16 /min Dr. Luis Antonio Reed Work Phone: [facility] Work Phone: 07-27-2022 12:43-0500 SaO2% (BldA) [Mass fraction] 92 % Dr. Luis Antonio Reed Work Phone: [facility] Work Phone: 07-27-2022 12:43-0500 Systolic blood pressure 141 mm[Hg] Dr. Luis Antonio Reed Work Phone: [facility] Work Phone: Encounters Encounter Date Encounter Type Care Provider Facility Start: 09-10-2025 ambulatory Nataliya Jaygar Facility:[facility] Start: 05-14-2025 End: 05-14-2025 Patient encounter procedure Tari Newman AUDIO VISUAL FACILITIES ENGINEER-C -Cat Scan [facility] Work Phone: Start: 05-14-2025 End: 05-14-2025 ambulatory Nataliya Blanca AUDIO VISUAL FACILITIES ENGINEER-C Work Phone: [facility] Start: 05-14-2025 End: 05-14-2025 ambulatory Nataliya Blanca Facility:[facility] Start: 10-31-2024 End: 10-31-2024 ambulatory Nataliya Blanca AUDIO VISUAL FACILITIES ENGINEER-C Work Phone: [facility] Work Phone: Start: 10-31-2024 End: 10-31-2024 Patient encounter procedure Nataliya Blanca AUDIO VISUAL FACILITIES ENGINEER-C -Radiology, [place] Work Phone: Start: 10-31-2024 End: 10-31-2024 ambulatory Nataliya Blanca Facility:[facility] Start: 06-18-2024 End: 06-18-2024 ambulatory Nataliya Blanca Facility:[facility] Start: 10-14-2023 End: 10-14-2023 ambulatory AUDIO VISUAL FACILITIES ENGINEER-C Nataliya Blanca Work Phone: [facility] Work Phone: Start: 10-14-2023 End: 10-14-2023 Patient encounter procedure AUDIO VISUAL FACILITIES ENGINEER-C Nataliya Blanca Work Phone: [facility]-Radiology, [facility] Work Phone: Start: 10-11-2023 Non-patient / Non-visit AUDIO VISUAL FACILITIES ENGINEER-C Navi Blanca Work Phone: [facility] Start: 10-11-2023 End: 10-11-2023 ambulatory AUDIO VISUAL FACILITIES ENGINEER-C Nataliya Blanca Work Phone: [facility] Work Phone: Start: 10-11-2023 End: 10-11-2023 Patient encounter procedure AUDIO VISUAL FACILITIES ENGINEER-C Nataliya Blanca Work Phone: [facility]-Cardiovascular Services Work Phone: Start: 09-30-2023 End: 09-30-2023 ambulatory [facility] Work Phone: Start: 09-30-2023 End: 09-30-2023 Patient encounter procedure [facility] Start: 08-16-2023 End: 08-16-2023 ambulatory [facility] Work Phone: Start: 08-16-2023 End: 08-16-2023 Patient encounter procedure [facility]-Cat Scan, [facility] Work Phone: Start: 06-17-2023 End: 06-17-2023 ambulatory [facility] Work Phone: Start: 06-17-2023 End: 06-17-2023 [facility] Start: 07-27-2022 End: 07-27-[address] Luis Antonio Reed Work Phone: [facility] Work Phone: Start: 07-27-2022 End: 07-27-[address] Luis Antonio Reed Work Phone: [facility] Start: 06-14-2022 End: 06-14-2022 ambulatory [facility] Work Phone: Start: 06-14-2022 End: 06-14-2022 Patient encounter procedure [facility] Start: 11-10-2020 End: 11-10-2020 Patient encounter procedure [facility] Start: 10-20-2020 End: 10-20-2020 Patient encounter procedure [facility] Start: 11-24-2017 End: 11-25-2017 Ambulatory DIMITRY FRYE [facility] Start: 02-14-2017 End: 02-18-2017 [facility] Date Procedure Procedure Detail Performing Clinician Start: 05-14-2025 CT of chest Nataliya garcia AUDIO VISUAL FACILITIES ENGINEER-C Work Phone: Start: 10-31-2024 X-ray of foot, three or more views Nataliya Blanca AUDIO VISUAL FACILITIES ENGINEER-C Work Phone: Start: 10-14-2023 X-ray of lumbosacral spine AUDIO VISUAL FACILITIES ENGINEER-C Nataliya Blanca Work Phone: Start: 08-16-2023 CT of chest Start: 07-27-[address] Luis Antonio Reed Work Phone: Start: 01-12-2007 History of placement of stent for coronary artery disease History of coronary artery stent placement Comment on above: PCI-CHUCKIE-RPL w/ 3.0 x 13 mm Cypher 01/12/2007 Immunizations Immunization Date Immunization Notes Care Provider Fa [facility] 06-28-2014 Influenza virus vaccine [facility] 05-29-2012 pneumococcal vaccine , unspecified formulation [facility] Payers Date Payer Category Payer Private Health Insurance 101 [id number] 2024 Self-pay [id number] Private Health Insurance [id number] Unknown [id number] Unknown [id number] [id number] [id number] Unknown [id number] [id number] [id number] Unknown [id number] 2.16.8 [id number] Unknown [id number] 2.16.8 [id number] Unknown [id number] 2.16.8 [id number] Social History Date Type Detail Facility Start: 01-03-2019 End: 07-27-2022 Tobacco smoking status VTIS Unknown if ever smoked [facility] Start: 04-15-2015 None [facility] Start: 04-15-2015 Spouse/ Signif icant Other [facility] Start: 06-14-2022 Cigarettes [facility] Start: 1950 Sex Assigned At Male [facility] Start: 07-27-2022 End: 05-14-2025 Tobacco smoking status NHIS Ex-smoker (finding) [facility] Start: 11-09-2024 Sex Male (finding) [facility] Sex Male [facility] Evaluation note 05-14-2025 Note Date & Type Note Facility 05-14-2025 Evaluation note Diagnosis Onset Date Resolution Encounter for screening for malignant neoplasm of lung acute May 14, 2025 2:01pm History of tobacco use acute Se ptember 2024 2:01pm [facility] Work Phone: Radiology Diagnostic study note 05-14-2025 Note Date & Type Note Facility 05-14-2025 Radiology Diagnostic study note [facility] Imaging Services [address] [place] [address] Lung Screening MR#: [id number] Acct: [id number] Name: LÁZARO SMITH Rep #: [id number] : 1950 M 74 From: Scot Muir MD PCP: Nataliya Blanca AUDIO VISUAL FACILITIES ENGINEER-C Status: REG CLI Study:Low Dose CT Lung Screening Date of Exam : 05/14/25 Exam# [id number] Ordering Dr: Tari Scott NP AUDIO VISUAL FACILITIES ENGINEER-C PROCEDURE: LOW DOSE CT LUNG SCREENING 05/14/2025 [...] use of iterative reconstruction technique). REFERENCE LINK: [employer] Lung-RADS RADIATION DOSE SUMMARY: CTDlvol: 4.02 mGy [...] GEO CC: HEIDE Blanca; HEIDE Newman ~ General Surgery Physician Assistant: Signed [facility] Progress note 05-14-2025 Note Date & Type Note Facility 05-14-2025 Progress note [facility] Radiology Diagnostic study note 10-31-2024 Note Date & Type Note Facility 10-31-2024 Radiology Diagnostic study note [facility] Imaging Services [address] [place], [place] [id number] Foot min 3 Views MR#: [id number] Acct: [id number] Name: LÁZARO SMITH Rep #: [id number] : 1950 M 74 From: Angel Damon MD PCP: HEIDE Wilson Status: REG CLI Study:Foot min 3 Views Date of Exam: Exam# [id number] Ordering Dr: Ra samara Blanca PROCEDURE: FOOT MIN 3 VIEWS 10/31/2024 REASON FOR EXAM: RULE OUT FOOT FRACTURE TECHNIQUE: 3 view(s) of the right foot COMPARISON: None. RAD/Foot min 3 Views IMPRESSION: Generalized osteopenia is present. This reduces sensitivity for fractures. Hlfo-jq-agvaoyza degenerative changes are seen throughout the toes. [...] currently occult fracture. Reading Location: [facility] CC: AUDIO VISUAL FACILITIES ENGINEER-C Nataliya Evangelist ~ General Surgery Physician Assistant: Signed [facility] Evaluation note Note Date & Type Note Facility Evaluation note No assessment information availa ble [facility] Work Phone: Evaluation note Note Date & Type Note Facility Evaluation note Diagnosis Onset Date Encounter for screening for malignant neoplasm of lung acute History of tobacco use acute [facility] Work Phone: Evaluation note Note Date & Type Note Facility Evaluation note Diagnosis Onset Date Resolution Encounter for screening for malignant neoplasm of lung acute May 14, 2025 2:01pm History of tobacco use acute Se pt2024 2:01pm [facility] Work Phone: Progress note Note Date & Type Note Facility Progress note Note Date/Time May 14, 2025 2:33pm [facility] [address] [place] [address]. [place] [address] OFFICE VISIT Date of Service: 05/14/25 1416 MR#: [id number] Acct: [id number] Name: LÁZARO SMITH Rep #: [id number] : 1950 From: Tari Figueroa ch AUDIO VISUAL FACILITIES ENGINEER AUDIO VISUAL FACILITIES ENGINEER-C Age/Sex: 74/M Location: [facility] [place] Status: Signed HPI HPI Reviewed eligibility criteria: [...] Vomiting Medications ?Medication ?Instructions ?Recorded ?Confirmed ?Type eqjoylos-egw-ikbko acid 0.4 1 ea PO DAILY 11/06/14 [...] reflux disease) Atherosclerosis of coronary artery of tribal heart without angina pectoris Essential (primary) hypertension [...] by Tari JAEGER> Date _ Tari Paty AUDIO VISUAL FACILITIES ENGINEER AUDIO VISUAL FACILITIES ENGINEER-C Moreer Signature: Date (if applicable) CC: AUDIO VISUAL FACILITIES ENGINEER-C Nataliya Jaygar ~ [facility] Work Phone: Reason for referral (narrative) Note Date & Type Note Facility Reason for referral (narrative) No reason for referral information available [facility] Work Phone: Summary Purpose Family History Relationship Condition Age at Onset Recorded Date/T jairo mother Coronary artery disease Unknown sister Coronary artery disease Unknown Advance Directives Advance Directive Response Recorded Date/ Time Advance Directives Yes July 3:20pm Living Will No October 25, 2018 9:38am Power of Playground Equipment Erector No October 25 9:38am Advance Directive Response [...] section and content) DATE CREATED AUTHOR 02/02/2018 [facility] DATE CREATED AUTHOR AUTHOR'S ORGANIZ ATION 11/19/2020 [facility] DATE CREATED AUTHOR AUTHOR'S ORGANIZ ATION 06/07/2025 [...] Team Status: Inactive Member Role Status Dates HEIDE Wilson Primary Care Provider, Attending P [email or web address] [...] End: May 14, 2025 Tari Newman NP, AUDIO VISUAL FACILITIES ENGINEER-C Attending physician Active Start: May 14, 2025 End: May 14, 2025 Team Status: Active Member Role/Relationship Status Dates Nataliya Blanca NP-C Primary care physician Active Start: May 14, 2025 Tari Newman AUDIO VISUAL FACILITIES ENGINEER, AUDIO VISUAL FACILITIES ENGINEER-C Attending physician Active Start: May 14, 2025 Tari GerardPaty AUDIO VISUAL FACILITIES ENGINEER, AUDIO VISUAL FACILITIES ENGINEER-C Referring Provider Active Start: May 14, 2025 Team Status: Inactive Member Role/Relationship Status Dates Nataliya Blanca AUDIO VISUAL FACILITIES ENGINEER-C Primary care physician Active Start: May 14, 2025 End: May 14, 2025 Tari Millerach AUDIO VISUAL FACILITIES ENGINEER, AUDIO VISUAL FACILITIES ENGINEER-C Attending physician Active Start: May 14, 2025 End: May 14, 2025 Tari Millerach AUDIO VISUAL FACILITIES ENGINEER, AUDIO VISUAL FACILITIES ENGINEER-C Referring Provider Active Start: May 14, 2025 End: May 14, 2025 Team Status: Inactive Member Role/Relationship Status Dates Nataliya Blanca AUDIO VISUAL FACILITIES ENGINEER-C Primary care physician Active Start: May 14, 2025 End: May 14, 2025 Tari Millerach AUDIO VISUAL FACILITIES ENGINEER, AUDIO VISUAL FACILITIES ENGINEER-C Attending physician Active Start: May 14, 2025 End: May 14, 2025 Tari GerardPaty AUDIO VISUAL FACILITIES ENGINEER, AUDIO VISUAL FACILITIES ENGINEER-C Referring Provider Active Start: May 14, 2025 [...] BE BASED ON THE PRIMARY CLINICAL RECORDS. [facility] [employer] [facility]. provides no warranty or guarantee of the accuracy or completeness of information in this document.
== END | disposition home or self-care (01) ==
LOC: MTRAD 14:08
PROVIDERS: PCP Nurse Practitioner Family; Referring Provider Nurse Practitioner Family; Visit Provider Nurse Practitioner Family
DX: R04.2 Hemoptysis (principal); S22.32XA Fracture of one rib, left side, initial encounter for closed fracture
CPT/HCPCS: 71046